=== PATIENT | female | born 1955 | race Caucasian/White ===

== ENCOUNTER 2020-08-17 15:10 | Outpatient (REF) | payer MEDICARE, MEDICAID, SELFPAY ==
--- NOTE | ~2020-08-17 | XR_ITS ---
EXAMINATION: XR HAND, LEFT CLINICAL INFORMATION: Pain COMPARISON: None TECHNIQUE: PA, lateral, and oblique views of the left hand. FINDINGS: Bone alignment is normal. No fracture or dislocation is seen. There is arthritis at the IP joints and first JAIL joint with joint space narrowing and osteophyte formation. Soft tissues are unremarkable. XR/XR hand LT min 3V IMPRESSION: Arthritis.
== END 2020-08-17 15:11 | disposition home or self-care (01) ==
LOC: HO.XRAY 15:10
PROVIDERS: PCP Family Medicine; Visit Provider Family Medicine
DX: M79.645 Pain in left finger(s) (principal); S69.92XA Unspecified injury of left wrist, hand and finger(s), initial encounter; X58.XXXA Exposure to other specified factors, initial encounter; Y93.9 Activity, unspecified; Y92.9 Unspecified place or not applicable; Y99.9 Unspecified external cause status
CPT/HCPCS: 73130

== ENCOUNTER 2020-10-03 14:01 | Outpatient (REF) | payer MEDICARE, MEDICAID, SELFPAY ==
--- NOTE | ~2020-10-03 | XR_ITS ---
EXAMINATION: XR CHEST CLINICAL INFORMATION: COPD COMPARISON: None TECHNIQUE: 2 views of the chest were obtained. FINDINGS: There is a 0.3 cm nodular focus at the right medial cardiophrenic angle that may also project on the lateral view over the spine. This would triangulate to a right lower lobe pulmonary nodule. Summation artifact is also a possibility. Otherwise, the lungs are clear. No pneumothorax or pleural effusion. Heart size is normal. No acute osseous abnormality. Tendon anchors left humeral head. XR/XR chest 2V IMPRESSION: There is a nodular density within the right lower lobe measuring 0.3 cm. In this patient with reported COPD, recommend follow-up with chest CT for further assessment.
== END 2020-10-03 14:02 | disposition home or self-care (01) ==
LOC: HO.XRAY 14:01
PROVIDERS: PCP Family Medicine; Visit Provider Internal Medicine
DX: J44.9 Chronic obstructive pulmonary disease, unspecified (principal); Z79.899 Other long term (current) drug therapy
CPT/HCPCS: 71046; 99202

== ENCOUNTER 2020-10-12 11:02 | Outpatient (REF) | payer MEDICARE, MEDICAID, SELFPAY ==
--- NOTE | 2020-10-12 | PFT_ITS ---
INDICATION: Bronchitis. SPIROMETRY: The FEV1 to FVC 80% with an FEV1 of 2.21 L, which is 94% predicted, and an FVC of 2.75 L, which is 88% predicted. No significant response to bronchodilators noted. Maximum voluntary ventilation 86% predicted. LUNG VOLUMES: The patient cannot achieve a good was not able to perform the lung volumes due to mild panic attack. DIFFUSION CAPACITY: DLCO 70% predicted. COMPARISONS: None. INTERPRETATION: No obstructive ventilatory defect. No significant response to bronchodilators noted. Normal maximum voluntary ventilation. The patient was not able to achieve lung volume due to unable to perform the maneuver. There appears to be a mild diffusion impairment based on her diffusion capacity. Clinical correlation warranted. MD SANTOS Alvarez/MODLatosha / [id number]
== END 2020-10-12 11:03 | disposition home or self-care (01) ==
LOC: HO.RESP 11:02
PROVIDERS: PCP Family Medicine; Visit Provider Internal Medicine
DX: J44.9 Chronic obstructive pulmonary disease, unspecified (principal)
CPT/HCPCS: 94060; 94729

== ENCOUNTER 2020-10-21 10:11 | Outpatient (REF) | payer MEDICARE, MEDICAID, SELFPAY ==
[2020-10-21 11:22] LABS: Estimated Average Glucose 186 mg/dL; Hemoglobin A1c % 8.1 %
[2020-10-21 11:47] LABS: Alanine Aminotransferase 29 U/L (0-31); Albumin Level 4.3 g/dL (3.5-5.0); Alkaline Phosphatase 118 U/L (39-117); Anion Gap 16 (12-20); Aspartate Amino Transferase 43 U/L (5-31); Bilirubin Total 0.6 mg/dL (0.0-1.0); Blood Urea Nitrogen 21 mg/dL (9-16); Carbon Dioxide 27 mmol/L (22-29); Chloride 101 mmol/L (96-108); Cholesterol 167 mg/dL; Estimated Glomerular Filt Rate 55; Glucose Fasting 130 mg/dL (60-99); HDL Cholesterol 36 mg/dL; LDL Cholesterol Calculated 78 mg/dl; Sodium 140 mmol/L (135-145); Total Protein 7.6 g/dL (6.5-8.0); Triglycerides 266 mg/dL
[2020-10-21 11:50] LABS: Glucose Urine UA NEG (NEG); Leukocyte Esterase Urine 1+ (NEG); Nitrite Urine NEG (NEG); PH 6.5 (5.0-8.0); Specific Gravity - Urine 1.015 (1.005-1.025); Urine Blood NEG (NEG); Urine Ketones NEG (NEG); Urine Protein TRACE MG/DL (NEG-TRACE)
[2020-10-21 11:58] LABS: Erythrocyte Sedimentation Rate 53 MM/HR (0-20); Rheumatoid Factor < 15.0 IU/mL (<15.0)
[2020-10-21 12:13] LABS: Appearance Urine HAZY; Color Urine YELLOW
[2020-10-21 12:17] LABS: Bacteria Urine 1+ /LPF; Mucus Urine 1+ /LPF; RBC Urine 0 /HPF (0); Squamous Epithelial Cell Urine 2+ /LPF
[2020-10-21 12:20] LABS: Microalbum/Creatinine Ratio Ur 22.5 ug/mg cr
[2020-10-24 13:36] LABS: Cyclic Citrullinated Peptide <16 UNITS
== END 2020-10-21 10:12 | disposition home or self-care (01) ==
LOC: HO.LAB 10:11
PROVIDERS: PCP Family Medicine; Visit Provider Family Medicine
DX: Z00.00 Encounter for general adult medical examination without abnormal findings (principal); M25.50 Pain in unspecified joint; E11.9 Type 2 diabetes mellitus without complications; I10 Essential (primary) hypertension
CPT/HCPCS: 36415; 80053; 80061; 81001; 81003; 82043; 83036; 84443; 85652; 86141; 86200; 86431

== ENCOUNTER 2020-11-02 13:00 | Outpatient (RCR) | payer MEDICARE, MEDICAID, SELFPAY ==
--- NOTE | 2020-10-11 14:22 | MHC.PT.EP ---
[facility] [place] Office [place] Office [place] Office [address] Gumaro Leal [address] [phone] F: [phone] F: [phone] F: [phone] F: [phone] Physical Therapy Plan of Care Date of Evaluation: Date of Surgery: NA Diagnosis: LUMBAGO WITH SCIATICA L SIDE Assessment: Pt IS 65 YO F REFERRED TO PT FROM DR JAMES WITH L SIDED SCIATICA. PRESENTS WITH COMPLAINTS OF PAIN AT MULTIPLE SITES IN HER BODY. OF SIGNIF NOTE IS THAT Pt REPORTS HAVING 6 C SECTIONS (18 SURGERIES T/O BODY IN TOTAL). Pt WITH SIGNIFICANT CORE WEAKNESS (WITH SIGNIF ABD BULGE NOTED WHEN SUSHILA ABDOMINAL MMS). Pt ALSO HAS L LE WEAKNESS WITH C/O L HIP PAIN. Pt REPORTS SHE HAS BEEN HOMELESS (LIVING IN HER TRUCK ) FOR ABOUT 4 MONTHS (REPORTS PRIOR TO THIS SHE WAS LIVING IN [facility] CARING FOR HER MOTHER AND STEP DAD (WHO ). Pt REPORTS HELPING HER ADULT DTR (WHO LIVES IN [place] WITH 2 TEEN AGED CHILDEREN) CLEAN HER HOUSE. DISCUSSION WITH Pt RE POSSIBILITY OF STAYING WITH HER DTR VS HER TRUCK. (Pt VAGUE ABOUT HER ABILITY TO STAY WITH HER DTR..REPORTS TRAVELS TO HER HOUSE FREQUENTLY TO CLEAN/ASSIST HER DTR AND HAS LEFT HER CATS THERE). Pt WILL LIKELY HAVE TROUBLE PERFORMING HER HOME PROG IF NOT ABLE TO STAY AT SOMEONE'S HOUSE. AND WILL HAVE DIFFICULTY PERFORMING EXS FOR L HIP/LE/LB BECAUSE OF MULTIPLE OTHER AREAS OF PAIN AND LIMITED MOBILITY. WILL TRY 1X/WK TO BEGIN A STRENGTHENING PROGRAM FOR LE/CORE. OF NOTE, Pt MAY BENEFIT FROM VESTIBULAR EVAL TO CHECK IF VERTIGO MAY BE BPPV AND IF SO, SCRIPT FOR TREATMENT Frequency and Duration: The patient will be seen 1X/WK X 6 WKS Short Term Goals: 1. Pt ABLE TO LIFT LE ONTO MAT/OFF MAT FOR TRANSFERS 2. Pt ABLE TO PERF SLR X 10 R ON L 3. Pt TO PERF SUP<>SL<>SIT TRANSFER WITH LOG ROLL TECHNIQUE [facility] Goals: 1. DECREASED BACK AND L LE PAIN AT LEAST 50% WITH ADLS 2. I HEP WITH DC EX PLAN 3. TRUNK ROM AT LEAST 75% FOR LAT FLEX AND ROT B Treatment Plan: Modalities to reduce pain, spasms and effusion. Manual therapy to restore motion and function. Therapeutic exercise to improve strength and flexibility. Neuromuscular re-education for posture and balance. Therapeutic activities to return to functional activities of daily living. Electronically signed by: LOKI DOMINGUEZ PT Please sign and return to therapist. Thank you for your referral.
--- NOTE | 2020-12-19 11:20 | MHC.PT.EP ---
[facility] [place] Office [place] Office [place] Office [address] Gumaro Leal [address] [phone] F: [phone] F: [phone] F: [phone] F: [phone] Physical Therapy Plan of Care Date of Evaluation: Date of Surgery: NA Diagnosis: LUMBAGO WITH SCIATICA L SIDE Assessment: Pt IS 65 YO F REFERRED TO PT FROM DR JAMES WITH L SIDED SCIATICA. PRESENTS WITH COMPLAINTS OF PAIN AT MULTIPLE SITES IN HER BODY. OF SIGNIF NOTE IS THAT Pt REPORTS HAVING 6 C SECTIONS (18 SURGERIES T/O BODY IN TOTAL). Pt WITH SIGNIFICANT CORE WEAKNESS (WITH SIGNIF ABD BULGE NOTED WHEN SUSHILA ABDOMINAL MMS). Pt ALSO HAS L LE WEAKNESS WITH C/O L HIP PAIN. Pt REPORTS SHE HAS BEEN HOMELESS (LIVING IN HER TRUCK ) FOR ABOUT 4 MONTHS (REPORTS PRIOR TO THIS SHE WAS LIVING IN [facility] CARING FOR HER MOTHER AND STEP DAD (WHO ). Pt REPORTS HELPING HER ADULT DTR (WHO LIVES IN [place] WITH 2 TEEN AGED CHILDEREN) CLEAN HER HOUSE. DISCUSSION WITH Pt RE POSSIBILITY OF STAYING WITH HER DTR VS HER TRUCK. (Pt VAGUE ABOUT HER ABILITY TO STAY WITH HER DTR..REPORTS TRAVELS TO HER HOUSE FREQUENTLY TO CLEAN/ASSIST HER DTR AND HAS LEFT HER CATS THERE). Pt WILL LIKELY HAVE TROUBLE PERFORMING HER HOME PROG IF NOT ABLE TO STAY AT SOMEONE'S HOUSE. AND WILL HAVE DIFFICULTY PERFORMING EXS FOR L HIP/LE/LB BECAUSE OF MULTIPLE OTHER AREAS OF PAIN AND LIMITED MOBILITY. WILL TRY 1X/WK TO BEGIN A STRENGTHENING PROGRAM FOR LE/CORE. OF NOTE, Pt MAY BENEFIT FROM VESTIBULAR EVAL TO CHECK IF VERTIGO MAY BE BPPV AND IF SO, SCRIPT FOR TREATMENT Frequency and Duration: The patient will be seen 1X/WK X 6 WKS Short Term Goals: 1. Pt ABLE TO LIFT LE ONTO MAT/OFF MAT FOR TRANSFERS 2. Pt ABLE TO PERF SLR X 10 R ON L 3. Pt TO PERF SUP<>SL<>SIT TRANSFER WITH LOG ROLL TECHNIQUE [facility] Goals: 1. DECREASED BACK AND L LE PAIN AT LEAST 50% WITH ADLS 2. I HEP WITH DC EX PLAN 3. TRUNK ROM AT LEAST 75% FOR LAT FLEX AND ROT B Treatment Plan: Modalities to reduce pain, spasms and effusion. Manual therapy to restore motion and function. Therapeutic exercise to improve strength and flexibility. Neuromuscular re-education for posture and balance. Therapeutic activities to return to functional activities of daily living. Electronically signed by: LOKI DOMINGUEZ PT Please sign and return to therapist. Thank you for your referral.
== END 2020-12-19 11:20 | disposition home or self-care (01) ==
LOC: HO.PTWFD 13:00
PROVIDERS: Visit Provider Family Medicine
DX: M54.42 Lumbago with sciatica, left side (principal)
CPT/HCPCS: 97110; 97116; 97140; 97162

== ENCOUNTER 2020-11-23 08:36 | Outpatient (REF) | payer MEDICARE, MEDICAID, SELFPAY | END 2020-11-23 08:37 | disposition home or self-care (01) | LOC: HO.WFDLDS 08:36 | PROVIDERS: Visit Provider Family Medicine | DX: R30.0 Dysuria (principal) | CPT/HCPCS: 87086 ==

== ENCOUNTER → 2020-12-14 09:14 | Outpatient (BNVA) | payer MEDICARE, MEDICAID, SELFPAY | PROVIDERS: PCP Family Medicine; Visit Provider Nurse Practitioner Family | DX: M47.816 Spondylosis without myelopathy or radiculopathy, lumbar region (principal); M25.50 Pain in unspecified joint; M54.42 Lumbago with sciatica, left side | CPT/HCPCS: 99202 ==

== ENCOUNTER 2021-02-17 10:09 | Outpatient (REF) | payer MEDICARE, MEDICAID, SELFPAY ==
[2021-02-18 17:17] LABS: Lyme Abs Screen <0.90 index
== END 2021-02-17 10:10 | disposition home or self-care (01) ==
LOC: HO.WFDLDS 10:09
PROVIDERS: Visit Provider Family Medicine
DX: T14.8XXA Other injury of unspecified body region, initial encounter (principal); W57.XXXA Bitten or stung by nonvenomous insect and other nonvenomous arthropods, initial encounter
CPT/HCPCS: 36415; 86617; 86618

== ENCOUNTER → 2021-06-08 13:14 | Outpatient (BNVA) | payer MEDICARE, MEDICAID, SELFPAY | PROVIDERS: PCP Family Medicine; Visit Provider Internal Medicine | DX: J44.9 Chronic obstructive pulmonary disease, unspecified (principal); R91.1 Solitary pulmonary nodule; Z88.8 Allergy status to other drugs, medicaments and biological substances; Z79.84 Long term (current) use of oral hypoglycemic drugs; Z79.899 Other long term (current) drug therapy; Z59.00 Homelessness unspecified | CPT/HCPCS: 94618; 99212 ==

== ENCOUNTER 2021-08-18 10:34 | Outpatient (REF) | payer MEDICARE, MEDICAID, SELFPAY ==
[2021-08-18 13:29] LABS: MANUAL DIFF FLAG NO
[2021-08-18 13:31] LABS: Basophils Absolute Auto 0.1 X10*3/uL (0.0-0.2); Basophils Percent Auto 1.2 % (0-2); Eosinophils Absolute Auto 0.2 X10*3/uL (0.0-0.4); Eosinophils Percent Auto 2.3 % (0-4); Hematocrit 38.7 % (37.0-47.0); Hemoglobin 12.6 g/dl (12.0-16.0); Imm Gran Abs Auto 0.02 X10*3/uL (0.00-0.03); Imm Gran Pct Auto 0.3 % (0.0-0.4); Lymphocytes Absolute Auto 2.7 X10*3/uL (1.2-4.9); Lymphocytes Percent Auto 36.9 % (20-40); Mean Corpuscular HGB Conc 32.6 g/dl (31.0-35.0); Mean Corpuscular Hemoglobin 28.9 pg (27.0-33.0); Mean Corpuscular Volume 88.8 fL (80.0-98.0); Mean Platelet Volume 12.2 fL (9.4-12.3); Monocytes Absolute Auto 0.5 X10*3/uL (0.1-1.2); Monocytes Percent Auto 7.1 % (2-11); Neutrophils Absolute Auto 3.9 x10*3/uL (2.0-8.3); Neutrophils Percent Auto 52.2 % (45-73); Platelet Count 199 X10*3/uL (160-400); Red Blood Count 4.36 X10*6/uL (4.20-5.50); Red Cell Distribution Width 13.2 % (11.0-16.0); White Blood Count 7.4 X10*3/uL (4.8-10.8)
[2021-08-18 13:44] LABS: Alanine Aminotransferase 32 U/L (0-31); Albumin Level 4.2 g/dL (3.5-5.0); Alkaline Phosphatase 115 U/L (39-117); Anion Gap 16 (12-20); Aspartate Amino Transferase 55 U/L (5-31); Bilirubin Total 0.5 mg/dL (0.0-1.0); Blood Urea Nitrogen 30 mg/dL (9-16); Carbon Dioxide 27 mmol/L (22-29); Chloride 100 mmol/L (96-108); Cholesterol 191 mg/dL; Estimated Glomerular Filt Rate 49; Glucose Fasting 148 mg/dL (60-99); HDL Cholesterol 38 mg/dL; LDL Cholesterol Calculated 102 mg/dl; Sodium 139 mmol/L (135-145); Total Protein 7.5 g/dL (6.5-8.0); Triglycerides 256 mg/dL
[2021-08-18 14:05] LABS: TSH reflex Free T4 2.86 uIU/mL (0.32-4.0)
== END 2021-08-18 10:35 | disposition home or self-care (01) ==
LOC: HO.WFDLDS 10:34
PROVIDERS: Visit Provider Family Medicine
DX: Z00.00 Encounter for general adult medical examination without abnormal findings (principal)
CPT/HCPCS: 36415; 80053; 80061; 84443; 85025

== ENCOUNTER 2021-08-30 12:39 | Outpatient (REF) | payer MEDICARE, MEDICAID, SELFPAY ==
[2021-08-30 14:40] LABS: Alanine Aminotransferase 25 U/L (0-31); Albumin Level 4.2 g/dL (3.5-5.0); Alkaline Phosphatase 141 U/L (39-117); Anion Gap 14 (12-20); Aspartate Amino Transferase 25 U/L (5-31); Bilirubin Total 0.3 mg/dL (0.0-1.0); Blood Urea Nitrogen 19 mg/dL (9-16); Carbon Dioxide 29 mmol/L (22-29); Chloride 101 mmol/L (96-108); Estimated Glomerular Filt Rate 56; Glucose Random 158 mg/dL (60-115); Potassium 3.7 mmol/L (3.3-5.1); Sodium 140 mmol/L (135-145); Total Protein 7.8 g/dL (6.5-8.0)
== END 2021-08-30 12:40 | disposition home or self-care (01) ==
LOC: HO.WFDLDS 12:39
PROVIDERS: Visit Provider Family Medicine
DX: R74.8 Abnormal levels of other serum enzymes (principal)
CPT/HCPCS: 36415; 80053

== ENCOUNTER 2021-09-15 11:57 | Outpatient (REF) | payer MEDICARE, MEDICAID, SELFPAY ==
[2021-09-15 13:29] LABS: Appearance Urine CLEAR; Color Urine YELLOW; Glucose Urine UA NEG (NEG); Leukocyte Esterase Urine NEG (NEG); Nitrite Urine NEG (NEG); Urine Blood NEG (NEG); Urine Ketones NEG (NEG); Urine Protein NEG (NEG-TRACE)
== END 2021-09-15 11:58 | disposition home or self-care (01) ==
LOC: HO.WFDLDS 11:57
PROVIDERS: Visit Provider Family Medicine
DX: Z00.00 Encounter for general adult medical examination without abnormal findings (principal)
CPT/HCPCS: 81003

== ENCOUNTER → 2021-10-25 13:45 | Outpatient (BNVA) | payer MEDICARE, MEDICAID, SELFPAY | PROVIDERS: PCP Family Medicine; Visit Provider Physician Assistant | DX: R10.9 Unspecified abdominal pain (principal) | CPT/HCPCS: 99202; 99212 ==

== ENCOUNTER → 2021-11-14 10:34 | Outpatient (BNVA) | payer MEDICARE, MEDICAID, SELFPAY | PROVIDERS: PCP Family Medicine; Visit Provider Surgery | DX: R63.8 Other symptoms and signs concerning food and fluid intake (principal); R19.7 Diarrhea, unspecified; R10.9 Unspecified abdominal pain; J44.9 Chronic obstructive pulmonary disease, unspecified; E11.9 Type 2 diabetes mellitus without complications; I10 Essential (primary) hypertension; M62.08 Separation of muscle (nontraumatic), other site | CPT/HCPCS: 99202 ==

== ENCOUNTER 2021-11-22 12:05 | Outpatient (REF) | payer MEDICARE, MEDICAID, SELFPAY ==
[2021-11-22 13:15] LABS: MANUAL DIFF FLAG NO
[2021-11-22 13:20] LABS: Basophils Absolute Auto 0.1 X10*3/uL (0.0-0.2); Basophils Percent Auto 1.1 % (0-2); Eosinophils Absolute Auto 0.4 X10*3/uL (0.0-0.4); Eosinophils Percent Auto 4.4 % (0-4); Hematocrit 38.6 % (37.0-47.0); Hemoglobin 12.3 g/dl (12.0-16.0); Imm Gran Abs Auto 0.03 X10*3/uL (0.00-0.03); Imm Gran Pct Auto 0.3 % (0.0-0.4); Lymphocytes Absolute Auto 3.4 X10*3/uL (1.2-4.9); Lymphocytes Percent Auto 35.4 % (20-40); Mean Corpuscular HGB Conc 31.9 g/dl (31.0-35.0); Mean Corpuscular Hemoglobin 27.8 pg (27.0-33.0); Mean Corpuscular Volume 87.3 fL (80.0-98.0); Mean Platelet Volume 11.7 fL (9.4-12.3); Monocytes Absolute Auto 0.7 X10*3/uL (0.1-1.2); Monocytes Percent Auto 7.5 % (2-11); Neutrophils Absolute Auto 4.9 x10*3/uL (2.0-8.3); Neutrophils Percent Auto 51.3 % (45-73); Platelet Count 201 X10*3/uL (160-400); Red Blood Count 4.42 X10*6/uL (4.20-5.50); Red Cell Distribution Width 13.5 % (11.0-16.0); White Blood Count 9.5 X10*3/uL (4.8-10.8)
[2021-11-22 13:41] LABS: Alanine Aminotransferase 31 U/L (0-31); Albumin Level 4.5 g/dL (3.5-5.0); Alkaline Phosphatase 125 U/L (39-117); Anion Gap 16 (12-20); Aspartate Amino Transferase 38 U/L (5-31); Bilirubin Total 0.4 mg/dL (0.0-1.0); Blood Urea Nitrogen 20 mg/dL (9-16); Calcium 9.7 mg/dL (8.4-10.2); Carbon Dioxide 28 mmol/L (22-29); Chloride 103 mmol/L (96-108); Estimated Glomerular Filt Rate 46; Glucose Random 159 mg/dL (60-115); Lipase 61 U/L (8-78); Sodium 143 mmol/L (135-145); Total Protein 7.7 g/dL (6.5-8.0)
== END 2021-11-22 12:06 | disposition home or self-care (01) ==
LOC: HO.WFDLDS 12:05
PROVIDERS: Visit Provider Family Medicine
DX: Z00.00 Encounter for general adult medical examination without abnormal findings (principal); R10.9 Unspecified abdominal pain
CPT/HCPCS: 36415; 80053; 83690; 85025

== ENCOUNTER 2021-11-28 14:15 | Outpatient (REF) | payer MEDICARE, MEDICAID, SELFPAY ==
[2021-11-28] MEDS: Barium Sulfate Oral (Vanilla) 450 ML ORAL.SUSP 900 ML PO (16:51)
== END 2021-11-28 14:16 | disposition home or self-care (01) ==
LOC: HO.CT 14:15
PROVIDERS: PCP Family Medicine; Visit Provider Family Medicine
DX: R10.9 Unspecified abdominal pain (principal)

== ENCOUNTER 2021-12-06 09:15 | Outpatient (REF) | payer MEDICARE, MEDICAID, SELFPAY ==
--- NOTE | ~2021-12-06 | US_ITS ---
EXAMINATION: US ABDOMEN COMPLETE CLINICAL INFORMATION: Unspecified abdominal pain. COMPARISON: None TECHNIQUE: Real-time imaging of the abdominal viscera. FINDINGS: PANCREAS: Normal. ABDOMINAL AORTA: The proximal, mid, and distal segments are normal in caliber. INFERIOR VENA CAVA: Visualized portions are normal. LIVER: The left lobe of the liver is prominent, measuring up to 13.4 cm. Normal size of the right lobe. The liver contour is normal. There is diffuse increased liver parenchymal echogenicity, consistent with hepatic steatosis. No focal hepatic lesion. There is no intrahepatic biliary duct dilatation seen. GALLBLADDER: Normal. The gallbladder is physiologically distended without evidence of stones, sludge, polyps, wall thickening or pericholecystic fluid. COMMON BILE DUCT: Normal in caliber measuring 0.7 cm in diameter. RIGHT KIDNEY: Midpole simple cyst measures 2.8 cm. No follow-up imaging recommended. No hydronephrosis or renal calculi. The kidney measures 10.5 cm in maximum dimension. LEFT KIDNEY: Lower pole simple cyst measures 2.1 cm. No follow-up imaging recommended. No hydronephrosis or renal calculi. The kidney measures 10.5 cm in maximum dimension. SPLEEN: Normal. The spleen measures 10.6 cm in maximum dimension. FREE FLUID: None. OTHER: Calcification is noted in the area of the uterus. There is a 3 cm cystic structure in the right adnexa. US/US abdomen complete IMPRESSION: 1. Hepatic steatosis. 2. No suspicious abnormality of the abdomen. 3. Note is made of a 3 cm cystic structure in the right adnexal region. Consider pelvic ultrasound evaluation.
== END 2021-12-06 09:16 | disposition home or self-care (01) ==
LOC: HO.US 09:15
PROVIDERS: Visit Provider Family Medicine
DX: R10.9 Unspecified abdominal pain (principal)
CPT/HCPCS: 76700

== ENCOUNTER 2021-12-15 09:08 | Outpatient (REF) | payer MEDICARE, MEDICAID, SELFPAY ==
--- NOTE | ~2021-12-15 | CT_ITS ---
EXAMINATION: CT ABDOMEN AND PELVIS WITH CONTRAST CLINICAL INFORMATION: 58-year-old female with abdominal pain. COMPARISON: Abdomen ultrasound from 12/06/2021. TECHNIQUE: Multidetector volumetric images were obtained from the superior aspect of the liver through the pubic symphysis following administration 85 mL of Omnipaque 350 intravenous contrast. Sagittal and coronal reformatted images were obtained on the technologist's workstation. Oral contrast: Yes This CT examination was performed using dose optimization techniques as appropriate, variously including the following: *Automated exposure control *Adjustment of mA and/or kV according to patient size (this includes techniques or standardized protocols for targeted exams where dose is matched to indication/reason for exam; i.e. extremities or head) *Use of iterative reconstruction technique DLP: 568 mGy-cm FINDINGS: LUNG BASES: No acute findings. No pulmonary consolidation or pleural effusion. Calcified granuloma in the posterior right lower lobe. Also, there is a 0.2 cm noncalcified nodule in the lateral right lower lobe (image 20, series 6) and 0.4 cm noncalcified nodule of the left lower lobe (image 25, series 6). If Fleischner Society guidelines are followed, chest CT follow-up is not recommended in a low-risk patient. LIVER: Again noted is diffuse hepatic steatosis. 1.2 cm simple cyst in the right lobe of the liver. There are two calcified granulomas of the superior right hepatic lobe. GALLBLADDER AND BILIARY TREE: Gallbladder is without radiopaque stones, wall thickening or pericholecystic fluid. No dilated bile ducts. PANCREAS: Normal. No edema, pancreatic ductal dilatation or mass. SPLEEN: Normal. ADRENAL GLANDS: Normal. KIDNEYS AND URETERS: Kidneys are normal in size. No nephrolithiasis, hydronephrosis or perinephric edema. Simple cysts of both kidneys. No renal imaging follow-up recommended for simple cysts. The ureters are unremarkable. BLADDER: Normal. No calculi or wall thickening. BOWEL AND PERITONEUM: No dilated bowel loops. No focal bowel wall thickening, mesenteric fat stranding or free fluid. No inflammatory changes or obstruction along the gastrointestinal tract. ABDOMINAL WALL: Multiple metallic tacks from prior mesh placement of the anterior abdominal wall. VASCULATURE: Mild atherosclerosis of the abdominal aorta without aneurysm. LYMPH NODES: No pathologic sized lymph nodes in the abdomen or pelvis. No inguinal lymphadenopathy. PELVIC VISCERA: The pelvic structures are not optimally evaluated due to streak artifact from the bilateral total hip arthroplasty hardware. 2.8 cm cyst of the right adnexa has a simple appearance. This is almost certainly benign. No pelvic follow-up imaging recommended. SKELETAL: No suspicious bone lesions. Facet osteoarthritis of lumbar spine is worst at the L4-L5 level and there is grade 1 anter[address]isthesis at L4-L5. CT/CT abdomen pelvis w IV con IMPRESSION: * No specific source of abdominal pain is identified. No acute imaging findings in the abdomen or pelvis. * Diffuse hepatic steatosis. * Simple cysts of the kidneys and liver. No follow-up imaging is required. * 2.8 cm simple cyst of the right adnexa is almost certainly benign. No follow-up imaging recommended.
[2021-12-15] MEDS: iohexoL 350 MG/ML 100 ML INFUS..BTL IV (10:49)
[2021-12-15] MEDS: Barium Sulfate Oral (Mocha) 450 ML ORAL.SUSP 900 ML PO (10:50)
== END 2021-12-15 09:09 | disposition home or self-care (01) ==
LOC: HO.CT 09:08
PROVIDERS: PCP Family Medicine; Visit Provider Family Medicine
DX: R10.9 Unspecified abdominal pain (principal)
CPT/HCPCS: 74177; Q9967

== ENCOUNTER 2022-01-25 16:59 | Emergency (ER) | payer MEDICARE, MEDICAID, SELFPAY ==
--- NOTE | 2022-01-25 17:01 | ECG_ITS ---
Test Reason : tachycardia Blood Pressure : / mmHG Vent. Rate : 080 BPM Atrial Rate : 080 BPM P-R Int : 168 ms QRS Dur : 072 ms QT Int : 376 ms P-R-T Axes : 054 006 010 degrees QTc Int : 433 ms Normal sinus rhythm Normal ECG No previous ECGs available Referred By: Generic ED Physician Electronically Signed By:BASILIO MEYERS MD
[2022-01-25 18:17] VITALS: BP 143/82; PULSE 76; RESP 16; TEMP 36.3; O2SAT 97; BMI 36.0
[2022-01-25 18:34] LABS: MANUAL DIFF FLAG NO
[2022-01-25 18:36] LABS: Basophils Absolute Auto 0.1 X10*3/uL (0.0-0.2); Eosinophils Absolute Auto 0.4 X10*3/uL (0.0-0.4); Eosinophils Percent Auto 3.9 % (0-4); Hematocrit 37.5 % (37.0-47.0); Hemoglobin 12.2 g/dl (12.0-16.0); Imm Gran Abs Auto 0.02 X10*3/uL (0.00-0.03); Imm Gran Pct Auto 0.2 % (0.0-0.4); Lymphocytes Absolute Auto 3.2 X10*3/uL (1.2-4.9); Lymphocytes Percent Auto 34.1 % (20-40); Mean Corpuscular HGB Conc 32.5 g/dl (31.0-35.0); Mean Corpuscular Hemoglobin 28.4 pg (27.0-33.0); Mean Corpuscular Volume 87.2 fL (80.0-98.0); Mean Platelet Volume 10.9 fL (9.4-12.3); Monocytes Absolute Auto 0.6 X10*3/uL (0.1-1.2); Monocytes Percent Auto 6.5 % (2-11); Neutrophils Absolute Auto 5.1 x10*3/uL (2.0-8.3); Neutrophils Percent Auto 54.3 % (45-73); Platelet Count 208 X10*3/uL (160-400); Red Cell Distribution Width 13.2 % (11.0-16.0); White Blood Count 9.3 X10*3/uL (4.8-10.8)
[2022-01-25 18:54] LABS: Alanine Aminotransferase 25 U/L (0-31); Albumin Level 4.6 g/dL (3.5-5.0); Alkaline Phosphatase 128 U/L (39-117); Anion Gap 18 (12-20); Aspartate Amino Transferase 38 U/L (5-31); Bilirubin Total 0.4 mg/dL (0.0-1.0); Blood Urea Nitrogen 21 mg/dL (9-16); Calcium 10.1 mg/dL (8.4-10.2); Carbon Dioxide 25 mmol/L (22-29); Chloride 103 mmol/L (96-108); Creatinine Clr Calc Pharmacy 51.1; Estimated Glomerular Filt Rate 46; Glucose Random 148 mg/dL (60-115); Potassium 4.3 mmol/L (3.3-5.1); Sodium 142 mmol/L (135-145); Total Protein 8.1 g/dL (6.5-8.0)
[2022-01-25 18:55] LABS: Troponin-I High Sensitivity 5.5 ng/L (<3.5-17.0)
[2022-01-25 22:35] VITALS: BP 140/74; PULSE 80; RESP 18; TEMP 37.1; O2SAT 97
--- NOTE | 2022-01-25 22:57 | ED_ITS ---
HPI - Arrhythmia/Palpitations General Chief Complaint: Arrhythmia/Palpitations Stated Complaint: Tachycardia Time Seen by Provider: 01/25/22 22:45 Source: patient Limitations: no limitations History of Present Illness HPI narrative: This is a 58-year-old female a with history of hypertension, hyperlipidemia, depression anxiety, diabetes type 2, hypothyroidism, among other problems, who complains of palpitations. The patient states earlier this year she was diagnosed with ?extra heart beats?. Recently she has felt that at times her h eart is racing. Patient also complains of a headache today which came on gradually and is about a 6/10. She tried taking aspirin without relief. She does have chronic neck stiffness for about 3 months. She denies any acutely blurry vision but states her vision is blurry at times. She had chest pain a few days ago. She denies chest pain currently. She denies shortness of breath. She denies abdominal pain, nausea vomiting, lower extremity swelling. She does note that she gets cramping in her feet at times and has to stand up and stretch out her arches. Patient states that her histology specialist is ?an idiot? because he stated that the symptoms were due to neuropathy, when the patient states that ?it is the bones? Related Data Home Medications Medication Instructions Recorded Confirmed cyclosporine 0.05 % eye drops in a 1 drp ophthalmic (eye) BID 09/21/20 11/14/21 dropperette clotrimazole-betamethasone 1 appl topical 10/03/20 11/14/21 %-0.05 % topical cream cetirizine 10 mg tablet 10 mg PO DAILY PRN 10/05/20 11/14/21 blood sugar diagnostic (FreeStyle 04/25/21 11/14/21 Lite Strips) methylprednisolone 4 mg tablet mg PO 08/16/21 11/14/21 Previous Rx's Medication Instructions Recorded miscellaneous medical supply #1 ea 08/16/20 levalbuterol HCl 0.63 mg/3 mL 0.63 mg (3 mL) inhalation TID PRN 10/03/20 solution for nebulization shortness of breath or wheezing 30 days #75 mL levothyroxine 50 mcg tablet 50 mcg PO DAILY 90 days #90 tabs 01/18/21 fluticasone propionate 50 1 spray intranasal Q12H 30 days 01/30/21 mcg/actuation nasal #16 grams spray,suspension atorvastatin 20 mg tablet 20 mg PO DAILY #90 tabs 03/30/21 blood pressure monitor #1 ea 04/25/21 losartan 100 mg tablet 100 mg PO DAILY 90 days #90 tabs 04/25/21 nystatin 100,000 unit/gram topical 1 appl topical BID 1 month #60 05/03/21 powder grams albuterol sulfate 90 mcg/actuation 2 puff inhalation Q4-6H PRN 06/08/21 aerosol inhaler (ProAir HFA) shortness of breath or wheezing 30 days #8.5 grams inhalational spacing device #1 ea 06/08/21 (Aerochamber MV spacer) omeprazole 20 mg capsule,delayed 20 mg PO DAILY #90 caps 06/29/21 release fluticasone 250 mcg-salmeterol 50 1 ea PO BID #60 ea 07/14/21 mcg/dose blistr powdr for inhalation (Alpa Inhcasey) triamterene 75 1 tab PO DAILY 90 days #90 tabs 07/26/21 mg-hydrochlorothiazide 50 mg tablet metformin 500 mg tablet See Rx Instructions PO BID 90 days 10/11/21 #270 tabs bupropion HCl 75 mg tablet 37.5 mg PO BID 30 days #30 tabs 10/18/21 aripiprazole 2 mg tablet (Abilify) 2 mg PO BEDTIME 30 days #30 tabs 11/21/21 walker (Ultra-Light Rollator misc) #1 ea 12/04/21 Allergies Allergy/AdvReac Type Severity Reaction Status Date / Time clarithromycin [From BIAXIN] Allergy Severe FELT ILL Verified 11/14/21 10:41 acetaminophen [From TYLENOL] Allergy Unknown UPSET Verified 11/14/21 10:41 STOMACH duloxetine [DULOXETINE] Allergy Unknown FEELS ILL Verified 11/14/21 10:41 naproxen [From ALEVE] Allergy Unknown FEELS ILL Verified 11/14/21 10:41 gabapentin AdvReac Severe very, very Verified 11/14/21 10:41 sick Review of Systems Review of Systems: Yes all other systems are reviewed and are negative Constitutional: Constitutional: Reports as per HPI, Denies fever(s) and Reports headache(s) Eyes: Eyes: Reports as per HPI and Reports no additional eye complaints ENT: Reports system reviewed and no additional complaints, except as documented, Reports as per HPI, Reports headache(s), Denies nasal congestion, Denies nasal discharge and Denies sore throat Cardiovascular: Cardiovascular: Reports as per HPI, Reports chest pain, Denies syncope, Reports rapid heart rate, Denies leg edema and Denies dyspnea Respiratory: Respiratory: Reports as per HPI, Denies cough and Denies dyspnea Gastrointestinal: Gastrointestinal: Reports as per HPI, Denies abdominal pain, Denies diarrhea and Denies vomiting Genitourinary: Genitourinary: Reports as per HPI, Denies hematuria, Denies urinary frequency and Denies dysuria Musculoskeletal: Musculoskeletal: Reports no additional musculoskeletal complaints and Denies numbness Integumentary/Breasts: Skin/Breast: Reports as per HPI and Denies rash Neurologic: Reports as per HPI, Denies syncope, Reports headache(s), Denies f ocal weakness and Denies numbness Comments: Foot cramps Psychiatric: Psychiatric: Reports no additional psychiatric complaints and Reports as per HPI Endocrine: Endocrine: Reports no additional endocrine complaints and Reports as per HPI Hematologic/Lymphatic: Hematologic/Lymphatic: Reports no additional hematologic/lymphatic complaints, Reports as per HPI and Reports other (No peripheral edema) [facility] Past Medical History Medical History Arthritis Bronchitis with airway obstruction High blood pressure Low TSH level Neuropathy Pulmonary nodule Sciatica Vertigo Surgical History History of delivery History of hip replacement History of plastic surgery Family History Family History Maternal Grandmother Stomach cancer Maternal Grandfather Colon cancer Other Mental health disorder Social History Social History Household Members Other:: Now living in an apartment Housing: Apartment Alcohol intake: never Patient Tobacco Use Status: Never used Tobacco e-Cigarette/Vaping Use: Never Used Second Hand Smoke Exposure: No Advance Directives: No Advance Directives Information Provided: No service: No Current occupational status: disabled Current occupational exposures/hazards: No Cognitive needs: No Hearing needs: No Vision needs: No Physical Exam Vital Signs: Vital Signs: Last Vital Signs Temp 98.4 F 01/25/22 23:24 Pulse 75 01/25/22 23:24 Resp 16 01/25/22 23:24 BP 131/75 01/25/22 23:24 Pulse Ox 97 01/25/22 23:24 O2 Del Method 01/25/22 23:24 BMI result Body Mass Index 36.0 Const: Other: PERRLA Conj [place] Mucous membranes moist Throat clear Neck supple Lungs CTA Heart RRR no murmurs rubs or gallops. Occasional premature beats audible Abd soft, non tender, non distended Extremities no pitting edema Neuro alert and oriented x 3, non focal MDM - Arrhythmia/Palpitations MDM Narrative Medical decision making narrative: Patient with multiple complaints, somewhat meandering, appears well clinically. Patient complains of racing heart but does not normal EKG. Few premature beats are heard on exam. She notes these have been previously documented. CBC and chemistry panel unremarkable. Troponin normal. Patient is treated with ibupr ofen 40 mg p.o. for her headache as well as lorazepam 0.5 mg p.o. for anxiety. Patient is safe for outpatient follow-up. Lab Data Result diagrams: 01/25/22 18:28 01/25/22 18:28 Labs: Lab Results 01/25/22 01/25/22 01/25/22 Range/Units 18:28 18:28 18:28 WBC 9.3 (4.8-10.8) X10*3/uL RBC 4.30 (4.20-5.50) X10*6/uL Hgb 12.2 (12.0-16.0) g/dl Hct 37.5 (37.0-47.0) % MCV 87.2 (80.0-98.0) fL MCH 28.4 (27.0-33.0) pg MCHC 32.5 (31.0-35.0) g/dl RDW 13.2 (11.0-16.0) % Plt Count 208 (160-400) X10*3/uL MPV 10.9 (9.4-12.3) fL Immature Gran % (Auto) 0.2 (0.0-0.4) % Neut % (Auto) 54.3 (45-73) % Lymph % (Auto) 34.1 (20-40) % Laurel % (Auto) 6.5 (2-11) % Eos % (Auto) 3.9 (0-4) % Baso % (Auto) 1.0 (0-2) % Lymph # (Auto) 3.2 (1.2-4.9) X10*3/uL La[place] # (Auto) 0.6 (0.1-1.2) X10*3/uL Eos # (Auto) 0.4 (0.0-0.4) X10*3/uL Baso # (Auto) 0.1 (0.0-0.2) X10*3/uL Abs Immat Gran (auto) 0.02 (0.00-0.03) X10*3/uL Absolute Neuts (auto) 5.1 (2.0-8.3) x10*3/uL Absolute Nucleated RBC 0.000 (0.0-0.012) X10*3/uL Nucleated RBC % (auto) 0.0 (0.0-0.2) /100WBC Sodium 142 (135-145) mmol/L Potassium 4.3 (3.3-5.1) mmol/L Chloride 103 (96-108) mmol/L Carbon Dioxide 25 (22-29) mmol/L Anion Gap 18 (12-20) BUN 21 H (9-16) mg/dL Creatinine 1.18 (0.5-1.4) mg/dL Estim Creat Clear Calc 51.1 Estimated GFR 46 Random Glucose 148 H (60-115) mg/dL Calcium 10.1 (8.4-10.2) mg/dL Total Bilirubin 0.4 (0.0-1.0) mg/dL AST 38 H (5-31) U/L ALT 25 (0-31) U/L Alkaline Phosphatase 128 H (39-117) U/L Troponin I High Sens 5.5 (<3.5-17.0) ng/L Total Protein 8.1 H (6.5-8.0) g/dL Albumin 4.6 (3.5-5.0) g/dL ECG Data Attestation: I personally reviewed and interpreted this ECG as follows: ECG interpretation date: 01/25/22 ECG interpretation time: 23:03 Interpretation: Normal sinus rhythm with a rate of 80. No ST elevation or depression. Normal QRS axis. No ectopy. Normal EKG. Discharge Plan Discharge Clinical Impression: Palpitations, Headache Patient Disposition: Home, Self-Care Instructions: Heart Palpitations (ED), Acute Headache (ED) Additional Instructions: Use ibuprofen for pain. Follow up with her primary care physician as here she may want to order an event monitor you can wear for a month or so to try to capture any abnormal heart rhythm. Return for any new or worsened symptoms Prescriptions: No Action levothyroxine 50 mcg tablet 50 mcg PO DAILY 90 Days Qty: 90 3RF fluticasone propionate 50 mcg/actuation spray,suspension 1 spray intranasal Q12H 30 Days Qty: 16 4RF atorvastatin 20 mg tablet 20 mg PO DAILY Qty: 90 1RF nystatin 100,000 unit/gram powder 1 appl topical BID 30 Days Qty: 60 2RF omeprazole 20 mg capsule,delayed release(DR/EC) 20 mg PO DAILY Qty: 90 0RF fluticasone propion-salmeterol [Wixela Inhub] 250-50 mcg/dose blister with device 1 ea PO BID Qty: 60 0RF triamterene-hydrochlorothiazid 75-50 mg tablet 1 tab PO DAILY 90 Days Qty: 90 2RF metformin 500 mg tablet See Rx Instructions PO BID 90 Days Qty: 270 3RF Rx Instructions: 1 tab in AM and 2 tabs in PM PO 2 times a day; (DME) Ultra-[place] [facility] [place]ructions .Route Qty: 1 0RF Rx Instructions: Rollator Walker with wheels, brakes and seat. Daily As directed. 999 days. Restasis 0.05 % dropperette 1 drp ophthalmic (eye) BID (DME) miscellaneous medical [place] [facility] Instructions .ROUTE .MEDSUPPLY Qty: 1 0RF Rx Instructions: Finger Splint, Daily As directed, 4 weeks. cetirizine 10 mg tablet 10 mg PO DAILY PRN (DME) FreeStyle Lite Strips Strip See Rx Instructions .Route Rx Instructions: test blood sugar two times a day (DME) blood pressure monitor Kit See Rx Instructions .ROUTE .MEDSUPPLY Qty: 1 0RF Rx Instructions: daily As directed, 999days/lifetime losartan 100 mg tablet 100 mg PO DAILY 90 Days Qty: 90 3RF methylprednisolone 4 mg tablet PO bupropion HCl 75 mg tablet 37.5 mg PO BID 30 Days Qty: 30 1RF aripiprazole [Abilify] 2 mg tablet 2 mg PO BEDTIME 30 Days Qty: 30 1RF clotrimazole-betamethasone 1-0.05 % cream topical levalbuterol HCl 0.63 mg/3 mL solution for nebulization 0.63 mg inhalation TID PRN (Reason: shortness of breath or wheezing) 30 Days Qty: 75 2RF albuterol sulfate [ProAir HFA] 90 mcg/actuation HFA aerosol inhaler 2 puff inhalation Q4-6H PRN (Reason: shortness of breath or wheezing) 30 Days Qty: 8.5 2RF (DME) Aerochamber MV Spacer See Rx Instructions .Route Qty: 1 0RF Rx Instructions: As directed
[2022-01-25 23:24] VITALS: BP 131/75; PULSE 75; RESP 16; TEMP 36.9; O2SAT 97
[2022-01-26] MEDS: LORazepam 0.5 MG TABLET PO (00:08)
[2022-01-26] MEDS: Ibuprofen 400 MG TABLET PO (00:08)
[2022-01-26 01:56] VITALS: BP 116/73; PULSE 85; RESP 18; O2SAT 96
== END 2022-01-26 02:00 | disposition home or self-care (01) ==
PROVIDERS: Emergency Provider Emergency Medicine; PCP Family Medicine
DX: R00.0 Tachycardia, unspecified (principal); R51.9 Headache, unspecified; M54.2 Cervicalgia; I10 Essential (primary) hypertension; Z79.899 Other long term (current) drug therapy
CPT/HCPCS: 36415; 80053; 84484; 85025; 93005; 99283; 99284

== ENCOUNTER 2022-02-26 10:44 | Outpatient (REF) | payer MEDICARE, MEDICAID, SELFPAY ==
[2022-02-26 14:20] LABS: Alanine Aminotransferase 33 U/L (0-31); Albumin Level 4.3 g/dL (3.5-5.0); Alkaline Phosphatase 128 U/L (39-117); Anion Gap 13 (12-20); Aspartate Amino Transferase 36 U/L (5-31); Bilirubin Total 0.5 mg/dL (0.0-1.0); Blood Urea Nitrogen 23 mg/dL (9-16); Calcium 10.1 mg/dL (8.4-10.2); Carbon Dioxide 27 mmol/L (22-29); Chloride 102 mmol/L (96-108); Estimated Glomerular Filt Rate 50; Glucose Fasting 187 mg/dL (60-99); Potassium 4.4 mmol/L (3.3-5.1); Sodium 138 mmol/L (135-145); Total Protein 7.5 g/dL (6.5-8.0)
== END 2022-02-26 10:45 | disposition home or self-care (01) ==
LOC: HO.WFDLDS 10:44
PROVIDERS: Visit Provider Family Medicine
DX: Z00.00 Encounter for general adult medical examination without abnormal findings (principal); N17.9 Acute kidney failure, unspecified
CPT/HCPCS: 36415; 80053

== ENCOUNTER → 2022-03-06 10:58 | Outpatient (REF) | payer MEDICARE, MEDICAID, SELFPAY ==
--- NOTE | 2022-03-06 11:01 | HM_ITS ---
Conclusion: 1. Patient was monitored for total period of 2 days and 23 hours 2. Baseline was normal sinus rhythm with average heart rate of 78 beats per minute 3. Total of 138 PACs accounting for rare PACs with total burden of 0.06% 4. Total of 547 PVCs accounting for 0.2% of total beats account for occasional PVCs 5. Patient reported events correlated with sinus rhythm 6. No significant pauses or bradycardia noted MTDD
== END ==
LOC: HO.CARD 10:58
PROVIDERS: Visit Provider Family Medicine
DX: I47.29 Other ventricular tachycardia (principal); R42 Dizziness and giddiness
CPT/HCPCS: 93242

== ENCOUNTER → 2022-04-24 10:16 | Outpatient (BNVA) | payer MEDICARE, MEDICAID, SELFPAY | PROVIDERS: PCP Family Medicine; Referring Provider Family Medicine; Visit Provider Internal Medicine | DX: I47.29 Other ventricular tachycardia (principal); I10 Essential (primary) hypertension | CPT/HCPCS: 99202 ==

== ENCOUNTER 2022-11-22 14:48 | Outpatient (AMB) | payer MEDICARE, MEDICAID, SELFPAY ==
[2022-11-22 14:59] VITALS: BP 116/80; PULSE 73; O2SAT 93; BMI 34.0
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
== END 2022-11-22 16:30 | disposition home or self-care (01) ==
PROVIDERS: Visit Provider Nurse Practitioner Family
DX: R25.1 Tremor, unspecified (principal); R25.9 Unspecified abnormal involuntary movements
CPT/HCPCS: 99204

== ENCOUNTER → 2022-11-22 14:48 | Outpatient (BNVA) | payer MEDICARE, MEDICAID, SELFPAY | PROVIDERS: Visit Provider Nurse Practitioner Family | DX: R25.1 Tremor, unspecified (principal); R25.9 Unspecified abnormal involuntary movements | CPT/HCPCS: 99202 ==

== ENCOUNTER 2023-01-11 | Outpatient (REF) | payer MEDICARE, MEDICAID, SELFPAY | END 2023-01-11 00:01 | LOC: HO.LAB | PROVIDERS: PCP Family Medicine; Visit Provider Physician Assistant Surgical | DX: E66.9 Obesity, unspecified (principal); G20.A1 Parkinson's disease without dyskinesia, without mention of fluctuations; E11.9 Type 2 diabetes mellitus without complications; F02.80 Dementia in other diseases classified elsewhere, unspecified severity, without behavioral disturbance, psychotic disturbance, mood disturbance, and anxiety; Z79.899 Other long term (current) drug therapy | CPT/HCPCS: 99453 ==

== ENCOUNTER 2023-01-11 11:53 | Outpatient (AMB) | payer MEDICARE, MEDICAID, SELFPAY ==
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
[2023-01-11 12:54] VITALS: BP 134/67; PULSE 81; TEMP 36.8; O2SAT 97; BMI 24.4
== END 2023-01-11 15:20 | disposition home or self-care (01) ==
LOC: HO.META 11:53
PROVIDERS: Visit Provider Physician Assistant Surgical
DX: E66.9 Obesity, unspecified (principal)

== ENCOUNTER → 2023-01-18 11:43 | Outpatient (BNVA) | payer MEDICARE, MEDICAID, SELFPAY | PROVIDERS: Visit Provider Physician Assistant Surgical ==

== ENCOUNTER → 2023-01-25 11:48 | Outpatient (BNVA) | payer MEDICARE, MEDICAID, SELFPAY | PROVIDERS: Visit Provider Physician Assistant Surgical ==

== ENCOUNTER 2023-02-01 15:32 | Outpatient (AMB) | payer MEDICARE, MEDICAID, SELFPAY ==
--- NOTE | 2023-02-01 15:16 | HO.OFFWMMET ---
Intake VS Expanded 02/01/23 15:17 Height 5 ft 4 in Weight 194 lb BMI 33.3 Intake Visit Reasons: TELEHONE VISIT metabolic clinic Allergies clarithromycin [From BIAXIN] Allergy (Severe, Verified 01/25/23 12:05) FELT ILL acetaminophen [From TYLENOL] Allergy (Unknown, Verified 01/25/23 12:05) UPSET STOMACH duloxetine [DULOXETINE] Allergy (Unknown, Verified 01/25/23 12:05) FEELS ILL naproxen [From ALEVE] Allergy (Unknown, Verified 01/25/23 12:05) FEELS ILL gabapentin Adverse Reaction (Severe, Verified 01/25/23 12:05) very, very sick HPI HPI Comments History of Present Illness Details She tried the Orgain protein shake and she used a whisk to blend and did not like it. She is not happy to use any protein shakes. She states she is going to order a Mushroom coffee She states she has intolerance to all artificial sweeteners. She found a protein bar called Think 18 gm protein. She has not tried it yet. She is not measuring her food. She is trying to walk as she is able. [facility] Medical History (Updated 01/11/23 @ 15:19 by LIZETT Artis) Pulmonary nodule Bronchitis with airway obstruction Sciatica Neuropathy Arthritis High blood pressure Low TSH level Vertigo Surgical History History of shoulder surgery History of plastic surgery History of hip replacement History of delivery Family History Maternal Grandmother Stomach cancer Maternal Grandfather Colon cancer Mother Dementia Hypertension Diabetes Father Parkinsons Diabetes Sister Fatty liver Sister Parkinsons Diabetes Daughter Diabetes Hypertension Lupus Anxiety Depression Son Myocardial infarction Other Mental health disorder Social History Household Members Other:: Now living in an apartment Housing: Apartment Alcohol intake: former Patient Tobacco Use Status: Former Tobacco user e-Cigarette/Vaping Use: Never Used Second Hand Smoke Exposure: No service: No Current occupational status: disabled Current occupational exposures/hazards: No Cognitive needs: No Hearing needs: No Vision needs: No Assessment & Plan Assessment & Plan (1) Obesity (BMI 30-39.9): Code(s): E66.9 - Obesity, unspecified Plan: Patient is unable to tolerate any artificial sweeteners and has had significant difficulty with all meal plans. She will try the think protein bar and if she likes that, she will use that and 2 meals consisting of 7 forks of protein and 7 forks of salad or vegetables each. continued exercise as she is able. Will follow-up in the office as indicated. Coding Level of Care Code 48323 RPM each addnl 20 min Diagnoses Obesity (BMI 30-39.9) E66.9
[2023-02-01 15:17] VITALS: BMI 33.3
== END 2023-02-01 16:11 | disposition home or self-care (01) ==
LOC: HO.META 15:32
PROVIDERS: Visit Provider Physician Assistant Surgical
DX: E66.9 Obesity, unspecified (principal)
CPT/HCPCS: 99499

== ENCOUNTER → 2023-02-01 15:32 | Outpatient (BNVA) | payer MEDICARE, MEDICAID, SELFPAY | PROVIDERS: Visit Provider Physician Assistant Surgical ==

== ENCOUNTER 2024-07-02 08:31 | Outpatient (AMB) | payer MEDICAID, SELFPAY ==
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
[2024-07-02 08:33] VITALS: BP 110/74; PULSE 71; O2SAT 97; BMI 35.7
== END 2024-07-02 09:04 | disposition home or self-care (01) ==
LOC: HO.HSMS 08:32
PROVIDERS: PCP Internal Medicine; Visit Provider Psychiatry & Neurology Neurology
DX: R20.2 Paresthesia of skin (principal)
CPT/HCPCS: 99214

== ENCOUNTER → 2024-07-02 08:31 | Outpatient (BNVA) | payer MEDICAID, SELFPAY | PROVIDERS: PCP Internal Medicine; Visit Provider Psychiatry & Neurology Neurology | DX: R20.2 Paresthesia of skin (principal) | CPT/HCPCS: 99212 ==

== ENCOUNTER 2024-11-03 09:40 | Outpatient (AMB) | payer MEDICARE, MEDICAID, SELFPAY ==
--- OUTSIDE RECORDS SUMMARY | 2024-10-28 09:15 | XMS_ITS ---
Author Organization [facility], Address [address] [place] [address] Care Team Providers Care Pattern Weaver Name Role Phone [facility] Primary Care Provider ALLERGIES Allergen (clinical drug ingredient) Drug/Non Drug [...] Date End Date Status Carvedilol 3.125 MG TAKE 1 TABLET BY CYNTHIA TH TWICE DAILY WITH FOOD for 90 Active Jardiance 25 MG TAKE 1 TABLET BY CYNTHIA TH DAILY for 90 Active Loperamide HCl 2 MG TAKE 1 CAPSULE BY MO UTH EVERY 4 HOURS NEEDED FOR LOOSE STOOLS Oral for 60 Active Nystatin 989593 UNIT/GM 1 application Ex ternally Twice a day for 30 days 01/03/2024 Active Ezetimibe 10 MG TAKE 1 TABLET BY CYNTHIA TH DAILY for 90 Active Atorvastatin Calcium 80 MG 1 tablet Oral ly Once a day for 90 Days Active Lidoderm 5 % 1 patch remove after 12 hours Externally Once a day for 10 days 04/06/2024 Active traMADol HCl 50 MG 1 tablet as needed O rally every 6 hrs partial fill upon request for 5 days 04/06/2024 Active Pantoprazole Sodium 40 MG Oral for 90 Active Amitriptyline HCl 25 MG TAKE 1 TABLET BY MOUTH AT BEDTIME Oral for 30 Active Fluticasone Propionate 50 MCG/ACT 1 spray in each nostril Nasally Once a day for 30 days Active Meclizine HCl 25 MG 1 tablet as needed O rally every 12 hrs for 14 days Active metFORMIN HCl 500 MG 1 tablet with a van l Orally Twice a day for 90 Days Active Losartan Potassium 100 MG TAKE 1 TABLET BY MOUTH DAILY Oral Active Loratadine 10 MG 1 tablet Orally Once a day for 90 Days Active traMADol HCl 50 MG 1 tablet as needed O rally every 6 hrs partial fill upon request for 3 days 09/11/2024 Active Otezla 10 & 20 & 30 MG as directed Orall y Twice a day 09/30/2024 Active Triamcinolone Acetonide 0.1 % 1 application Externally Twice a day 01/03/2024 Active Levothyroxine Sodium 50 MCG TAKE 1 TABLE T BY MOUTH DAILY for 90 Active Triamterene-HCTZ 75-50 MG TAKE 1 TABLET BY MOUTH DAILY IN THE MORNING for 90 Active Glimepiride 1 MG TAKE 1 TABLET BY CYNTHIA TH TWICE DAILY IN THE MORNING AND IN THE AFTERNOON for 90 Active Clobetasol Propionate 0.05 % 1 application Externally Twice a day for 30 days 09/08/2024 Active Encounters Encounter Location Date Provider Diagnosis Brandon Yuen, [address] [place] [address] 10/29/19 Joseph Taylor ASSESSMENTS Encounter Date Diagnosis Assessment Notes Treatment Notes Treatment Clinical Notes Section Notes 10/28/2024 Other This chart has been transcribed by a computerized dictation system. There are likely to be multiple tire man inaccuracies despite chart review. PLAN OF TREATMENT Treatment Notes Assessment Notes Other This chart has been transcribed by a computerized dictation system. There are likely to be multiple tire man inaccuracies despite chart review. Next Appt Details Provider Name:Joseph rose, 11/04/2024 10:45:00 AM, [address] [place], [id number],
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
--- OUTSIDE RECORDS SUMMARY | 2024-11-03 10:15 | XMS_ITS | Patient Health Record ---
Author Organization Brandon Yuen Address [address] [place] [address] Care Team Providers Care Assembler Camper Name Role Phone Joseph Taylor Primary Care Provider [phone] ALLERGIES Allergen (clinical drug ingredient) Drug/Non Drug Allergy documented on EMR Reaction Allergy Type Onset Date Status Biaxin Unknown Drug Allergy Active acetaminophen Tylenol Unknown Drug Allergy Act gerard codeine Codeine Unknown Drug Allergy Active duloxetine Duloxetine Unknown Drug Allergy Activ e gabapentin Gabapentin Unknown Drug Allergy Activ e naproxen Naproxen Unknown Drug Allergy Active RESULTS Component Value Reference Range Notes Hemoglobin [id number] Reviewed date:01/22/2024 07:08:27 AM Interpretation: Performing Lab:[facility] [place], [facility], Phone - [phone], Director - MDNehaldry Notes/Report: Hemoglobin A1c 8.7 4.8-5.6 % . Prediabetes: 5.7 - 6.4 Diabetes: >6.4 Glycemic control for adults with diabetes: <7.0 TSH+Free [id number] Reviewed date:01/22/2024 07:08:27 AM Interpretation: Performing Lab:[facility] [place], [address] [facility], [place], Phone - [phone], Director - MDJodry Notes/Report: TSH 3.690 0.450-4.500 uIU/mL T4,Free(Direct) 1.19 0.82-1.77 ng/dL Lipid Panel-[id number] Reviewed date:01/22/2024 07:08:27 AM Interpretation: Performing Lab:[facility] [place], [address] [facility], Phone - [phone], Director - MDJodry Notes/Report: Cholesterol, Total 254 100-199 mg/dL Triglycerides 251 0-149 mg/dL HDL Cholesterol 40 >39 mg/dL VLDL Cholesterol Jeff 47 5-40 mg/dL LDL Chol Calc (NIH) 167 0-99 mg/dL LDL Calc Comment: Comp. Metabolic Panel (13)-[id number] Reviewed date:01/22/2024 07:08:27 AM Interpretation: Performing Lab:Tisha Ha, [address] [facility], Phone - [phone], Director - MDJoy Notes/Report: Glucose 145 70-99 mg/dL BUN 25 8-27 mg/dL Creatinine 1.05 0.57-1.00 mg/dL eGFR 57 >59 mL/min/1.73 BUN/Creatinine Ratio 24 12-28 Sodium 142 134-144 mmol/L Potassium 4.4 3.5-5.2 mmol/L Chloride 99 96-106 mmol/L Carbon Dioxide, Total 25 20-29 mmol/L Calcium 9.8 8.7-10.3 mg/dL Protein, Total 7.4 6.0-8.5 g/dL Albumin 4.4 3.9-4.9 g/dL Globulin, Total 3.0 1.5-4.5 g/dL Bilirubin, Total 0.3 0.0-1.2 mg/dL Alkaline Phosphatase 126 44-121 IU/L AST (SGOT) 41 0-40 IU/L Hemoglobin [id number] Reviewed date:06/05/2024 07:06:08 AM Interpretation: Performing Lab:Tisha Ha, [address] [facility], Phone - [phone], Director - Sohan Notes/Report: Hemoglobin A1c 7.2 4.8-5.6 % . Prediabetes: 5.7 - 6.4 Diabetes: >6.4 Glycemic control for adults with diabetes: <7.0 Lipid Panel-[id number] Reviewed date:06/05/2024 07:06:08 AM Interpretation: Performing Lab:Tisha Ha, [address] [facility], [place], Phone - [phone], Director - Ethany Notes/Report: Cholesterol, Total 219 100-199 mg/dL Triglycerides 382 0-149 mg/dL HDL Cholesterol 33 >39 mg/dL VLDL Cholesterol Jeff 67 5-40 mg/dL LDL Chol Calc ([facility]) 119 0-99 mg/dL LDL Calc Comment: Comp. Metabolic Panel (13)-[id number] Reviewed date:06/05/2024 07:06:08 AM Interpretation: Performing Lab:Tisha Ha [address] [place] [address], Phone - [phone], Director - MDJodry Notes/Report: Glucose 109 70-99 mg/dL BUN 21 8-27 mg/dL Creatinine 1.13 0.57-1.00 mg/dL eGFR 52 >59 mL/min/1.73 BUN/Creatinine Ratio 19 12-28 Sodium 139 134-144 mmol/L Potassium 3.7 3.5-5.2 mmol/L Chloride 96 96-106 mmol/L Carbon Dioxide, Total 24 20-29 mmol/L Calcium 9.2 8.7-10.3 mg/dL Protein, Total 7.4 6.0-8.5 g/dL Albumin 4.1 3.9-4.9 g/dL Globulin, Total 3.3 1.5-4.5 g/dL Bilirubin, Total 0.3 0.0-1.2 mg/dL Alkaline Phosphatase 144 44-121 IU/L AST (SGOT) 34 0-40 IU/L Hemoglobin [id number] Reviewed date:11/03/2024 08:32:21 AM Interpretation: Performing Lab:Tisha Ha [address] [place] [address], Phone - [phone], Director - Ralphdry Notes/Report: Hemoglobin A1c 7.9 4.8-5.6 % . Prediabetes: 5.7 - 6.4 Diabetes: >6.4 Glycemic control for adults with diabetes: <7.0 TSH+Free [id number] Reviewed date:11/03/2024 08:32:21 AM Interpretation: Performing Lab:[facility] [address] [place] [address], Phone - [phone], Director - MDJodry Notes/Report: TSH 8.660 0.450-4.500 uIU/mL T4,Free(Direct) 1.01 0.82-1.77 ng/dL Lipid Panel-[id number] Reviewed date:11/03/2024 08:32:21 AM Interpretation: Performing Lab:[facility] [place] [address] [place] [address], Phone - [phone], Director - MDJodry Notes/Report: Cholesterol, Total 173 100-199 mg/dL Triglycerides 215 0-149 mg/dL HDL Cholesterol 43 >39 mg/dL VLDL Cholesterol Jeff 37 5-40 mg/dL LDL Chol Calc ([facility]) 93 0-99 mg/dL LDL Calc Comment: Comp. Metabolic Panel (13)-[id number] Reviewed date:11/03/2024 08:32:21 AM Interpretation: Performing Lab:[facility] [place], [address] [facility], [place], Phone - [phone], Director - Sohan Notes/Report: Glucose 137 70-99 mg/dL BUN 19 8-27 mg/dL Creatinine 1.09 0.57-1.00 mg/dL eGFR 54 >59 mL/min/1.73 BUN/Creatinine Ratio 17 12-28 Sodium 142 134-144 mmol/L Potassium 3.6 3.5-5.2 mmol/L Chloride 100 96-106 mmol/L Carbon Dioxide, Total 21 20-29 mmol/L Calcium 9.7 8.7-10.3 mg/dL Protein, Total 7.1 6.0-8.5 g/dL Albumin 4.0 3.8-4.8 g/dL Globulin, Total 3.1 1.5-4.5 g/dL Bilirubin, Total 0.4 0.0-1.2 mg/dL Alkaline Phosphatase 157 44-121 IU/L AST (SGOT) 21 0-40 IU/L [id number] Reviewed date:11/03/2024 08:32:21 AM Interpretation: Performing Lab:[facility] [place], [address] [facility], [place], Phone - [phone], Director - Sohan Notes/Report: NT-proBNP 69 0-301 pg/mL The following cut-points have been suggested for the use of proBNP for the diagnostic evaluation of heart failure (HF) in patients with acute dyspnea: . Modality Age Optimal Cut (years) Point Diagnosis (rule in HF) <50 450 pg/mL 50 - 75 900 pg/mL >75 1800 pg/mL Exclusion (rule out HF) Age independent 300 pg/mL Sedimentation Rate-Davionre n-[id number] Reviewed date:09/09/2024 02:01:30 PM Interpretation: Performing Lab:[facility] [place], [address] [place] [address], Phone - [phone], Director - Sohan Notes/Report: Sedimentation Rate-Alergren 21 0-40 mm/hr Lyme Disease Serology w/Refl ex-[id number] Reviewed date:09/09/2024 02:01:30 PM Interpretation: Performing Lab:[facility] [place], [address] [place] [address], [place], Phone - [phone], Director - Sohan Notes/Report: Lyme Total Antibody MAGALI Negative Negative Lyme antibodies not detected. Reflex testing is not indicated. No laboratory evidence of infection with B. burgdorferi (Lyme disease). Negative results may occur in patients recently infected (less than or equal to 14 days) with B. burgdorferi. If recent infection is suspected, repeat testing on a new sample collected in 7 to 14 days is recommended. CBC with Diff, Platelet, NLR -[id number] Reviewed date:09/09/2024 02:01:30 PM Interpretation: Performing Lab:[facility] [place], [address] [place] [address], [place], Phone - [phone], Director - Sohan Notes/Report: WBC 7.9 3.4-10.8 x10E3/uL RBC 4.84 3.77-5.28 x10E6/uL Hemoglobin 13.6 11.1-15.9 g/dL Hematocrit 42.4 34.0-46.6 % MCV 88 79-97 fL MCH 28.1 26.6-33.0 pg MCHC 32.1 31.5-35.7 g/dL RDW 15.7 11.7-15.4 % Platelets 184 150-450 x10E3/uL Neutrophils 59 Not Estab. % Lymphs 33 Not Estab. % Monocytes 6 Not Estab. % Eos 1 Not Estab. % Basos 1 Not Estab. % Immature Cells Neutrophils (Absolute) 4.6 1.4-7.0 x10E3/uL Lymphs (Absolute) 2.7 0.7-3.1 x10E3/uL Neut/Lymph Ratio 1.7 0.0-2.9 ratio Published COVID-19 studies suggest: Low likelihood of severe COVID-19 disease progression 0.0-2.9 High likelihood of severe COVID-19 disease progression >4.9 Monocytes(Absolute) 0.5 0.1-0.9 x10E3/uL Eos (Absolute) 0.1 0.0-0.4 x10E3/uL Baso (Absolute) 0.1 0.0-0.2 x10E3/uL Immature Granulocytes 0 Not Estab. % Immature Grans (Abs) 0.0 0.0-0.1 x10E3/uL NRBC Hematology Comments: REASON FOR REFERRAL Reason Consultation Diagnosis 1 Stage 3a chronic kid brian disease (N18.31) Referral Organization Joseph Taylor Md Referring Provider First Name Joseph Referring Provider Last Name Brandon Referring Provider Speciality Internal edicine Referred Provider Specialty Nephrology General Notes Adair Patiño 05/2024 12:55:02 PM EDT > Faxed to renal and transplant , Adair Patiño 08/11/2024 09:35:08 AM EDT > PT Scheduled for September 29 at 1:45 Clinical Notes [facility]al and Transplant , , F: [phone] Referral Priority Routine Referral Appointment Date 09/29/2024 Reason 30 minute procedure: Excision biopsy of skin lesion left side of the face Diagnosis 1 Facial skin lesion ( L98.9) Referral Organization Joseph Taylor Md Referring Provider First Name Joseph Referring Provider Last Name Brandon Referring Provider Speciality Internal edicine Referred Provider Specialty Other Medica l Care General Notes Alex CAROLPurvi 04/2024 10:55:13 AM EDT > patient aware of the procedure Referral Priority Routine MEDICATIONS Medication SIG (Take, Route, Frequency, Duration) Notes Start Date End Date Status metFORMIN HCl 500 MG TAKE 1 TABLET BY MO UTH TWICE DAILY WITH A MEAL for 90 Active Atorvastatin Calcium 80 MG TAKE 1 TABLET BY MOUTH DAILY for 90 Active Glimepiride 1 MG TAKE 1 TABLET BY CYNTHIA TH TWICE DAILY IN THE MORNING AND IN THE AFTERNOON for 90 Active Fluticasone Propionate 50 MCG/ACT 1 spray in each nostril Nasally Once a day for 30 days Active Carvedilol 3.125 MG TAKE 1 TABLET BY CYNTHIA TH TWICE DAILY WITH FOOD for 90 Active Meclizine HCl 25 MG 1 tablet as needed O rally every 12 hrs for 14 days Active Jardiance 25 MG TAKE 1 TABLET BY CYNTHIA TH DAILY for 90 Active metFORMIN HCl 500 MG 1 tablet with a van l Orally Twice a day for 90 Days Active Atorvastatin Calcium 80 MG 1 tablet Oral ly Once a day for 90 Days Active Clobetasol Propionate 0.05 % 1 application Externally Twice a day for 30 days 09/08/2024 Active Lidoderm 5 % 1 patch remove after 12 hours Externally Once a day for 10 days 04/06/2024 Active traMADol HCl 50 MG 1 tablet as needed O rally every 6 hrs partial fill upon request for 3 days 09/11/2024 Active traMADol HCl 50 MG 1 tablet as needed O rally every 6 hrs partial fill upon request for 5 days 04/06/2024 Active Otezla 10 & 20 & 30 MG as directed Orall y Twice a day 09/30/2024 Active Pantoprazole Sodium 40 MG Oral for 90 Active Triamcinolone Acetonide 0.1 % 1 application Externally Twice a day 01/03/2024 Active Amitriptyline HCl 25 MG TAKE 1 TABLET BY MOUTH AT BEDTIME Oral for 30 Active Levothyroxine Sodium 50 MCG TAKE 1 TABLE T BY MOUTH DAILY for 90 Active Loperamide HCl 2 MG TAKE 1 CAPSULE BY MO UTH EVERY 4 HOURS NEEDED FOR LOOSE STOOLS Oral for 60 Active Triamterene-HCTZ 75-50 MG TAKE 1 TABLET BY MOUTH DAILY IN THE MORNING for 90 Active Losartan Potassium 100 MG TAKE 1 TABLET BY MOUTH DAILY Oral Active Nystatin 418797 UNIT/GM 1 application Ex ternally Twice a day for 30 days 01/03/2024 Active Loratadine 10 MG 1 tablet Orally Once a day for 90 Days Active Ezetimibe 10 MG TAKE 1 TABLET BY CYNTHIA TH DAILY for 90 Active IMMUNIZATIONS Vaccine Route Administration Date Status Comme nts *Influenza (Fluarix Quad) IM Intramuscular 01/02/2024 Admi nistered PROBLEMS Problem Type ICD Code Onset Dates Problem Status W/U Status Risk SNOMED Code Notes Problem Postmenopausal bleeding (N95.0) Active confirmed 39624598 Problem Mixed hyperlipidemia (E78.2) Active confirmed 617809316 Problem Essential hypertension (I10) Active confirmed 55254337 Problem Acquired hypothyroidism (E03.9) Active confirmed 571523431 Problem Plaque psoriasis (L40.0) Active confirmed 119493617 Problem Type 2 diabetes mellitus without complication, without long-term current use of insulin (E11.9) Active confirmed 329672814 Problem Non-seasonal allergic rhinitis, unspecified trigger (J30.89) Active confirmed 67349007 Problem Stage 3a chronic kidney disease (N18.31) Active confirmed 009953533 VITAL SIGNS Heart Rate 76 /min 09/30/2024 Blood pressure diastolic 80 mm Hg 09/30/2024 Height 64 in 09/30/2024 Blood pressure systolic 118 mm Hg 09/30/2024 Weight 212.6 lbs 09/30/2024 BMI 36.49 kg/m2 09/30/2024 PROCEDURES Procedure Date Ordered Date Performed Result Body Sit e *EKG 12/19/2023 N/A Encounters Encounter Location Date Provider Diagnosis [address] [address] 01/20/2024 Joseph [place] Essential hypertensi on I10 ; Type 2 diabetes mellitus without complication, without long-term current use of insulin E11.9 ; Mixed hyperlipidemia E78.2 ; Acquired hypothyroidism E03.9 and Non-seasonal allergic rhinitis, unspecified trigger J30.[address] [address] 02/04/2024 Joseph Brandon Essential hypertensi on I10 ; Type 2 diabetes mellitus without complication, without long-term current use of insulin E11.9 ; Mixed hyperlipidemia E78.2 ; Acquired hypothyroidism E03.9 and Non-seasonal allergic rhinitis, unspecified trigger J30.[address] [address] 06/03/2024 Joseph Taylor Essential hypertensi on I10 ; Type 2 diabetes mellitus without complication, without long-term current use of insulin E11.9 ; Mixed hyperlipidemia E78.2 ; Acquired hypothyroidism E03.9 ; Non-seasonal allergic rhinitis, unspecified trigger J30.89 and Benign paroxysmal positional vertigo, unspecified laterality H81.[address] [address] 06/15/2024 Joseph [place] Essential hypertensi on I10 ; Type 2 diabetes mellitus without complication, without long-term current use of insulin E11.9 ; Mixed hyperlipidemia E78.2 ; Acquired hypothyroidism E03.9 ; Non-seasonal allergic rhinitis, unspecified trigger J30.89 and Benign paroxysmal positional vertigo, unspecified laterality H81.[address] [address] 08/05/2024 Joseph Taylor Essential hypertensi on I10 ; Type 2 diabetes mellitus without complication, without long-term current use of insulin E11.9 ; Mixed hyperlipidemia E78.2 ; Acquired hypothyroidism E03.9 ; Non-seasonal allergic rhinitis, unspecified trigger J30.89 ; Benign paroxysmal positional vertigo, unspecified laterality H81.10 ; Stage 3a chronic kidney disease N18.31 ; Facial skin lesion L98.9 and Seborrheic keratosis L82.[address] [address] 09/10/2024 Joseph Taylor Acute abdomen R10.0 and Postmenopausal bleeding N95.[address] [address] 12/19/2023 Joseph Taylor Essential hypertensi on I10 ; Preop exam for internal medicine Z01.818 ; Type 2 diabetes mellitus without complication, without long-term current use of insulin E11.9 ; Mixed hyperlipidemia E78.2 ; Acquired hypothyroidism E03.9 and Non-seasonal allergic rhinitis, unspecified trigger J30.[address] [address] 09/11/2024 Joseph Taylor [address] [address] 12/18/2023 Joseph Taylor Pain, dental K08.89 and Type 2 diabetes mellitus without complication, without long-term current use of insulin E11.[address] [address] 01/02/2024 Joseph Taylor Encounter for immunization Z23 and Cutaneous candidiasis B37.[address] [address] 04/06/2024 Joseph Taylor Rib pain on right si de R07.[address] [address] 09/08/2024 Joseph Taylor Plaque psoriasis L40 .[address] [address] 09/30/2024 Joseph Taylor Plaque psoriasis L40 .0 and Pruritus L29.[address] [address] 10/28/2024 [facility], [address] [facility] [address] 12/18/2023 [facility], [address] [facility] [place] [address] 01/03/2024 Joseph Taylor Cutaneous candidiasi s B37.2 [facility], [address] [facility] [address] 01/09/2024 Joseph Taylor Essential hypertensi on I10 [facility], [address] [facility] [place] [address] 02/04/2024 [facility], [address] [place] [address] 02/13/2024 Joseph [facility]ly [facility], [address] [facility] [address] 05/06/2024 [facility], [address] [place] [address] 05/20/2024 [facility], [address] [place] [address] 05/21/2024 [facility], [address] [place] [address] 06/01/2024 [facility], [address] [address] 09/01/2024 [facility], [address] [facility] [place] [address] 09/11/2024 Joseph Taylor ASSESSMENTS Encounter Date Diagnosis Assessment Notes Treatment Notes Treatment Clinical Notes Section Notes 06/03/2024 Essential hypertension (ICD-10 - I10) 06/03/2024 Type 2 diabetes mellitus without complication, without long-term current use of insulin (ICD-10 - E11.9) 02/04/2024 Type 2 diabetes mellitus without complication, without long-term current use of insulin (ICD-10 - E11.9) 02/04/2024 Essential hypertension (ICD-10 - I10) 01/09/2024 Essential hypertension (ICD-10 - I10) 01/03/2024 Cutaneous candidiasis (ICD-10 - B37.2) 01/02/2024 Cutaneous candidiasis (ICD-10 - B37.2) 01/02/2024 Encounter for immunization (ICD-10 - Z23) 12/18/2023 Pain, dental (ICD-10 - K08.89) In accordance with Chapter 52 - Acts of 2016, '' An Act Relative to Substance Use Treatment, Education and Prevention, the risks associated with opioid and opioid-like substances has been discussed with the patient. The patient clearly understands that the medication is to control chronic pain and to improve quality of life and functionality. Patient uses the medication judiciously as prescribed and displays no aberrant behavior. The patient has been made aware of other non-opioid treatment options including medications and interventional procedures. The patient was given the option to fill the prescription in lesser amount. [place] PAT verified. 12/18/2023 Type 2 diabetes mellitus without complication, without long-term current use of insulin (ICD-10 - E11.9) 12/19/2023 Essential hypertension (ICD-10 - I10) 04/06/2024 Rib pain on right side (ICD-10 - R07.81) In accordance with Chapter 52 - Acts of 2016, '' An Act Relative to Substance Use Treatment, Education and Prevention, the risks associated with opioid and opioid-like substances has been discussed with the patient. The patient clearly understands that the medication is to control chronic pain and to improve quality of life and functionality. Patient uses the medication judiciously as prescribed and displays no aberrant behavior. The patient has been made aware of other non-opioid treatment options including medications and interventional procedures. The patient was given the option to fill the prescription in lesser amount. [place] PAT verified. 06/15/2024 Essential hypertension (ICD-10 - I10) 12/19/2023 Preop exam for internal medicine (ICD-10 - Z01.818) EKG normal sinus rhythm no acute ischemic changes. Patient is clear for proposed surgery. 01/20/2024 Essential hypertension (ICD-10 - I10) 01/20/2024 Type 2 diabetes mellitus without complication, without long-term current use of insulin (ICD-10 - E11.9) 08/05/2024 Essential hypertension (ICD-10 - I10) 08/05/2024 Type 2 diabetes mellitus without complication, without long-term current use of insulin (ICD-10 - E11.9) 09/08/2024 Plaque psoriasis (ICD-10 - L40.0) 09/10/2024 Acute abdomen (ICD-10 - R10.0) Patient was advised to go to emergency room immediately to rule out appendicitis. 09/10/2024 Postmenopausal bleeding (ICD-10 - N95.0) Patient explained that she needs to see her digital composer for endometrial biopsy to rule out uterine cancer. 09/30/2024 Plaque psoriasis (ICD-10 - L40.0) 09/30/2024 Pruritus (ICD-10 - L29.9) 06/15/2024 Type 2 diabetes mellitus without complication, without long-term current use of insulin (ICD-10 - E11.9) 01/20/2024 Mixed hyperlipidemia (ICD-10 - E78.2) 08/05/2024 Mixed hyperlipidemia (ICD-10 - E78.2) 12/19/2023 Type 2 diabetes mellitus without complication, without long-term current use of insulin (ICD-10 - E11.9) 02/04/2024 Mixed hyperlipidemia (ICD-10 - E78.2) 06/03/2024 Mixed hyperlipidemia (ICD-10 - E78.2) 06/15/2024 Mixed hyperlipidemia (ICD-10 - E78.2) 08/05/2024 Acquired hypothyroidism (ICD-10 - E03.9) 06/03/2024 Acquired hypothyroidism (ICD-10 - E03.9) 02/04/2024 Acquired hypothyroidism (ICD-10 - E03.9) 12/19/2023 Mixed hyperlipidemia (ICD-10 - E78.2) 01/20/2024 Acquired hypothyroidism (ICD-10 - E03.9) 02/04/2024 Non-seasonal allergic rhinitis, unspecified trigger (ICD-10 - J30.89) 06/03/2024 Non-seasonal allergic rhinitis, unspecified trigger (ICD-10 - J30.89) 12/19/2023 Acquired hypothyroidism (ICD-10 - E03.9) 01/20/2024 Non-seasonal allergic rhinitis, unspecified trigger (ICD-10 - J30.89) 06/15/2024 Acquired hypothyroidism (ICD-10 - E03.9) 08/05/2024 Non-seasonal allergic rhinitis, unspecified trigger (ICD-10 - J30.89) 06/03/2024 Benign paroxysmal positional vertigo, unspecified laterality (ICD-10 - H81.10) 12/19/2023 Non-seasonal allergic rhinitis, unspecified trigger (ICD-10 - J30.89) 06/15/2024 Non-seasonal allergic rhinitis, unspecified trigger (ICD-10 - J30.89) 08/05/2024 Benign paroxysmal positional vertigo, unspecified laterality (ICD-10 - H81.10) 06/15/2024 Benign paroxysmal positional vertigo, unspecified laterality (ICD-10 - H81.10) 08/05/2024 Stage 3a chronic kidney disease (ICD-10 - N18.31) 08/05/2024 Facial skin lesion (ICD-10 - L98.9) 08/05/2024 Seborrheic keratosis (ICD-10 - L82.1) 01/20/2024 Other This chart has been transcribed by a computerized dictation system. There are likely to be multiple research archaeologist inaccuracies despite chart review. 02/04/2024 Other This chart has been transcribed by a computerized dictation system. There are likely to be multiple research archaeologist inaccuracies despite chart review. 06/03/2024 Other This chart has been transcribed by a computerized dictation system. There are likely to be multiple research archaeologist inaccuracies despite chart review. 06/15/2024 Other This chart has been transcribed by a computerized dictation system. There are likely to be multiple research archaeologist inaccuracies despite chart review. 08/05/2024 Other This chart has been transcribed by a computerized dictation system. There are likely to be multiple research archaeologist inaccuracies despite chart review. 09/10/2024 Other This chart has been transcribed by a computerized dictation system. There are likely to be multiple research archaeologist inaccuracies despite chart review. 12/19/2023 Other This chart has been transcribed by a computerized dictation system. There are likely to be multiple research archaeologist inaccuracies despite chart review. 12/18/2023 Other This chart has been transcribed by a computerized dictation system. There are likely to be multiple research archaeologist inaccuracies despite chart review. 01/02/2024 Other This chart has been transcribed by a computerized dictation system. There are likely to be multiple research archaeologist inaccuracies despite chart review. 04/06/2024 Other This chart has been transcribed by a computerized dictation system. There are likely to be multiple research archaeologist inaccuracies despite chart review. 09/08/2024 Other This chart has been transcribed by a computerized dictation system. There are likely to be multiple research archaeologist inaccuracies despite chart review. 09/30/2024 Other This chart has been transcribed by a computerized dictation system. There are likely to be multiple research archaeologist inaccuracies despite chart review. 10/28/2024 Other This chart has been transcribed by a computerized dictation system. There are likely to be multiple research archaeologist inaccuracies despite chart review. PLAN OF TREATMENT Pending Test Test Name Order Date Ultrasound : Right Upper Quadrant 2023 X ray : Rib series, right 04/06/2024 MAMMOGRAM, SCREENING 09/17/2023 Ultrasound : Kidneys 09/17/2023 *EKG 12/19/2023 Hemoglobin [id number] 10/17/2023 Hepatic Function Panel ([id number])-[id number] 2023 Lipid Panel-[id number] 10/17/2023 Next Appt Details Provider Name:Joseph Burton Amy rose, 11/04/2024 10:45:00 AM, [address] [place], [address], Insurance Providers Payer Name Payer Address Payer Phone Subscriber Number Group Number Insured Name Patient Relationship to Insured Coverage Start Date Coverage End Date [employer] [address] [place] [address] [id number] Sylwia Correia Self - patient is the insured [facility] [address] [place] [address] [id number] Sylwia Correia Self - patient is the insured MEDICAL (GENERAL) HISTORY Surgical History Surgery Date(Month/Year) C-sections 6 Tuboplasty Diagnostic laparoscopy 3 Hip replacement rightr twice left once Surgery for complications of Crohn's dis ease Arthroscopic surgery left shoulder Hernia repair 2
--- OUTSIDE RECORDS SUMMARY | 2024-11-03 10:15 | XMS_ITS | Clinical Summary ---
Author Organization [facility] Address [address] [address] Phone Care Team Providers Care Grain Picker Name Role Phone Joseph Taylor MD Primary Care Provider [phone] Allergies No known active allergies Medications traMADol (ULTRAM) 50 MG tablet 1 tablet as needed Orally every 6 hrs partial fill upon request for 3 days 5 Active levothyroxine (SYNTHROID, LEVOTHROID) 50 MCG tablet Take 50 mcg by mouth 1 (one) time each day 5 Active triamterene-hyd roCHLOROthiazid e (MAXZIDE) 75-50 MG per tablet Take 1 tablet by mouth every morning 5 Active pantoprazole (PROTONIX) 40 MG EC tablet Take 40 mg by mouth in the morning and 40 mg in the evening. 5 Active amitriptyline (ELAVIL) 10 MG tablet 5 Active atorvastatin (LIPITOR) 80 MG tablet Take 80 mg by mouth 1 (one) time each day 5 Active oxyCODONE (ROXICODONE) 5 MG immediate release tablet TAKE 1 TABLET BY MOUTH EVERY 6 HOURS FOR 5 DAYS NEEDED FOR PAIN 5 Active Jardiance 25 MG tablet Take by mouth 1 (one) time each day 5 Active glimepiride (AMARYL) 1 MG tablet TAKE 1 TABLET BY MOUTH TWICE DAILY IN THE MORNING AND IN THE AFTERNOON Active carvedilol (COREG) 3.125 MG tablet Take 3.125 mg by mouth in the morning and 3.125 mg in the evening. Take with meals. Active metFORMIN (GLUCOPHAGE) 500 MG tablet 500 mg in the morning and 500 mg in the evening. Take with meals. Active Active Problems Problem Noted Date Diagnosed Date Stage 3a chronic kidney disease 09/28/2024 Neuropathy 07/21/2024 Strain of rotator cuff of shoulder 09/26/2012 Overview (09/28/2024): Status: 'A'; Encounters Date Type Department Care Team Description 09/29/2024 1:45 PM EDT Office Visit [facility] [address] [address] Josh Roberson MD Chronic kidney disease, stage 2 (mild) (Primary Dx) from Last 3 Months Social History Tobacco Use Types Packs/Day Years Used Date Smoking Tobacco: Former Cigarettes Smokeless Tobacco: Former Tobacco Cessation:Counseling Given: Yes Alcohol Use Standard Drinks/Week Comments Never 0 (1 standard drink = 0.6 oz pur e alcohol) Comments Unknown Sex and Gender Information Value Date Recorded Sex Assigned at Not on file Legal Sex Female 3:42 PM EDT Gender Identity Not on file Sexual Orientation Not on file Last Filed Vital Signs Vital Sign Reading Time Taken Comments Blood Pressure 128/74 09/29/2024 1:51 PM EDT Pulse 78 09/29/2024 1:51 PM EDT Temperature - - Respiratory Rate - - Oxygen Saturation 97% 09/29/2024 1:51 PM EDT Inhaled Oxygen Concentration - - Weight 95.8 kg (211 lb 3.2 oz) 09/29/2024 1:51 P M EDT Height - - Body Mass Index - - Plan of Treatment Health Maintenance Due Date Last Done Comments Breast Cancer Screening 1955 Pneumococcal Vaccine: 50+ Ye ars (1 of 2 - PCV) 1972 Colorectal Cancer Screening: Annual FOBT 2002 Colorectal Cancer Screening: Colonoscopy 2002 Colorectal Cancer Screening: Sigmoidoscopy 2002 Influenza Vaccine (#1) 2024 Hepatitis B Vaccine Aged Out No longe r eligible based on patient's age to complete this topic Procedures Procedure Name Priority Date/Time Associated Diagnosis Comments EXT RESULT ENTRY Routine 09/09/2024 from Last 3 Months Results * (ABNORMAL) EXT RESULT ENTRY (09/09/2024) WBC 7.9 3.3 - 10.0 10*3/ML Red Blood Cell Count 4.84 Hemoglobin 13.6 12.0 - 16.0 Hematocrit 42.4 36.0 - 46.0 Platelets 184 150 - 399 10*3/UL MCV 88.0 82.0 - 108.0 Neutrophils Absolute 4.60 1.30 - 8.30 10*3/UL Lymphocytes Absolute 2.70 1.40 - 2.90 10*3/UL Monocytes Absolute 0.50(A) 0.20 - 0.80 10*3/UL Eosinophils Absolute 0.10(A) 0.20 - 0.70 10*3/UL 09/09/2024 us Historical Provider LAB BLOOD ORDERABLES Odalis l Result from Last 3 Months Insurance Aetna MCR Adv PPO ([id number]) Medicaid [place] Care Teams Grain Picker Relationship Specialty Start Date End Date Joseph Taylor MD [address] [place] [address] PCP - General Internal Medicine 08/10/24
== END 2024-11-03 10:43 | disposition home or self-care (01) ==
PROVIDERS: PCP Internal Medicine; Visit Provider Physician Assistant Medical
DX: H81.93 Unspecified disorder of vestibular function, bilateral (principal); R42 Dizziness and giddiness; R68.89 Other general symptoms and signs; R51.9 Headache, unspecified
CPT/HCPCS: 99214

== ENCOUNTER 2024-11-16 13:35 | Outpatient (AMB) | payer MEDICARE, MEDICAID, SELFPAY ==
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
== END 2024-11-16 14:30 | disposition home or self-care (01) ==
LOC: HO.HSMS 13:36
PROVIDERS: PCP Internal Medicine; Visit Provider Physician Assistant Medical
DX: R51.9 Headache, unspecified (principal); R68.89 Other general symptoms and signs; H81.93 Unspecified disorder of vestibular function, bilateral
CPT/HCPCS: 99214

== ENCOUNTER 2024-11-19 14:36 | Outpatient (AMB) | payer MEDICARE, MEDICAID, SELFPAY ==
--- OUTSIDE RECORDS SUMMARY | 2024-11-10 11:01 | XMS_ITS ---
Author Organization [facility] Address [address] [place] [address] Care Team Providers Care Bond Clerk Name Role Phone Joseph Taylor Primary Care Provider REASON FOR VISIT Refills MEDICATIONS Medication SIG (Take, Route, Fr equency, Duration) Notes Start Date End Date Status Carvedilol 3.125 MG 1 tablet with food O rally Twice a day for 90 days Active Encounters Encounter Location Date Provider Diagnosis [facility] [address] [place] [address] 11/11/19 Joseph Taylor PLAN OF TREATMENT Medication Medication Name Sig Start Date Stop Date Notes Carvedilol 3.125 MG 1 tablet with food O rally Twice a day for 90 days Next Appt Details Provider Name:Joseph rose, 12/02/2024 10:45:00 AM, [address] [place] [address], [phone],
--- NOTE | 2024-11-19 14:40 | A.OFFVIS_ITS ---
Vital Signs 11/19/24 14:44 Height 5 ft 4 in Weight 210 lb 12.191 oz BMI 36.2 BP 110/72 Blood Pressure Location Lt brachial Position Sitting Pulse 78 Pulse Source Monitor Intake Visit Reasons: bmc dc fu Intake Note: bmc, kobi pressure, balance Cyber Engineer Required: No Accompanied by: Daughter Allergies clarithromycin (From BIAXIN) Allergy (Severe, Verified 11/03/24 09:42) FELT ILL acetaminophen (From TYLENOL) Allergy (Unknown, Verified 11/03/24 09:42) UPSET STOMACH albuterol Allergy (Unknown, Verified 11/03/24 09:42) Unknown codeine Allergy (Unknown, Verified 11/03/24 09:42) Unknown duloxetine (DULOXETINE) Allergy (Unknown, Verified 11/03/24 09:42) FEELS ILL naproxen (From ALEVE) Allergy (Unknown, Verified 11/03/24 09:42) FEELS ILL gabapentin Adverse Reaction (Severe, Verified 11/03/24 09:42) very, very sick Medication List - Last Reconciled 11/19/24 by Kunal Alatorre NP atorvastatin 80 mg PO DAILY 30 days Bacillus coagulans (Digestive Advantage Probiotic Gummy) cells PO blood pressure monitor daily As directed, 999days/lifetime blood sugar diagnostic (FreeStyle Lite Strips) test blood sugar two times a day carvedilol 3.125 mg PO BID 30 days cetirizine 10 mg PO DAILY PRN empagliflozin (Jardiance) 25 mg PO DAILY ezetimibe 10 mg PO DAILY fluticasone propionate 50 mcg/actuation 1 spray intranasal Q12H 30 days glimepiride 1 mg PO BID inhalational spacing device (Aerochamber MV spacer) As directed levalbuterol HCl 0.63 mg (3 mL) inhalation TID PRN 30 days levothyroxine 50 mcg PO DAILY 90 days loperamide mg PO meclizine 25 mg PO Q12H PRN gs-xi-rvoin-lutein-herbal 293 120 mcg-150 mcg -37.5 mg (Alive Women's 50 Plus Gummy) tabs PO nystatin 1 appl topical BID 1 month triamterene-hydrochlorothiazid 75-50 mg 1 tab PO DAILY 30 days walker (Ultra-Light Rollator misc) Rollator Walker with wheels, brakes and seat. Daily As directed. 999 days. HPI Comments Details: This is a 69-year-old female patient coming in for complaints of chest heaviness and shortness of breath, accompanied by her friend. Patient with a history of hyperlipidemia diabetes, COPD, and obesity. Patient states that she was recently in [facility] for a TIA where all of her imaging is were negative. Patient was planned for a myocardial perfusion study and an echo at that time which was never completed. Today, patient states that for the past few weeks, patient has been having some chest heaviness which is random in nature and notices most when she is just lying down. Patient was previously seen in the office 2 years ago for NSVT on carvedilol. Patient reports that now she is having some breakthrough palpitations on the current dose of carvedilol and she notices this mostly at nighttime. Patient is otherwise denying any exertional shortness of breath, dizziness, orthopnea, PND, leg edema, presyncope, or syncope. PFS Medical History Distal paresthesia Pulmonary nodule Bronchitis with airway obstruction Sciatica Neuropathy Arthritis High blood pressure Low TSH level Vertigo Surgical History History of shoulder surgery History of plastic surgery History of hip replacement History of delivery Family History Maternal Grandmother Stomach cancer Maternal Grandfather Colon cancer Mother Dementia Hypertension Diabetes Father Parkinsons Diabetes Sister Fatty liver Sister Parkinsons Diabetes Daughter Diabetes Hypertension Lupus Anxiety Depression Son Myocardial infarction Other Mental health disorder Social History Household Members Other:: Now living in an apartment Housing: Apartment Alcohol intake: former Patient Tobacco Use Status: Former Tobacco user e-Cigarette/Vaping Use: Never Used Second Hand Smoke Exposure: No service: No Current occupational status: disabled Current occupational exposures/hazards: No Cognitive needs: No Hearing needs: No Vision needs: No Review of Systems Const Denies chills, Denies fatigue, Denies fever(s), Denies frequent falls, Denies weakness, Denies weight gain and Denies weight loss ENT Denies dizziness Card Denies chest pain, Denies leg edema, Denies lightheadedness, Denies palpitations, Denies dyspnea and Denies dyspnea on exertion Resp Denies cough, Denies dyspnea and Denies dyspnea on exertion GI Denies hematochezia Musc Denies abnormal gait, Denies muscle weakness, Denies numbness, Denies radiating pain into limb and Denies tingling Neuro Denies abnormal gait, Denies dizziness, Denies frequent falls, Denies numbness, Denies tingling and Denies weakness Endo Denies fatigue and Denies palpitations Physical Exam Vital Signs: Last Vital Signs Pulse 78 11/19/24 14:44 BP 110/72 11/19/24 14:44 BMI result Body Mass Index 36.2 Const General: cooperative, healthy appearing, comfortable and no acute distress Orientation/consciousness: patient oriented x3 HEENT Head: Yes normal to inspection Neck Neck: Yes normal visual inspection, Yes trachea midline and Yes supple Chest Chest palpation & inspection: normal inspection of the chest Resp Effort & Inspection: normal respiratory effort Auscultation: clear to auscultation bilaterally, no crackles, no rales, no rhonchi and no wheezes Cardio Jugular venous distension: no JVD Palpation: normal PMI Rate: regular rate Rhythm: regular rhythm Heart sounds: S1 normal heart sound present, S2 normal heart sound present, no click, no gallops, no murmurs and no rubs Peripheral pulses: Peripheral pulses 2+ throughout GI Inspection: Yes normal to inspection Palpation (GI): Soft to palpation Auscultation: normal bowel sounds Skin General skin exam: no rashes or lesions noted Neuro General: patient oriented x3 Extrem General: Yes normal to inspection, No no pedal edema and No calf tenderness Psych Appearance: grossly normal Mental Status: mental status grossly normal Speech and movement: Normal speech and movement present Office Procedures EKG Details: EKG today showed normal sinus rhythm, 78 beats per minute, nonspecific STT wave abnormalities, [place], [place] [id number], Complete Assessment & Plan Assessment & Plan (1) Chest pain: Code(s): R07.9 - Chest pain, unspecified Category: Medical Plan: 11/05/2024-patient underwent an echo study at [facility] during her hospital admission that showed normal LV systolic function with an ejection fraction between 65-70%, mildly increased LV wall thickness, with no focal wall motion abnormalities or significant valvular disease. Given patient's reported chest pain and her multiple risk factors, patient will undergo a myocardial perfusion study with pharmacologic agent. Patient walks with a walker at baseline and will be unable to walk on the treadmill. Further treatment based on findings. Continue high-dose statin and Zetia therapy with an LDL goal less than 70. No recent lipid profile. Patient states she has some upcoming fasting labs with her PCP. Patient will request labs to be faxed over went on. (2) NSVT (nonsustained ventricular tachycardia): Code(s): I47.29 - Other ventricular tachycardia Category: Medical Plan: History of NSVT on carvedilol. Holter from 03/06/2022 showed baseline normal sinus rhythm with rare PACs with a burden of 0.06%, and PVCs with a burden of 0.2%. Patient is reporting breakthrough palpitations and we will repeat a Holter study. (3) Heart palpitations: Code(s): R00.2 - Palpitations Category: Medical Plan: As above. (4) Hyperlipidemia: Code(s): E78.5 - Hyperlipidemia, unspecified Category: Medical Plan: As above. (5) Diabetes type 2, controlled: Code(s): E11.9 - Type 2 diabetes mellitus without complications Category: Medical Plan: Continue aggressive diabetes management with an A1c goal less than 7%. (6) Obesity (BMI 30-39.9): Code(s): E66.9 - Obesity, unspecified Category: Medical Plan: Advised heart healthy diet, regular exercise, weight loss, med compliance, and aggressive management of vascular risk factors. Follow up after completion of the test. In the interim, patient will call the office with any concerns or change in symptoms. Advised to seek ER care in case of exertional chest pain not resolved rest. This note was generated using voice recognition software. While every effort has been made to ensure accuracy and proper instrument worker, there may be occasional errors that could affect the content or meaning of the described symptoms. Orders: Orders CA lexiscan stress w randolph 11/19/24 R07.9 - Chest pain, unspecified AMB EKG-In Office 11/19/24 R07.9 - Chest pain, unspecified NM cardiolite stress test 11/19/24 R07.9 - Chest pain, unspecified ECG 3 day holter monitor 11/19/24 R00.2 - Palpitations Coding Level of Care Code Est Pt Level 4 (34643) Complex EM visit Add On G2211 Diagnoses Chest pain R07.9 NSVT (nonsustained ventricular tachycardia) I47.29 Heart palpitations R00.2 Hyperlipidemia E78.5 Diabetes type 2, controlled E11.9 Obesity (BMI 30-39.9) E66.9 CPT Codes EKG - CPT: 39333-[id number], Complete ([id number]) Time Spent (min) 32 Comment Time spent in reviewing the chart, test results, assessment, counseling and documentation.
[2024-11-19 14:44] VITALS: BP 110/72; PULSE 78; BMI 36.2
--- OUTSIDE RECORDS SUMMARY | 2024-11-19 15:15 | XMS_ITS | Clinical Summary ---
Author Organization [facility] Address [address] [id number] Phone Care Team Providers Care Fitness Specialist Name Role Phone Joseph Taylor MD Primary Care Provider [phone] Allergies No known active allergies Medications traMADol [...] Office Visit [facility] [address] [id number] Josh Roberson MD Chronic kidney disease, stage [...] 3 Months Insurance [employer] MCR Adv PPO ([id number]) Medicaid [place] Care Teams Fitness Specialist Relationship Specialty Start Date End Date Joseph Taylor MD [address] [place] [address] PCP - General Internal Medicine 08/10/24
--- OUTSIDE RECORDS SUMMARY | 2024-11-19 15:15 | XMS_ITS | Patient Health Record ---
Author Organization Brandon Yuen Address [address] [place] [address] Care Team Providers Care Billet Shearer Name Role Phone [facility] Joseph Primary Care Provider Ninoska Lewis Unavailable [phone] ALLERGIES Allergen (clinical drug ingredient) Drug/Non Drug [...] pantoprazole Pantoprazole Unknown Drug Allergy A ctive RESULTS Component Value Reference Range Notes Hemoglobin [id number] Reviewed date:01/22/2024 07:08:27 AM Interpretation: Performing Lab:[facility], [address] [facility], Phone - [phone], Director - Ralphdrkelli Notes/Report: Hemoglobin A1c 8.7 4.8-5.6 % . Prediabetes: 5.7 - 6.4 Diabetes: >6.4 Glycemic control for adults with diabetes: <7.0 TSH+Free [id number] Reviewed date:01/22/2024 07:08:27 AM Interpretation: Performing Lab:[facility], [address] [facility], Phone - [phone], Director - MDJodry Notes/Report: TSH 3.690 0.450-4.500 uIU/mL T4,Free(Direct) 1.19 0.82-1.77 ng/dL Lipid Panel-[id number] Reviewed date:01/22/2024 07:08:27 AM Interpretation: Performing Lab:[facility], [address] [place] [address], Phone - [phone], Director - Ethany Notes/Report: Cholesterol, Total 254 100-199 mg/dL Triglycerides 251 0-149 mg/dL HDL Cholesterol 40 >39 mg/dL VLDL Cholesterol Jeff 47 5-40 mg/dL LDL Chol Calc ([facility]) 167 0-99 mg/dL LDL Calc Comment: Comp. Metabolic Panel (13)-[id number] Reviewed date:01/22/2024 07:08:27 AM Interpretation: Performing Lab:[facility], [address] [facility], Phone - [phone], Director - MDSarathy Notes/Report: Glucose 145 70-99 mg/dL BUN 25 [...] IU/L AST (SGOT) 41 0-40 IU/L Hemoglobin [id number]-[id number] Reviewed date:06/05/2024 07:06:08 AM Interpretation: Performing Lab:[facility], [address] [facility], Phone - [phone], Director - Ethany Notes/Report: Hemoglobin A1c 7.2 4.8-5.6 % . Prediabetes: 5.7 - 6.4 Diabetes: >6.4 Glycemic control for adults with diabetes: <7.0 Lipid Panel-[id number] Reviewed date:06/05/2024 07:06:08 AM Interpretation: Performing Lab:[facility], [address] [place] [address], Phone - [phone], Director - Sohan Notes/Report: Cholesterol, Total 219 100-199 mg/dL Triglycerides 382 0-149 mg/dL HDL Cholesterol 33 >39 mg/dL VLDL Cholesterol Jeff 67 5-40 mg/dL LDL Chol Calc ([facility]) 119 0-99 mg/dL LDL Calc Comment: Comp. Metabolic Panel (13)-[id number] Reviewed date:06/05/2024 07:06:08 AM Interpretation: Performing Lab:[facility], [address] [facility], Phone - [phone], Director - MDJodry Notes/Report: Glucose 109 70-99 [...] IU/L AST (SGOT) 34 0-40 IU/L Hemoglobin [id number] Reviewed date:11/03/2024 08:32:21 AM Interpretation: Performing Lab:[facility], [address] [facility], Phone - [phone], Director - MDJodry Notes/Report: Hemoglobin A1c 7.9 4.8-5.6 % . Prediabetes: 5.7 - 6.4 Diabetes: >6.4 Glycemic control for adults with diabetes: <7.0 TSH+Free [id number] Reviewed date:11/03/2024 08:32:21 AM Interpretation: Performing Lab:[facility] [place], [address] [facility], Phone - [phone], Director - MDJodry Notes/Report: TSH 8.660 0.450-4.500 uIU/mL T4,Free(Direct) 1.01 0.82-1.77 ng/dL Lipid Panel-[id number] Reviewed date:11/03/2024 08:32:21 AM Interpretation: Performing Lab:[facility], [address] [facility], Phone - [phone], Director - Sohan Notes/Report: Cholesterol, Total 173 100-199 mg/dL Triglycerides 215 0-149 mg/dL HDL Cholesterol 43 >39 mg/dL VLDL Cholesterol Jeff 37 5-40 mg/dL LDL Chol Calc ([facility]) 93 0-99 mg/dL LDL Calc Comment: Comp. Metabolic Panel (13)-[id number] Reviewed date:11/03/2024 08:32:21 AM Interpretation: Performing Lab:[facility], [address] [facility], [place], Phone - [phone], Director - Sohan Notes/Report: Glucose 137 70-99 [...] 44-121 IU/L AST (SGOT) 21 0-40 IU/L [id number] Reviewed date:11/03/2024 08:32:21 AM Interpretation: Performing Lab:[facility], [address] [facility], Phone - [phone], Director - Sohan Notes/Report: NT-proBNP 69 0-301 [...] HF) Age independent 300 pg/mL Sedimentation Rate-Davionre n-[id number] Reviewed date:09/09/2024 02:01:30 PM Interpretation: Performing Lab:[facility], [address] [facility], Phone - [phone], Director - Sohan Notes/Report: Sedimentation Rate-Alkeithren 21 0-40 mm/hr Lyme Disease Serology w/Refl ex-[id number] Reviewed date:09/09/2024 02:01:30 PM Interpretation: Performing Lab:[facility], [address] [place] [address], [place], Phone - [phone], Director - Sohan Notes/Report: Lyme Total Antibody [...] is recommended. CBC with Diff, Platelet, NLR -[id number] Reviewed date:09/09/2024 02:01:30 PM Interpretation: Performing Lab:[facility] [place], [address] [place] [address], [place], Phone - [phone], Director - Sohan Notes/Report: WBC 7.9 3.4-10.8 [...] Notes Renal and Transplant , , F: [phone] Referral Priority Routine Referral Appointment Date 09/29/2024 Reason 30 minute procedure: Excision biopsy of skin lesion left side of the face Diagnosis 1 Facial skin lesion ( L98.9) Referral Organization [facility] Referring Provider First Name Joseph Referring Provider Last Name Brandon Referring Provider Speciality Internal edicine Referred Provider Specialty Other Medica l Care General Notes Purvi Eli 04/2024 10:55:13 AM EDT > patient aware of the procedure Referral Priority Routine MEDICATIONS Medication SIG (Take, Route, Frequency, Duration) Notes Start Date End Date Status Fluticasone Propionate 50 MCG/ACT 1 spray in each nostril Nasally Once a day for 30 days Active Voquezna 10 MG 1 tablet Orally Once a day for 30 day(s) 11/04/2024 Active Atorvastatin Calcium 80 MG 1 tablet Orally Once a day for 90 Days Active Carvedilol 3.125 MG TAKE 1 TABLET BY MOUTH TWICE DAILY WITH FOOD for 90 Active Ezetimibe 10 MG 1 tablet Orally Once a day for 90 Days Active Nystatin 944684 UNIT/GM 1 application Externally Twice a day for 30 days 01/03/2024 Not-Taking Loperamide HCl 2 MG TAKE 1 CAPSULE BY MOUTH EVERY 4 HOURS NEEDED FOR LOOSE STOOLS Oral for 60 Not-Taking Otezla 10 & 20 & 30 MG as directed Orall y Twice a day 09/30/2024 Not-Taking Famotidine 40 MG 1 tablet Orally Once a day for 30 day(s) Not-Taking Atorvastatin Calcium 80 MG TAKE 1 TABLET BY MOUTH DAILY for 90 Active Pantoprazole Sodium 40 MG Oral for 90 Not-Taking metFORMIN HCl 500 MG 1 tablet with a meal Orally Twice a day for 90 Days Not-Taking Ezetimibe 10 MG TAKE 1 TABLET BY MOUTH DAILY for 90 Active Loratadine 10 MG 1 tablet Orally Once a day for 90 Days Active Levothyroxine Sodium 50 MCG TAKE 1 TABLET BY MOUTH DAILY Oral Active Glimepiride 1 MG TAKE 1 TABLET BY MOUTH TWICE DAILY IN THE MORNING AND IN THE AFTERNOON for 90 Active Jardiance 25 MG TAKE 1 TABLET BY MOUTH DAILY for 90 Active Levothyroxine Sodium 50 MCG TAKE 1 TABLET BY MOUTH DAILY for 90 Active Clobetasol Propionate 0.05 % 1 application Externally Twice a day for 30 days 09/08/2024 Active Triamcinolone Acetonide 0.1 % 1 application Externally Twice a day 01/03/2024 Not-Taking Triamterene-HCTZ 75-50 MG TAKE 1 TABLET BY MOUTH DAILY IN THE MORNING for 90 Active Lidoderm 5 % 1 patch remove after 12 hours Externally Once a day for 10 days 04/06/2024 Not-Taking Meclizine HCl 25 MG 1 tablet as needed Orally every 12 hrs for 14 days Not-Taking Triamterene-HCTZ 75-50 MG TAKE 1 TABLET BY MOUTH DAILY Oral I10,Unavailab le Active Glimepiride 1 MG 1 tablet in the morning and afternoon Orally Twice a day for 90 Days Active Losartan Potassium 50 MG TAKE 1 TABLET BY MOUTH DAILY Orally Active Jardiance 25 MG 1 tablet Orally Once a day for 90 Days Active Amitriptyline HCl 25 MG TAKE 1 TABLET BY MOUTH AT BEDTIME Oral Active traMADol HCl 50 MG 1 tablet as needed Orally every 6 hrs partial fill upon request for 5 days 04/06/2024 Not-Taking IMMUNIZATIONS Vaccine Route Administration Date Status Comme nts *Influenza (Fluarix Quad) IM Intramuscular 01/02/2024 Admi nistered PROBLEMS Problem Type ICD Code Onset Dates Problem Status W/U Status Risk SNOMED Code Notes Problem Postmenopausal bleeding (N95.0) Active confirmed 72011723 Problem Mixed hyperlipidemia (E78.2) Active confirmed 459980047 Problem Essential hypertension (I10) Active confirmed 06491330 Problem Acquired hypothyroidism (E03.9) Active confirmed 709022496 Problem Plaque psoriasis (L40.0) Active confirmed 101116425 Problem Type 2 diabetes mellitus without complication, without long-term current use of insulin (E11.9) Active confirmed 899661583 Problem Non-seasonal allergic rhinitis, unspecified trigger (J30.89) Active confirmed 79234136 Problem GERD without esophagitis (K21.9) Active confirmed 865834774 Problem Stage 3a chronic kidney disease (N18.31) Active confirmed 940899082 Problem Acute intractable tension-type headache (G44.201) Active confirmed 778223933 VITAL SIGNS Heart Rate 80 /min 11/04/2024 pt refused to b e weighed Blood pressure diastolic 70 mm Hg 11/04/2024 pt refused to be weighed Height 64 in 11/04/2024 pt refused to b e weighed Blood pressure systolic 102 mm Hg 11/04/2024 pt r efused to be weighed Weight 212.6 lbs 09/30/2024 BMI 36.49 kg/m2 09/30/2024 PROCEDURES Procedure Date Ordered Date Performed Result Body Sit e *EKG 12/19/2023 N/A Encounters Encounter Location Date Provider Diagnosis [address] [address] 12/18/2023 Joseph Taylor Pain, dental K08.89 and Type 2 diabetes mellitus without complication, without long-term current use of insulin E11.[address] [address] 12/18/2023 Joseph Taylor [address] [address] 12/19/2023 Joseph Taylor Essential hypertensi on I10 ; Preop exam for internal medicine Z01.818 ; Type 2 diabetes mellitus without complication, without long-term current use of insulin E11.9 ; Mixed hyperlipidemia E78.2 ; Acquired hypothyroidism E03.9 and Non-seasonal allergic rhinitis, unspecified trigger J30.89 [facility] [address] [address] 01/02/2024 Joseph Taylor Encounter for immunization Z23 and Cutaneous candidiasis B37.2 [facility] [place] [address] [address] 01/03/2024 Joseph Taylor Cutaneous candidiasi s B37.2 [facility] [place] [address] [address] 01/09/2024 Joseph Taylor Essential hypertensi on I10 [facility] [address] [address] 01/20/2024 Joseph Taylor Essential hypertensi on I10 ; Type 2 diabetes mellitus without complication, without long-term current use of insulin E11.9 ; Mixed hyperlipidemia E78.2 ; Acquired hypothyroidism E03.9 and Non-seasonal allergic rhinitis, unspecified trigger J30.89 [facility] [address] [address] 02/04/2024 Joseph Taylor [facility], [address] [address] 02/04/2024 Joseph Taylor Essential hypertensi on I10 ; Type 2 diabetes mellitus without complication, without long-term current use of insulin E11.9 ; Mixed hyperlipidemia E78.2 ; Acquired hypothyroidism E03.9 and Non-seasonal allergic rhinitis, unspecified trigger J30.89 [facility] [place] [address] [address] 02/13/2024 Joseph Taylor [facility], [address] [address] 04/06/2024 Joseph Taylor Rib pain on right si de R07.81 [facility] [place] [address] [address] 05/06/2024 Joseph Taylor [facility], [address] [address] 05/20/2024 Joseph Taylor [facility], [address] [address] 05/21/2024 Joseph Taylor [facility], [address] [address] 06/01/2024 Joseph Taylor [facility], [address] 06/03/2024 Joseph Taylor Essential hypertensi on I10 ; Type 2 diabetes mellitus without complication, without long-term current use of insulin E11.9 ; Mixed hyperlipidemia E78.2 ; Acquired hypothyroidism E03.9 ; Non-seasonal allergic rhinitis, unspecified trigger J30.89 and Benign paroxysmal positional vertigo, unspecified laterality H81.[address] [address] 06/15/2024 Joseph Taylor Essential hypertensi on I10 ; Type 2 diabetes mellitus without complication, without long-term current use of insulin E11.9 ; Mixed hyperlipidemia E78.2 ; Acquired hypothyroidism E03.9 ; Non-seasonal allergic rhinitis, unspecified trigger J30.89 and Benign paroxysmal positional vertigo, unspecified laterality H81.[address] [address] 08/05/2024 Joseph Taylor Essential hypertensi on I10 ; Type 2 diabetes mellitus without complication, without long-term current use of insulin E11.9 ; Mixed hyperlipidemia E78.2 ; Acquired hypothyroidism E03.9 ; Non-seasonal allergic rhinitis, unspecified trigger J30.89 ; Benign paroxysmal positional vertigo, unspecified laterality H81.10 ; Stage 3a chronic kidney disease N18.31 ; Facial skin lesion L98.9 and Seborrheic keratosis L82.[address] [address] 09/01/[address] [address] 09/08/2024 Joseph Taylor Plaque psoriasis L40 .[address] 09/10/2024 Joseph Taylor Acute abdomen R10.0 and Postmenopausal bleeding N95.[address] [address] 09/11/2024 [facility] [address] [address] 09/11/2024 Joseph mary kay [address] [address] 09/30/2024 Joseph Taylor Plaque psoriasis L40 .0 and Pruritus L29.9 [facility], [address] [address] 10/28/[address] [address] 11/04/2024 Joseph mary kay GERD without esophag itis K21.9 ; Acute intractable tension-type headache G44.201 ; Essential hypertension I10 ; Type 2 diabetes mellitus without complication, without long-term current use of insulin E11.9 ; Mixed hyperlipidemia E78.2 ; Acquired hypothyroidism E03.9 and Non-seasonal allergic rhinitis, unspecified trigger J30.89 [facility] [address] [address] 11/04/2024 Ninoska Lewis [address] [address] 11/10/[address] [address] 11/10/2024 Joseph Stephanmary kay ASSESSMENTS Encounter Date Diagnosis Assessment Notes Treatment Notes Treatment Clinical Notes Section Notes 09/30/2024 Plaque psoriasis (ICD-10 - L40.0) 09/30/2024 Pruritus (ICD-10 - L29.9) 09/10/2024 Acute abdomen (ICD-10 - R10.0) Patient was advised to go to emergency room immediately to rule out appendicitis. 09/10/2024 Postmenopausal bleeding (ICD-10 - N95.0) Patient explained that she needs to see her child protective services specialist for endometrial biopsy to rule out uterine cancer. 09/08/2024 Plaque psoriasis (ICD-10 - L40.0) 11/04/2024 Acute intractable tension-type headache (ICD-10 - G44.201) Multiple treatment options discussed with patient but she refused. 11/04/2024 GERD without esophagitis (ICD-10 - K21.9) 08/05/2024 Type 2 diabetes mellitus without complication, without long-term current use of insulin (ICD-10 - E11.9) 08/05/2024 Essential hypertension (ICD-10 - I10) 06/15/2024 Essential hypertension (ICD-10 - I10) 01/20/2024 Essential hypertension (ICD-10 - I10) 04/06/2024 Rib [...] to fill the prescription in lesser amount. [facility] verified. 01/20/2024 Type 2 diabetes mellitus without complication, without long-term current use of insulin (ICD-10 - E11.9) 06/03/2024 Type 2 diabetes mellitus without complication, without long-term current use of insulin (ICD-10 - E11.9) 12/19/2023 Preop exam for internal medicine (ICD-10 - Z01.818) EKG normal sinus rhythm no acute ischemic changes. Patient is clear for proposed surgery. 06/03/2024 Essential hypertension (ICD-10 - I10) 12/19/2023 Essential hypertension (ICD-10 - I10) 02/04/2024 Type 2 diabetes mellitus without complication, without long-term current use of insulin (ICD-10 - E11.9) 02/04/2024 Essential hypertension (ICD-10 - I10) 12/18/2023 Type 2 diabetes mellitus without complication, without long-term current use of insulin (ICD-10 - E11.9) 12/18/2023 Pain, dental (ICD-10 - K08.89) In [...] to fill the prescription in lesser amount. [facility] verified. 01/02/2024 Encounter for immunization (ICD-10 - Z23) 01/02/2024 Cutaneous candidiasis (ICD-10 - B37.2) 01/03/2024 Cutaneous candidiasis (ICD-10 - B37.2) 01/09/2024 Essential hypertension (ICD-10 - I10) 11/04/2024 Essential hypertension (ICD-10 - I10) 08/05/2024 Mixed hyperlipidemia (ICD-10 - E78.2) 06/15/2024 Type 2 diabetes mellitus without complication, without long-term current use of insulin (ICD-10 - E11.9) 06/03/2024 Mixed hyperlipidemia (ICD-10 - E78.2) 02/04/2024 Mixed hyperlipidemia (ICD-10 - E78.2) 12/19/2023 Type 2 diabetes mellitus without complication, without long-term current use of insulin (ICD-10 - E11.9) 01/20/2024 Mixed hyperlipidemia (ICD-10 - E78.2) 02/04/2024 Acquired hypothyroidism (ICD-10 - E03.9) 12/19/2023 Mixed hyperlipidemia (ICD-10 - E78.2) 06/03/2024 Acquired hypothyroidism (ICD-10 - E03.9) 01/20/2024 Acquired hypothyroidism (ICD-10 - E03.9) 06/15/2024 Mixed hyperlipidemia (ICD-10 - E78.2) 08/05/2024 Acquired hypothyroidism (ICD-10 - E03.9) 11/04/2024 Type 2 diabetes mellitus without complication, without long-term current use of insulin (ICD-10 - E11.9) 02/04/2024 Non-seasonal allergic rhinitis, unspecified trigger (ICD-10 - J30.89) 12/19/2023 Acquired hypothyroidism (ICD-10 - E03.9) 01/20/2024 Non-seasonal allergic rhinitis, unspecified trigger (ICD-10 - J30.89) 06/03/2024 Non-seasonal allergic rhinitis, unspecified trigger (ICD-10 - J30.89) 06/15/2024 Acquired hypothyroidism (ICD-10 - E03.9) 08/05/2024 Non-seasonal allergic rhinitis, unspecified trigger (ICD-10 - J30.89) 11/04/2024 Mixed hyperlipidemia (ICD-10 - E78.2) 12/19/2023 Non-seasonal allergic rhinitis, unspecified trigger (ICD-10 - J30.89) 06/03/2024 Benign paroxysmal positional vertigo, unspecified laterality (ICD-10 - H81.10) 06/15/2024 Non-seasonal allergic rhinitis, unspecified trigger (ICD-10 - J30.89) 08/05/2024 Benign paroxysmal positional vertigo, unspecified laterality (ICD-10 - H81.10) 11/04/2024 Acquired hypothyroidism (ICD-10 - E03.9) 06/15/2024 Benign paroxysmal positional vertigo, unspecified laterality (ICD-10 - H81.10) 08/05/2024 Stage 3a chronic kidney disease (ICD-10 - N18.31) 11/04/2024 Non-seasonal allergic rhinitis, unspecified trigger (ICD-10 - J30.89) 08/05/2024 Facial skin lesion (ICD-10 - L98.9) 08/05/2024 Seborrheic keratosis (ICD-10 - L82.1) 11/04/2024 Other This chart has been transcribed by a computerized dictation system. There are likely to be multiple gang saw operator inaccuracies despite chart review. 01/20/2024 Other This chart has been transcribed by a computerized dictation system. There are likely to be multiple gang saw operator inaccuracies despite chart review. 02/04/2024 Other This chart has been transcribed by a computerized dictation system. There are likely to be multiple gang saw operator inaccuracies despite chart review. 06/03/2024 Other This chart has been transcribed by a computerized dictation system. There are likely to be multiple gang saw operator inaccuracies despite chart review. 06/15/2024 Other This chart has been transcribed by a computerized dictation system. There are likely to be multiple gang saw operator inaccuracies despite chart review. 08/05/2024 Other This chart has been transcribed by a computerized dictation system. There are likely to be multiple gang saw operator inaccuracies despite chart review. 09/10/2024 Other This chart has been transcribed by a computerized dictation system. There are likely to be multiple gang saw operator inaccuracies despite chart review. 12/19/2023 Other This chart has been transcribed by a computerized dictation system. There are likely to be multiple gang saw operator inaccuracies despite chart review. 12/18/2023 Other This chart has been transcribed by a computerized dictation system. There are likely to be multiple gang saw operator inaccuracies despite chart review. 01/02/2024 Other This chart has been transcribed by a computerized dictation system. There are likely to be multiple gang saw operator inaccuracies despite chart review. 04/06/2024 Other This chart has been transcribed by a computerized dictation system. There are likely to be multiple gang saw operator inaccuracies despite chart review. 09/08/2024 Other This chart has been transcribed by a computerized dictation system. There are likely to be multiple gang saw operator inaccuracies despite chart review. 09/30/2024 Other This chart has been transcribed by a computerized dictation system. There are likely to be multiple gang saw operator inaccuracies despite chart review. 10/28/2024 Other This chart has been transcribed by a computerized dictation system. There are likely to be multiple gang saw operator inaccuracies despite chart review. PLAN OF TREATMENT Pending Test Test Name Order Date Ultrasound : Right Upper Quadrant 2023 X ray : Rib series, right 04/06/2024 MAMMOGRAM, SCREENING 09/17/2023 Ultrasound : Kidneys 09/17/2023 *EKG 12/19/2023 Hemoglobin [id number] 10/17/2023 Hepatic Function Panel ([id number] 2023 Lipid Panel-[id number] 10/17/2023 Next Appt Details Provider Name:Joseph Burton Amy rose, 12/02/2024 10:45:00 AM, [address] [place], [address], Insurance Providers Payer Name Payer Address Payer Phone Subscriber Number Group Number Insured Name Patient Relationship to Insured Coverage Start Date Coverage End Date [employer] [address] [place] [address] [id number] Sylwia Correia Self - patient is the insured [facility] [address] [place] [address] [id number] Sylwia Correia Self - patient is the insured MEDICAL (GENERAL) HISTORY Medical History History ICD Code Essential hypertension I10 Mixed hyperlipidemia E78.2 Acquired hypothyroidism E03.9 Type 2 diabetes mellitus wit hout complication, without long-term current use of insulin E11.9 Stage 3a chronic kidney disease N18.31 Plaque psoriasis L40.0 GERD without esophagitis K21.9 Postmenopausal bleeding N95.0 Surgical History Surgery Date(Month/Year) C-sections 6 Tuboplasty Diagnostic laparoscopy 3 Hip replacement rightr twice left once Surgery for complications of Crohn's dis ease Arthroscopic surgery left shoulder Hernia repair 2
== END 2024-11-19 15:23 | disposition home or self-care (01) ==
LOC: HO.HCS 14:37
PROVIDERS: PCP Internal Medicine
DX: R07.9 Chest pain, unspecified (principal); I47.29 Other ventricular tachycardia; R00.2 Palpitations; E78.5 Hyperlipidemia, unspecified; E11.9 Type 2 diabetes mellitus without complications; E66.9 Obesity, unspecified
CPT/HCPCS: 99214; G2211

== ENCOUNTER → 2024-11-19 14:36 | Outpatient (BNVA) | payer MEDICARE, MEDICAID, SELFPAY | PROVIDERS: PCP Internal Medicine | DX: R00.2 Palpitations (principal); I47.29 Other ventricular tachycardia; R07.9 Chest pain, unspecified; E78.5 Hyperlipidemia, unspecified; E11.9 Type 2 diabetes mellitus without complications; E66.9 Obesity, unspecified | CPT/HCPCS: 93005; 99212 ==

== ENCOUNTER → 2025-01-07 09:42 | Outpatient (REF) | payer MEDICARE, MEDICAID, SELFPAY ==
--- OUTSIDE RECORDS SUMMARY | 2024-11-10 11:05 | XMS_ITS ---
Author Organization [facility], Address [address] [place] [address] Care Team Providers Care Seafood Processor Name Role Phone Joseph Taylor Primary Care Provider REASON FOR VISIT FYI Encounters Encounter Location Date Provider Diagnosis [facility] [address] [place] [address] 11/11/19 Joseph Taylor PLAN OF TREATMENT Next Appt Details Provider Name:Joseph rose, 02/24/2025 01:45:00 PM, [address] [place] [address], [phone],
--- OUTSIDE RECORDS SUMMARY | 2024-11-24 07:36 | XMS_ITS ---
Author Organization Brandon Yuen, Address [address] [place] [address] Care Team Providers Care Youth Nutritional Monitor Name Role Phone Joseph Taylor Primary Care Provider REASON FOR VISIT Message Encounters Encounter Location Date Provider Diagnosis Brandon Yuen [address] [place] [address] 11/25/19 Joseph Taylor PLAN OF TREATMENT Next Appt Details Provider Name:Joseph rose, 02/24/2025 01:45:00 PM, [address] [place] [address], [phone],
--- OUTSIDE RECORDS SUMMARY | 2024-12-02 06:45 | XMS_ITS ---
Author Organization [facility], Address [address] [place] [address] Care Team Providers Care Track Patrol Name Role Phone AmyJoseph rose Primary Care [...] ctive REASON FOR VISIT (IN OFFICE), Follow Up MEDICATIONS Medication SIG (Take, Route, Frequency, Duration) Notes Start Date End Date Status Glimepiride 1 MG 1 tablet in the morning and afternoon Orally Twice a day for 90 Days Active Triamterene-HCTZ 75-50 MG TAKE 1 TABLET BY MOUTH DAILY Oral I10,Unavailabl e Active Losartan Potassium 50 MG TAKE 1 TABLET BY MOUTH DAILY Orally Active Amitriptyline HCl 25 MG TAKE 1 TABLET BY MOUTH AT BEDTIME Oral Active Carvedilol 3.125 MG TAKE 1 TABLET BY MOUTH TWICE DAILY Oral Active Atorvastatin Calcium 80 MG 1 tablet Orally Once a day for 90 Days Active Ezetimibe 10 MG 1 tablet Orally Once a day for 90 Days Active Jardiance 25 MG 1 tablet Orally Once a day for 90 Days Active Jardiance 25 MG TAKE 1 TABLET BY MOUTH DAILY for 90 Active Carvedilol 3.125 MG TAKE 1 TABLET BY MOUTH TWICE DAILY WITH FOOD for 90 Active Triamterene-HCTZ 75-50 MG TAKE 1 TABLET BY MOUTH DAILY IN THE MORNING for 90 Active Levothyroxine Sodium 50 MCG TAKE 1 TABLET BY MOUTH DAILY for 90 Active Levothyroxine Sodium 50 MCG TAKE 1 TABLET BY MOUTH DAILY Oral Active Loratadine 10 MG 1 tablet Orally Once a day for 90 Days Active Fluticasone Propionate 50 MCG/ACT 1 spray in each nostril Nasally Once a day for 30 days Active Clobetasol Propionate 0.05 % 1 application Externally Twice a day for 30 days 09/08/2024 Active VITAL SIGNS Blood pressure systolic 110 mm Hg 12/03/19 25 Blood pressure diastolic 70 mm Hg 025 Heart Rate 72 /min 12/02/2024 Height 64 in 12/02/2024 Weight 210.8 lbs 12/02/2024 BMI 36.18 kg/m2 12/02/2024 Encounters Encounter Location Date Provider Diagnosis mary kay [address] [address] 12/02/2024 Joseph Taylor GERD without esophag itis K21.9 ; Acute intractable tension-type headache G44.201 ; Essential hypertension I10 ; Type 2 diabetes mellitus without complication, without long-term current use of insulin E11.9 ; Mixed hyperlipidemia E78.2 ; Acquired hypothyroidism E03.9 and Non-seasonal allergic rhinitis, unspecified trigger J30.89 ASSESSMENTS Encounter Date Diagnosis Assessment Notes Treatment Notes Treatment Clinical Notes Section Notes 12/02/2024 GERD without esophagitis (ICD-10 - K21.9) Using OTC medication that has improved symptoms. 12/02/2024 Acute intractable tension-type headache (ICD-10 - G44.201) Multiple treatment options discussed with patient but she refused. 12/02/2024 Essential hypertension (ICD-10 - I10) 12/02/2024 Type 2 diabetes mellitus without complication, without long-term current use of insulin (ICD-10 - E11.9) 12/02/2024 Mixed hyperlipidemia (ICD-10 - E78.2) 12/02/2024 Acquired hypothyroidism (ICD-10 - E03.9) 12/02/2024 Non-seasonal allergic rhinitis, unspecified trigger (ICD-10 - J30.89) 12/02/2024 Other This chart has been transcribed by a computerized dictation system. There are likely to be multiple hvac service tech inaccuracies despite chart review. PLAN OF TREATMENT Medication Medication Name Sig Start Date Stop Date Notes Glimepiride 1 MG 1 tablet in the morning and afternoon Orally Twice a day for 90 Days Triamterene-HCTZ 75-50 MG TAKE 1 TABLET BY MOUTH DAILY Oral I10,Unavailable Losartan Potassium 50 MG TAKE 1 TABLET B Y MOUTH DAILY Orally Amitriptyline HCl 25 MG TAKE 1 TABLET BY MOUTH AT BEDTIME Oral Carvedilol 3.125 MG TAKE 1 TABLET BY CYNTHIA TH TWICE DAILY Oral Atorvastatin Calcium 80 MG 1 tablet Oral ly Once a day for 90 Days Ezetimibe 10 MG 1 tablet Orally Once a day for 90 Days Jardiance 25 MG 1 tablet Orally Once a day for 90 Days Levothyroxine Sodium 50 MCG TAKE 1 TABLET BY MOUTH DAILY Oral Loratadine 10 MG 1 tablet Orally Once a day for 90 Days Fluticasone Propionate 50 MCG/ACT 1 spray in each nostril Nasally Once a day for 30 days Treatment Notes Assessment Notes GERD without esophagitis Using OTC medic ation that has improved symptoms. Acute intractable tension-type headache Multiple treatment options discussed with patient but she refused. Other This chart has been transcribed by a computerized dictation system. There are likely to be multiple hvac service tech inaccuracies despite chart review. Pending Test Test Name Order Date Hemoglobin [id number] 12/02/2024 LP+Non-HDL [id number] 12/02/2024 TSH+Free [id number] 12/02/2024 Hepatic Function Panel [id number] 2024 Next Appt Details Follow Up: 3 Months, Reason: Follow up with Ninos[facility] Provider Name:Joseph rose, 02/24/2025 01:45:00 PM, [address] [place] [address], [phone], Progress Notes * Examination Category Sub-Category Detail Notes Category Not es General Examination GENERAL APPEARANCE: in no ac [place] distress, well developed, well nourished HEAD: normocephalic, [...] adenopathy PSYCH: Mood fluctuating bet ween laughing, crying ORAL CAVITY: mucosa moist, no les ions, palate normal, tongue in midline, well papillated History and Physical Notes * HPI (History of Present Illness) Category Sub-Category Detail Notes Category Not es Symptom(s) 69-year-old fem tatianna patient with history of type 2 diabetes, hypertension, hyperlipidemia, hypothyroidism and allergic rhinitis is here for follow up. Her emotions continue to be labile today during the visit. She tells me she is compliant with her medications and then tells me she is doing things the natural way . She has started taking B vitamins that have given her energy back . Her GERD symptoms are well controlled on an OTC medication that she does not remember the name of. She is no longer taking Voquenza. Her blood pressure is well controlled. She denies chest pain, palpitations and shortness of breath. She tells me that she is taking her type 2 DM medications without side effects. I have ordered appropriate lab work for prior to her next visit. She tells me that she had injections in bilateral wrists for carpel tunnel with some improvement in symptoms.She tells me that she is planning on having spine injections with [facility] in [facility] but needs clearance. I asked her to bring in the paperwork for us to fill out if needed. It is okay for her to hold Aspirin 81mg for the four days prior to her injection and post injection if advised by MD performing the injection.
--- OUTSIDE RECORDS SUMMARY | 2024-12-03 09:04 | XMS_ITS ---
Author Organization [facility], Address [address] [place] [address] Care Team Providers Care Mail Teller Name Role Phone Joseph Taylor Primary Care Provider REASON FOR VISIT Message MEDICATIONS Medication SIG (Take, Route, Fr equency, Duration) Notes Start Date End Date Status CeraVe Psoriasis 2 % 1 application as ne eded Externally Twice a day for 30 days 12/03/2024 Active Encounters Encounter Location Date Provider Diagnosis [facility] [address] [place] [address] 12/04/19 Joseph Taylor PLAN OF TREATMENT Medication Medication Name Sig Start Date Stop Date Notes CeraVe Psoriasis 2 % 1 application as ne eded Externally Twice a day for 30 days 12/03/2024 Next Appt Details Provider Name:Joseph rose, 02/24/2025 01:45:00 PM, [address] [place] [address], [phone],
--- OUTSIDE RECORDS SUMMARY | 2024-12-28 05:08 | XMS_ITS ---
Author Organization [facility], Address [address] [place] [address] Care Team Providers Care Residential Direct Support Professional Name Role Phone Joseph Taylor Primary Care Provider REASON FOR VISIT Refills MEDICATIONS Medication SIG (Take, Route, Frequency, Duration) Notes Start Date End Date Status Levothyroxine Sodium 50 MCG 1 tablet in the morning on an empty stomach Orally Once a day for 90 days Active Encounters Encounter Location Date Provider Diagnosis [facility], [address] [address] 12/28/2024 Joseph Taylor Acquired hypothyroid ism E03.9 ASSESSMENTS Encounter Date Diagnosis Assessment Notes Treatment Notes Treatment Clinical Notes Section Notes 12/28/2024 Acquired hypothyroidism (ICD-10 - E03.9) PLAN OF TREATMENT Medication Medication Name Sig Start Date Stop Date Notes Levothyroxine Sodium 50 MCG 1 tablet in the morning on an empty stomach Orally Once a day for 90 days Next Appt Details Provider Name:Joseph rose, 02/24/2025 01:45:00 PM, [address] [place] [address], [phone],
--- NOTE | ~2025-01-07 | NM_ITS ---
Lexiscan Myocardial perfusion study Indication: Chest pain, shortness of breath Technique: The patient was brought in for a Lexiscan perfusion study on 01/07/2025 and was injected 0.4 mg of Lexiscan intravenously. Within a minute of this injection 30 mCi of sestamibi was given intravenously. Images were obtained using the SPECT gamma camera interlaced with the gating device. Images were obtained in supine position. Resting perfusion study was performed on 01/08/2025. Patient was administered 30 mCi of sestamibi intravenously at rest. Images were then obtained in supine position. Total DLP 143 mGy-cm. Images were processed with the software and compared side to side in short axis, horizontal long axis and vertical long axis views. Findings: Raw aquisition reviewed. Arms by the patient's side. The stress perfusion study showed decreased tracer uptake in the distal part of inferolateral wall and anteroseptal wall. The distal inferolateral defect improves with CT attenuation correction and hence could be artifactual. The resting study, again there is a defect in distal part of inferolateral wall and anteroseptal wall. Inferolateral defect improves with CT attenuation correction. The gated study shows normal LV systolic function with calculated LVEF of 69%. LV cavity is normal in size. The gated study shows normal wall thickening and contraction of segments. Resting study shows diminished tracer uptake in the distal part of anteroseptal wall and inferolateral wall. With CT attenuation correction, the distal inferolateral defect improves and hence probably related to CT attenuation correction. Gating at rest reveals normal wall motion with ejection fraction at 56%. The findings are consistent with fixed distal anteroseptal defect probably artifactual. Fixed distal inferolateral defect, again probably artifactual. NM/NM cardiolite stress test Impression: 1. Myocardial perfusion imaging study shows no clear evidence of ischemia or infarction. 2. Gated LVEF is 69% during stress and 56% during rest. 3. Transient ischemic dilatation not present. EKG component of the test reported separately. Electronically signed by: Errol Burton MD 01/10/2025 01:09 PM EDT
--- NOTE | 2025-01-07 09:45 | CA_ITS ---
Acquisition Time: 2025-01-07 09:54:17 Total Exercise Time: 00:02:00 Test Indications: CP,Dyspnea Medications: SEE H&P Protocol: LEXISCAN Max HR: 101 BPM 67% of Pred: 149 BPM Max BP: 132/78 mmHG Max Work Load: 1.0 METS Pharmacological stress test with Lexiscan injection, while sitting and kicking right leg, with 3-4/10 left chest pressure at baseline that did not change in severity but moved to midline during test, with rare PVC, with normotensive response to injection, with nondiagnostic EKG for ischemia. In recovery she reported headache that was treated with Aminophylline 75mg IVP to reverse lexiscan with resolution of symptom. Nuclear images pending. Test reviewed with Dr Burton. Referred By: Kunal Alatorre Electronically Signed By: АНДРЕЙ LOPEZ
--- NOTE | 2025-01-07 09:45 | HM_ITS ---
* Total monitoring time 3 days. * Underlying rhythm is sinus with an average rate of 78/Min. * Rare supraventricular ectopy. Short runs noted. * Rare ventricular ectopy. Rare couplets. * No significant pauses or high-grade AV blocks. * Symptom of 'pressure' correlates with ventricular ectopy. MTDD
--- OUTSIDE RECORDS SUMMARY | 2025-01-07 10:46 | XMS_ITS | Clinical Summary ---
Author Organization [facility] Address [address] [address] Phone Care Team Providers Care Tire Mold Engraver Name Role Phone Joseph Taylor MD Primary Care Provider [phone] Allergies No known active allergies Medications traMADol [...] of shoulder 09/26/2012 Overview (09/28/2024): Status: 'A'; Social History Tobacco Use Types Packs/Day Years [...] on patient's age to complete this topic Insurance [employer] MCR Adv PPO ([id number]) Medicaid [place] Care Teams Tire Mold Engraver Relationship Specialty Start Date End Date Joseph Taylor MD [address] [place] [id number] PCP - General Internal Medicine 08/10/24
--- OUTSIDE RECORDS SUMMARY | 2025-01-07 10:46 | XMS_ITS | Patient Health Record ---
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 Prediabetes: 5.7 - 6.4 Diabetes: >6.4 Glycemic control for adults with diabetes: <7.0 TSH+Free [id number] Reviewed date:01/22/2024 07:08:27 AM Interpretation: Performing Lab:[facility], [address] [facility], Phone - [phone], Director - MDJodry Notes/Report: TSH 3.690 0.450-4.500 uIU/mL T4,Free(Direct) 1.19 0.82-1.77 ng/dL Lipid Panel-[id number] Reviewed date:01/22/2024 07:08:27 AM Interpretation: Performing Lab:[facility], [address] [place] [address], Phone - [phone], Director - Ethany Notes/Report: Cholesterol, Total 254 100-199 mg/dL Triglycerides 251 0-149 mg/dL HDL Cholesterol 40 >39 mg/dL VLDL Cholesterol Jeff 47 5-40 mg/dL LDL Chol Calc ([facility]) 167 0-99 mg/dL LDL Calc Comment: Comp. Metabolic Panel (13)-[id number] Reviewed date:01/22/2024 07:08:27 AM Interpretation: Performing Lab:[facility], [address] [facility], Phone - [phone], Director - MDSarathy Notes/Report: Glucose 145 70-99 [...] IU/L AST (SGOT) 41 0-40 IU/L Hemoglobin [id number] Reviewed date:06/05/2024 07:06:08 AM Interpretation: Performing Lab:[facility], [address] [facility], Phone - [phone], Director - Ethany Notes/Report: Hemoglobin A1c 7.2 4.8-5.6 % . Prediabetes: 5.7 - 6.4 Diabetes: >6.4 Glycemic control for adults with diabetes: <7.0 Lipid Panel-[id number] Reviewed date:06/05/2024 07:06:08 AM Interpretation: Performing Lab:[facility], [address] [place] [address], Phone - [phone], Director - Sohan Notes/Report: Cholesterol, Total 219 100-199 mg/dL Triglycerides 382 0-149 mg/dL HDL Cholesterol 33 >39 mg/dL VLDL Cholesterol Jeff 67 5-40 mg/dL LDL Chol Calc ([facility]) 119 0-99 mg/dL LDL Calc Comment: Comp. Metabolic Panel (13)-[id number] Reviewed date:06/05/2024 07:06:08 AM Interpretation: Performing Lab:[facility], [address] [facility], Phone - [phone], Director - MDJodry Notes/Report: Glucose 109 70-99 [...] IU/L AST (SGOT) 34 0-40 IU/L Hemoglobin [id number] Reviewed date:11/03/2024 08:32:21 AM Interpretation: Performing Lab:[facility], [address] [facility], Phone - [phone], Director - MDJodry Notes/Report: Hemoglobin A1c 7.9 4.8-5.6 % . Prediabetes: 5.7 - 6.4 Diabetes: >6.4 Glycemic control for adults with diabetes: <7.0 TSH+Free [id number] Reviewed date:11/03/2024 08:32:21 AM Interpretation: Performing Lab:[facility], [address] [facility], Phone - [phone], Director - MDJodry Notes/Report: TSH 8.660 0.450-4.500 uIU/mL T4,Free(Direct) 1.01 0.82-1.77 ng/dL Lipid Panel-[id number] Reviewed date:11/03/2024 08:32:21 AM Interpretation: Performing Lab:[facility], [address] [facility], Phone - [phone], Director - Sohan Notes/Report: Cholesterol, Total 173 100-199 mg/dL Triglycerides 215 0-149 mg/dL HDL Cholesterol 43 >39 mg/dL VLDL Cholesterol Jeff 37 5-40 mg/dL LDL Chol Calc ([facility]) 93 0-99 mg/dL LDL Calc Comment: Comp. Metabolic Panel (13)-[id number] Reviewed date:11/03/2024 08:32:21 AM Interpretation: Performing Lab:[facility] [place], [address] [facility], [place], Phone - [phone], Director - Sohan Notes/Report: Glucose 137 70-99 [...] 44-121 IU/L AST (SGOT) 21 0-40 IU/L [id number] Reviewed date:11/03/2024 08:32:21 AM Interpretation: Performing Lab:[facility], [address] [facility], Phone - [phone], Director - Sohan Notes/Report: NT-proBNP 69 0-301 [...] HF) Age independent 300 pg/mL Sedimentation Rate-Davionre n-[id number] Reviewed date:09/09/2024 02:01:30 PM Interpretation: Performing Lab:[facility], [address] [facility], Phone - [phone], Director - Sohan Notes/Report: Sedimentation Rate-Alkeithren 21 0-40 mm/hr Lyme Disease Serology w/Refl ex-[id number] Reviewed date:09/09/2024 02:01:30 PM Interpretation: Performing Lab:[facility] [place], [address] [place] [address], [place], Phone - [phone], Director - Sohan Notes/Report: Lyme Total Antibody [...] is recommended. CBC with Diff, Platelet, NLR -[id number] Reviewed date:09/09/2024 02:01:30 PM Interpretation: Performing Lab:[facility] [place], [address] [place] [address], [place], Phone - [phone], Director - Sohan Notes/Report: WBC 7.9 3.4-10.8 [...] Notes Renal and Transplant , , F: [phone] Referral Priority Routine Referral Appointment Date 09/29/2024 [...] Duration) Notes Start Date End Date Status Triamterene-HCTZ 75-50 MG TAKE 1 TABLET BY MOUTH DAILY Oral I10,Unavailabl e Active Triamterene-HCTZ 75-50 MG TAKE 1 TABLET BY MOUTH DAILY IN THE MORNING for 90 Active Losartan Potassium 50 MG TAKE 1 TABLET BY MOUTH DAILY Orally Active Levothyroxine Sodium 50 MCG TAKE 1 TABLET BY MOUTH DAILY for 90 Active Carvedilol 3.125 MG TAKE 1 TABLET BY MOUTH TWICE DAILY Oral Active Clobetasol Propionate 0.05 % 1 application Externally Twice a day for 30 days 09/08/2024 Active Levothyroxine Sodium 50 MCG 1 tablet in the morning on an empty stomach Orally Once a day for 90 days Active Fluticasone Propionate 50 MCG/ACT 1 spray in each nostril Nasally Once a day for 30 days Active Jardiance 25 MG TAKE 1 TABLET BY MOUTH DAILY for 90 Active Carvedilol 3.125 MG TAKE 1 TABLET BY MOUTH TWICE DAILY WITH FOOD for 90 Active Atorvastatin Calcium 80 MG 1 tablet Orally Once a day for 90 Days Active CeraVe Psoriasis 2 % 1 application as needed Externally Twice a day for 30 days 12/03/2024 Active Ezetimibe 10 MG 1 tablet Orally Once a day for 90 Days Active Glimepiride 1 MG 1 tablet in the morning and afternoon Orally Twice a day for 90 Days Active Jardiance 25 MG 1 tablet Orally Once a day for 90 Days Active Amitriptyline HCl 25 MG TAKE 1 TABLET BY MOUTH AT BEDTIME Oral Active Loratadine 10 MG 1 tablet Orally Once a day for 90 Days Active IMMUNIZATIONS Vaccine Route Administration Date Status Comme nts *Influenza (Fluarix Quad) IM Intramuscular 01/02/2024 Admi nistered PROBLEMS Problem Type ICD Code Onset Dates Problem Status W/U Status Risk SNOMED Code Notes Problem Postmenopausal bleeding (N95.0) Active confirmed 12187556 Problem Mixed hyperlipidemia (E78.2) Active confirmed 888093770 Problem Essential hypertension (I10) Active confirmed 58422237 Problem Acquired hypothyroidism (E03.9) Active confirmed 067430935 Problem Plaque psoriasis (L40.0) Active confirmed 202561796 Problem Type 2 diabetes mellitus without complication, without long-term current use of insulin (E11.9) Active confirmed 841236095 Problem Non-seasonal allergic rhinitis, unspecified trigger (J30.89) Active confirmed 13371416 Problem GERD without esophagitis (K21.9) Active confirmed 234216838 Problem Stage 3a chronic kidney disease (N18.31) Active confirmed 932548966 Problem Acute intractable tension-type headache (G44.201) Active confirmed 675682393 VITAL SIGNS Heart Rate 72 /min 12/02/2024 Blood pressure diastolic 70 mm Hg 12/02/2024 Height 64 in 12/02/2024 Blood pressure systolic 110 mm Hg 12/02/2024 Weight 210.8 lbs 12/02/2024 BMI 36.18 kg/m2 12/02/2024 Encounters Encounter [facility] Date [facility] [address] [address] 01/09/2024 Joseph Taylor Essential hypertensi on I[facility] [address] [address] 01/20/2024 Joseph Taylor Essential hypertensi on I10 ; Type 2 diabetes mellitus without complication, without long-term current use of insulin E11.9 ; Mixed hyperlipidemia E78.2 ; Acquired hypothyroidism E03.9 and Non-seasonal allergic rhinitis, unspecified trigger J30.89 [facility] [address] [address] 02/04/2024 Joseph Taylor Taylor [facility], [address] [address] 02/04/2024 Joseph Taylor Essential hypertensi on I10 ; Type 2 diabetes mellitus without complication, without long-term current use of insulin E11.9 ; Mixed hyperlipidemia E78.2 ; Acquired hypothyroidism E03.9 and Non-seasonal allergic rhinitis, unspecified trigger J30.89 [facility] [address] [address] 02/13/2024 [facility] [address] [address] 04/06/2024 Joseph Taylor Rib pain on right si de R07.81 [facility] [address] [address] 05/06/2024 Joseph Taylor [facility], [address] [address] 05/20/2024 Joseph Taylor [facility], [address] [address] 05/21/2024 Joseph Taylor [facility], [address] [address] 06/01/2024 Joseph Taylor [facility], [address] [address] 06/03/2024 Joseph Taylor Essential hypertensi on I10 ; Type 2 diabetes mellitus without complication, without long-term current use of insulin E11.9 ; Mixed hyperlipidemia E78.2 ; Acquired hypothyroidism E03.9 ; Non-seasonal allergic rhinitis, unspecified trigger J30.89 and Benign paroxysmal positional vertigo, unspecified laterality H81.10 [facility] [place], [address] [address] 06/15/2024 Joseph Taylor Essential hypertensi on I10 ; Type 2 diabetes mellitus without complication, without long-term current use of insulin E11.9 ; Mixed hyperlipidemia E78.2 ; Acquired hypothyroidism E03.9 ; Non-seasonal allergic rhinitis, unspecified trigger J30.89 and Benign paroxysmal positional vertigo, unspecified laterality H81.10 [facility], [address] [address] 08/05/2024 Joseph Taylor Essential hypertensi on I10 ; Type 2 diabetes mellitus without complication, without long-term current use of insulin E11.9 ; Mixed hyperlipidemia E78.2 ; Acquired hypothyroidism E03.9 ; Non-seasonal allergic rhinitis, unspecified trigger J30.89 ; Benign paroxysmal positional vertigo, unspecified laterality H81.10 ; Stage 3a chronic kidney disease N18.31 ; Facial skin lesion L98.9 and Seborrheic keratosis L82.1 [facility] [place], [address] [address] 09/01/2024 Joseph mary kay [facility], [address] [address] 09/08/2024 Joseph Taylor Plaque psoriasis L40 .[address] [address] 09/10/2024 Joseph Taylor Acute abdomen R10.0 and Postmenopausal bleeding N95.[address] [address] 09/11/2024 Joseph mary kay [facility], [address] [address] 09/11/2024 Joseph mary kay [facility], [address] [address] 09/30/2024 Joseph Taylor Plaque psoriasis L40 .0 and Pruritus L29.[address] [address] 10/28/2024 Joseph Taylor [facility], [address] [address] 11/04/2024 Joseph Taylor GERD without esophag itis K21.9 ; Acute intractable tension-type headache G44.201 ; Essential hypertension I10 ; Type 2 diabetes mellitus without complication, without long-term current use of insulin E11.9 ; Mixed hyperlipidemia E78.2 ; Acquired hypothyroidism E03.9 and Non-seasonal allergic rhinitis, unspecified trigger J30.89 [facility], [address] [address] 11/04/2024 Ninoska Lewis [facility], [address] [address] 11/10/2024 Joseph Stephanmary kay [facility], [address] [address] 11/10/2024 [facility] [address] [address] 11/24/2024 Joseph Stephanmary kay [facility], [address] [address] 12/02/2024 oJseph Taylor GERD without esophag itis K21.9 ; Acute intractable tension-type headache G44.201 ; Essential hypertension I10 ; Type 2 diabetes mellitus without complication, without long-term current use of insulin E11.9 ; Mixed hyperlipidemia E78.2 ; Acquired hypothyroidism E03.9 and Non-seasonal allergic rhinitis, unspecified trigger J30.89 [facility], [address] [address] 12/03/2024 [facility] [address] [address] 12/28/2024 Joseph Stephanmary kay Acquired hypothyroid ism E03.9 ASSESSMENTS Encounter Date Diagnosis Assessment Notes Treatment Notes Treatment Clinical Notes Section Notes 01/09/2024 Essential hypertension (ICD-10 - I10) 01/20/2024 Type 2 diabetes mellitus without complication, without long-term current use of insulin (ICD-10 - E11.9) 01/20/2024 Essential hypertension (ICD-10 - I10) 02/04/2024 Type 2 diabetes mellitus without complication, without long-term current use of insulin (ICD-10 - E11.9) 02/04/2024 Essential hypertension (ICD-10 - I10) 04/06/2024 Rib [...] to fill the prescription in lesser amount. [place] PAT verified. 08/05/2024 Type 2 diabetes mellitus without complication, without long-term current use of insulin (ICD-10 - E11.9) 08/05/2024 Essential hypertension (ICD-10 - I10) 09/08/2024 Plaque psoriasis (ICD-10 - L40.0) 09/10/2024 Acute abdomen (ICD-10 - R10.0) Patient was advised to go to emergency room immediately to rule out appendicitis. 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 09/30/2024 Plaque psoriasis (ICD-10 - L40.0) 09/30/2024 Pruritus (ICD-10 - L29.9) 12/28/2024 Acquired hypothyroidism (ICD-10 - E03.9) 12/02/2024 GERD without esophagitis (ICD-10 - K21.9) Using OTC medication that has improved symptoms. 11/04/2024 Acute intractable tension-type headache (ICD-10 - G44.201) Multiple treatment options discussed with patient but she refused. 11/04/2024 GERD without esophagitis (ICD-10 - K21.9) 06/15/2024 Essential hypertension (ICD-10 - I10) 06/03/2024 Type 2 diabetes mellitus without complication, without long-term current use of insulin (ICD-10 - E11.9) 06/03/2024 Essential hypertension (ICD-10 - I10) 06/03/2024 Mixed hyperlipidemia (ICD-10 - E78.2) 06/15/2024 Type 2 diabetes mellitus without complication, without long-term current use of insulin (ICD-10 - E11.9) 01/20/2024 Mixed hyperlipidemia (ICD-10 - E78.2) 11/04/2024 Essential hypertension (ICD-10 - I10) 02/04/2024 Mixed hyperlipidemia (ICD-10 - E78.2) 08/05/2024 Mixed hyperlipidemia (ICD-10 - E78.2) 12/02/2024 Essential hypertension (ICD-10 - I10) 12/02/2024 Acute intractable tension-type headache (ICD-10 - G44.201) Multiple treatment options discussed with patient but she refused. 01/20/2024 Acquired hypothyroidism (ICD-10 - E03.9) 02/04/2024 Acquired hypothyroidism (ICD-10 - E03.9) 08/05/2024 Acquired hypothyroidism (ICD-10 - E03.9) 12/02/2024 Type 2 diabetes mellitus without complication, without long-term current use of insulin (ICD-10 - E11.9) 11/04/2024 Type 2 diabetes mellitus without complication, without long-term current use of insulin (ICD-10 - E11.9) 06/15/2024 Mixed hyperlipidemia (ICD-10 - E78.2) 06/03/2024 Acquired hypothyroidism (ICD-10 - E03.9) 12/02/2024 Mixed hyperlipidemia (ICD-10 - E78.2) 08/05/2024 Non-seasonal allergic rhinitis, unspecified trigger (ICD-10 - J30.89) 11/04/2024 Mixed hyperlipidemia (ICD-10 - E78.2) 02/04/2024 Non-seasonal allergic rhinitis, unspecified trigger (ICD-10 - J30.89) 06/15/2024 Acquired hypothyroidism (ICD-10 - E03.9) 01/20/2024 Non-seasonal allergic rhinitis, unspecified trigger (ICD-10 - J30.89) 06/03/2024 Non-seasonal allergic rhinitis, unspecified trigger (ICD-10 - J30.89) 12/02/2024 Acquired hypothyroidism (ICD-10 - E03.9) 08/05/2024 Benign paroxysmal positional vertigo, unspecified laterality (ICD-10 - H81.10) 11/04/2024 Acquired hypothyroidism (ICD-10 - E03.9) 06/15/2024 Non-seasonal allergic rhinitis, unspecified trigger (ICD-10 - J30.89) 06/03/2024 Benign paroxysmal positional vertigo, unspecified laterality (ICD-10 - H81.10) 12/02/2024 Non-seasonal allergic rhinitis, unspecified trigger (ICD-10 - J30.89) 11/04/2024 Non-seasonal allergic rhinitis, unspecified trigger (ICD-10 - J30.89) 08/05/2024 Stage 3a chronic kidney disease (ICD-10 - N18.31) 06/15/2024 Benign paroxysmal positional vertigo, unspecified laterality (ICD-10 - H81.10) 08/05/2024 Facial skin lesion (ICD-10 - L98.9) 08/05/2024 Seborrheic keratosis (ICD-10 - L82.1) 11/04/2024 Other This chart has been transcribed by a computerized dictation system. There are likely to be multiple financial analyst inaccuracies despite chart review. 01/20/2024 Other This chart has been transcribed by a computerized dictation system. There are likely to be multiple financial analyst inaccuracies despite chart review. 02/04/2024 Other This chart has been transcribed by a computerized dictation system. There are likely to be multiple financial analyst inaccuracies despite chart review. 06/03/2024 Other This chart has been transcribed by a computerized dictation system. There are likely to be multiple financial analyst inaccuracies despite chart review. 06/15/2024 Other This chart has been transcribed by a computerized dictation system. There are likely to be multiple financial analyst inaccuracies despite chart review. 08/05/2024 Other This chart has been transcribed by a computerized dictation system. There are likely to be multiple financial analyst inaccuracies despite chart review. 09/10/2024 Other This chart has been transcribed by a computerized dictation system. There are likely to be multiple financial analyst inaccuracies despite chart review. 12/02/2024 Other This chart has been transcribed by a computerized dictation system. There are likely to be multiple financial analyst inaccuracies despite chart review. 04/06/2024 Other This chart has been transcribed by a computerized dictation system. There are likely to be multiple financial analyst inaccuracies despite chart review. 09/08/2024 Other This chart has been transcribed by a computerized dictation system. There are likely to be multiple financial analyst inaccuracies despite chart review. 09/30/2024 Other This chart has been transcribed by a computerized dictation system. There are likely to be multiple financial analyst inaccuracies despite chart review. 10/28/2024 Other This chart has been transcribed by a computerized dictation system. There are likely to be multiple financial analyst inaccuracies despite chart review. PLAN OF TREATMENT Pending Test Test Name Order Date Ultrasound : Right Upper Quadrant 2023 X ray : Rib series, right 04/06/2024 MAMMOGRAM, SCREENING 09/17/2023 Ultrasound : Kidneys 09/17/2023 *EKG 12/19/2023 Hemoglobin [id number] 10/17/2023 Hemoglobin M7a-[id number] 12/02/2024 LP+Non-HDL Cholesterol-545249 12/02/2024 TSH+Free [id number] 12/02/2024 Hepatic Function Panel ([id number] 2024 Hepatic Function Panel ([id number] 2023 Lipid Panel-[id number] 10/17/2023 Next Appt Details Provider Name:Joseph rose, 02/24/2025 01:45:00 PM, [address] [place] [address], [phone], Insurance Providers Payer Name Payer Address Payer Phone Subscriber Number Group Number Insured Name Patient Relationship to Insured Coverage Start Date Coverage End Date [employer] [address] [place] [address] [id number] Sylwia Correia Self - patient is the insured [facility] [address] [place] [address] [id number] Sylwia Correia Self - patient is the [...]
== END ==
LOC: HO.CARD 09:42
DX: R00.2 Palpitations (principal); R07.9 Chest pain, unspecified
CPT/HCPCS: 78452; 93017; 93242; A9500; J0280; J2785

== ENCOUNTER → 2025-01-07 09:45 | Outpatient (BNV) | payer MEDICARE, MEDICAID, SELFPAY | PROVIDERS: Visit Provider Nurse Practitioner Family | DX: I49.3 Ventricular premature depolarization (principal); R07.89 Other chest pain | CPT/HCPCS: 78452; 93016; 93018 ==

== ENCOUNTER 2025-01-28 14:07 | Outpatient (AMB) | payer MEDICARE, MEDICAID, SELFPAY ==
--- OUTSIDE RECORDS SUMMARY | 2024-09-30 04:30 | XMS_ITS ---
Author Organization [facility] Address [address] [place] [address] Care Team Providers Care Hogshead Hand Name Role Phone [facility] Josehp Primary Care Provider [phone] ALLERGIES Allergen (clinical drug ingredient) Drug/Non Drug Allergy documented on EMR Reaction Allergy Type Onset Date Status Biaxin Unknown Drug Allergy Active acetaminophen Tylenol Unknown Drug Allergy Act gerard codeine Codeine Unknown Drug Allergy Active duloxetine Duloxetine Unknown Drug Allergy Activ e gabapentin Gabapentin Unknown Drug Allergy Activ e naproxen Naproxen Unknown Drug Allergy Active REASON FOR VISIT (IN OFFICE), Sick Visit MEDICATIONS Medication SIG (Take, Route, Frequency, Duration) Notes Start Date End Date Status Lidoderm 5 % 1 patch remove after 12 hours Externally Once a day for 10 days 04/06/2024 Active traMADol HCl 50 MG 1 tablet as needed O rally every 6 hrs partial fill upon request for 5 days 04/06/2024 Active metFORMIN HCl 500 MG 1 tablet with a van l Orally Twice a day for 90 Days Active Atorvastatin Calcium 80 MG 1 tablet Oral ly Once a day for 90 Days Active Pantoprazole Sodium 40 MG Oral for 90 Active Fluticasone Propionate 50 MCG/ACT 1 spray in each nostril Nasally Once a day for 30 days Active Meclizine HCl 25 MG 1 tablet as needed O rally every 12 hrs for 14 days Active Losartan Potassium 100 MG TAKE 1 TABLET BY MOUTH DAILY Oral Active Loratadine 10 MG 1 tablet Orally Once a day for 90 Days Active Otezla 10 & 20 & 30 MG as directed Orall y Twice a day 09/30/2024 Active traMADol HCl 50 MG 1 tablet as needed O rally every 6 hrs partial fill upon request for 3 days 09/11/2024 Active Jardiance 25 MG TAKE 1 TABLET BY CYNTHIA TH DAILY for 90 Active Triamterene-HCTZ 75-50 MG TAKE 1 TABLET BY MOUTH DAILY IN THE MORNING for 90 Active Clobetasol Propionate 0.05 % 1 application Externally Twice a day for 30 days 09/08/2024 Active Glimepiride 1 MG TAKE 1 TABLET BY CYNTHIA TH TWICE DAILY IN THE MORNING AND IN THE AFTERNOON for 90 Active metFORMIN HCl 500 MG TAKE 1 TABLET BY MO UTH TWICE DAILY WITH A MEAL for 90 Active Carvedilol 3.125 MG TAKE 1 TABLET BY CYNTHIA TH TWICE DAILY WITH FOOD for 90 Active Triamcinolone Acetonide 0.1 % 1 application Externally Twice a day 01/03/2024 Active Atorvastatin Calcium 80 MG TAKE 1 TABLET BY MOUTH DAILY for 90 Active Levothyroxine Sodium 50 MCG TAKE 1 TABLE T BY MOUTH DAILY for 90 Active Ezetimibe 10 MG TAKE 1 TABLET BY CYNTHIA TH DAILY for 90 Active Nystatin 990635 UNIT/GM 1 application Ex ternally Twice a day for 30 days 01/03/2024 Active Amitriptyline HCl 25 MG TAKE 1 TABLET BY MOUTH AT BEDTIME Oral for 30 Active Loperamide HCl 2 MG TAKE 1 CAPSULE BY MO UTH EVERY 4 HOURS NEEDED FOR LOOSE STOOLS Oral for 60 Active VITAL SIGNS Blood pressure systolic 118 mm Hg 10/01/19 Blood pressure diastolic 80 mm Hg 025 Heart Rate 76 /min 09/30/2024 Height 64 in 09/30/2024 Weight 212.6 lbs 09/30/2024 BMI 36.49 kg/m2 09/30/2024 Encounters Encounter Location Date Provider Diagnosis [address] [phone] 09/30/2024 Joseph Taylor Plaque psoriasis L40.0 and Pruritus L29.9 ASSESSMENTS Encounter Date Diagnosis Assessment Notes Treatment Notes Treatment Clinical Notes Section Notes 09/30/2024 Plaque psoriasis (ICD-10 - L40.0) 09/30/2024 Pruritus (ICD-10 - L29.9) 09/30/2024 Other This chart has been transcribed by a computerized dictation system. There are likely to be multiple director medical safety inaccuracies despite chart review. PLAN OF TREATMENT Medication Medication Name Sig Start Date Stop Date Notes Otezla 10 & 20 & 30 MG as directed Orall y Twice a day 09/30/2024 Triamcinolone Acetonide 0.1 % 1 applicat ion Externally Twice a day 01/03/2024 Treatment Notes Assessment Notes Other This chart has been transcribed by a computerized dictation system. There are likely to be multiple director medical safety inaccuracies despite chart review. Next Appt Details Follow Up: as scheduled, Angie son: Provider Name:Ninoska Lewis, 02/24/2025 01:45:00 PM, [address] [place] [address], [phone], Progress Notes * Examination Category Sub-Category Detail Notes Category Not es General Examination GENERAL APPEARANCE: in no ac naknek distress, well developed, well nourished EYES: no pallor, sclera no n-icteric NECK/THYROID: neck supple, full ra nge of motion, no cervical lymphadenopathy HEART: RRR, no MRGs, no amrit ma LUNGS: clear to auscultatio n bilaterally, normal respiratory effort SKIN: Extensive plaque pso riasis bilateral feet LYMPH NODES: no palpable adenopat hy PSYCH: cognitive function i ntact, mood/affect full range ORAL CAVITY: mucosa moist History and Physical Notes * HPI (History of Present Illness) Category Sub-Category Detail Notes Category Not es Symptom(s) 69-year-old fem tatianna patient with history of type 2 diabetes, hypertension, hyperlipidemia, hypothyroidism, allergic rhinitis, is here complaining of worsening rash over bilateral feet. Patient has been using Topicort steroid without much improvement in her symptoms. I talked to the patient about systemic medications available for psoriasis. I started the patient on Otezla and give her samples of the medication. She was recently evaluated by nephrology and was told that her renal function is good. I reviewed the consultation note [place] visit.
--- OUTSIDE RECORDS SUMMARY | 2024-10-28 09:15 | XMS_ITS ---
Author Organization [facility], Address [address] [place] [address] Care Team Providers Care Indirect Sales Representative Name Role Phone [facility] Joseph Primary Care [...] LOOSE STOOLS Oral for 60 Active Nystatin [id number] UNIT/GM 1 application Ex ternally Twice a [...] Active Encounters Encounter Location Date Provider Diagnosis [facility], [address] [place] [address] 10/29/19 Joseph Taylor ASSESSMENTS Encounter Date Diagnosis Assessment Notes Treatment Notes Treatment Clinical Notes Section Notes 10/28/2024 Other This chart has been transcribed by a computerized dictation system. There are likely to be multiple freight car loader inaccuracies despite chart review. PLAN OF TREATMENT Treatment Notes Assessment Notes Other This chart has been transcribed by a computerized dictation system. There are likely to be multiple freight car loader inaccuracies despite chart review. Next Appt Details Provider Name:Ninoska Lewis, 02/24/2025 01:45:00 PM, [address] [place] [address], [id number],
--- OUTSIDE RECORDS SUMMARY | 2024-11-04 06:45 | XMS_ITS ---
Author Organization [facility] Address [address] [place] [address] Care Team Providers Care Plug Paster Name Role Phone AmyJoseph rose Primary Care Provider ALLERGIES Allergen (clinical drug ingredient) Drug/Non Drug Allergy documented on EMR Reaction Allergy Type Onset Date Status Biaxin Unknown Drug Allergy Active acetaminophen Tylenol Unknown Drug Allergy Act gerard apremilast Otezla couldn't function Drug Allergy Active codeine Codeine Unknown Drug Allergy Active duloxetine Duloxetine Unknown Drug Allergy Activ e gabapentin Gabapentin Unknown Drug Allergy Activ e naproxen Naproxen Unknown Drug Allergy Active pantoprazole Pantoprazole Unknown Drug Allergy A ctive REASON FOR VISIT (IN OFFICE), Follow Up, Sick visit- burning in stomach, Sick visit- headaches MEDICATIONS Medication SIG (Take, Route, Frequency, Duration) Notes Start Date End Date Status Voquezna 10 MG 1 tablet Orally Once a day for 30 day(s) 11/04/2024 Active Pantoprazole Sodium 40 MG Oral for 90 Not-Taking metFORMIN HCl 500 MG 1 tablet with a meal Orally Twice a day for 90 Days Not-Taking Glimepiride 1 MG 1 tablet in the morning and afternoon Orally Twice a day for 90 Days Active Amitriptyline HCl 25 MG TAKE 1 TABLET BY MOUTH AT BEDTIME Oral Active Nystatin 487518 UNIT/GM 1 application Externally Twice a day for 30 days 01/03/2024 Not-Taking Loperamide HCl 2 MG TAKE 1 CAPSULE BY MOUTH EVERY 4 HOURS NEEDED FOR LOOSE STOOLS Oral for 60 Not-Taking Otezla 10 & 20 & 30 MG as directed Orall y Twice a day 09/30/2024 Not-Taking Famotidine 40 MG 1 tablet Orally Once a day for 30 day(s) Not-Taking Jardiance 25 MG 1 tablet Orally Once a day for 90 Days Active Triamcinolone Acetonide 0.1 % 1 application Externally Twice a day 01/03/2024 Not-Taking Triamterene-HCTZ 75-50 MG TAKE 1 TABLET BY MOUTH DAILY IN THE MORNING for 90 Active Lidoderm 5 % 1 patch remove after 12 hours Externally Once a day for 10 days 04/06/2024 Not-Taking Meclizine HCl 25 MG 1 tablet as needed Orally every 12 hrs for 14 days Not-Taking traMADol HCl 50 MG 1 tablet as needed Orally every 6 hrs partial fill upon request for 5 days 04/06/2024 Not-Taking Carvedilol 3.125 MG TAKE 1 TABLET BY MOUTH TWICE DAILY WITH FOOD for 90 Active Glimepiride 1 MG TAKE 1 TABLET BY MOUTH TWICE DAILY IN THE MORNING AND IN THE AFTERNOON for 90 Active Jardiance 25 MG TAKE 1 TABLET BY MOUTH DAILY for 90 Active Levothyroxine Sodium 50 MCG TAKE 1 TABLET BY MOUTH DAILY for 90 Active Clobetasol Propionate 0.05 % 1 application Externally Twice a day for 30 days 09/08/2024 Active Atorvastatin Calcium 80 MG TAKE 1 TABLET BY MOUTH DAILY for 90 Active Atorvastatin Calcium 80 MG 1 tablet Orally Once a day for 90 Days Active Ezetimibe 10 MG 1 tablet Orally Once a day for 90 Days Active Triamterene-HCTZ 75-50 MG TAKE 1 TABLET BY MOUTH DAILY Oral I10,Unavailab le Active Ezetimibe 10 MG TAKE 1 TABLET BY MOUTH DAILY for 90 Active Fluticasone Propionate 50 MCG/ACT 1 spray in each nostril Nasally Once a day for 30 days Active Loratadine 10 MG 1 tablet Orally Once a day for 90 Days Active Levothyroxine Sodium 50 MCG TAKE 1 TABLET BY MOUTH DAILY Oral Active Carvedilol 3.125 MG TAKE 1 TABLET BY MOUTH TWICE DAILY Oral Active Losartan Potassium 50 MG TAKE 1 TABLET BY MOUTH DAILY Orally Active PROBLEMS Problem Type ICD Code Onset Dates Problem Status W/U Status Risk SNOMED Code Notes Problem GERD without esophagitis (K21.9) Active confirmed 805895588 Problem Acute intractable tension-type headache (G44.201) Active confirmed 685194725 VITAL SIGNS Blood pressure systolic 102 mm Hg 11/05/19 25 Blood pressure diastolic 70 mm Hg 07/30/2 025 Heart Rate 80 /min 11/04/2024 Height 64 in 11/04/2024 pt refused to be weighed Encounters Encounter Location Date Provider Diagnosis [facility], [address] [address] 11/04/2024 Joseph Taylor GERD without esophag itis K21.9 ; Acute intractable tension-type headache G44.201 ; Essential hypertension I10 ; Type 2 diabetes mellitus without complication, without long-term current use of insulin E11.9 ; Mixed hyperlipidemia E78.2 ; Acquired hypothyroidism E03.9 and Non-seasonal allergic rhinitis, unspecified trigger J30.89 ASSESSMENTS Encounter Date Diagnosis Assessment Notes Treatment Notes Treatment Clinical Notes Section Notes 11/04/2024 GERD without esophagitis (ICD-10 - K21.9) 11/04/2024 Acute intractable tension-type headache (ICD-10 - G44.201) Multiple treatment options discussed with patient but she refused. 11/04/2024 Essential hypertension (ICD-10 - I10) 11/04/2024 Type 2 diabetes mellitus without complication, without long-term current use of insulin (ICD-10 - E11.9) 11/04/2024 Mixed hyperlipidemia (ICD-10 - E78.2) 11/04/2024 Acquired hypothyroidism (ICD-10 - E03.9) 11/04/2024 Non-seasonal allergic rhinitis, unspecified trigger (ICD-10 - J30.89) 11/04/2024 Other This chart has been transcribed by a computerized dictation system. There are likely to be multiple turf farm worker inaccuracies despite chart review. PLAN OF TREATMENT Medication Medication Name Sig Start Date Stop Date Notes Voquezna 10 MG 1 tablet Orally Once a day for 30 day(s) 11/04/2024 Glimepiride 1 MG 1 tablet in the morning and afternoon Orally Twice a day for 90 Days Amitriptyline HCl 25 MG TAKE 1 TABLET BY MOUTH AT BEDTIME Oral Jardiance 25 MG 1 tablet Orally Once a day for 90 Days Atorvastatin Calcium 80 MG 1 tablet Oral ly Once a day for 90 Days Ezetimibe 10 MG 1 tablet Orally Once a day for 90 Days Triamterene-HCTZ 75-50 MG TAKE 1 TABLET BY MOUTH DAILY Oral I10,Unavailable Fluticasone Propionate 50 MCG/ACT 1 spray in each nostril Nasally Once a day for 30 days Loratadine 10 MG 1 tablet Orally Once a day for 90 Days Levothyroxine Sodium 50 MCG TAKE 1 TABLET BY MOUTH DAILY Oral Carvedilol 3.125 MG TAKE 1 TABLET BY CYNTHIA TH TWICE DAILY Oral Losartan Potassium 50 MG TAKE 1 TABLET B Y MOUTH DAILY Orally Treatment Notes Assessment Notes Acute intractable tension-type headache Multiple treatment options discussed with patient but she refused. Other This chart has been transcribed by a computerized dictation system. There are likely to be multiple turf farm worker inaccuracies despite chart review. Next Appt Details Follow Up: 4 Weeks, Reason: Follow-up [facility] Dr. Taylor Provider Name:Ninoska Lewis, 02/24/2025 01:45:00 PM, [address] [place] [address], [phone], Progress Notes * Examination Category Sub-Category Detail Notes Category Not es General Examination GENERAL APPEARANCE: in no ac [place] distress, well developed, well nourished HEAD: normocephalic, atrau matic EYES: pupils equal, round, reactive to light and accommodation THROAT: clear, no erythema, uvula midline, no exudate NECK/THYROID: neck supple, no thyr omegaly, trachea midline, no carotid bruit HEART: no murmurs, regular rate and rhythm, S1, S2 normal LUNGS: clear to auscultatio n bilaterally ABDOMEN: soft, nontender, non distended, no organomegaly, bowel sounds present NEUROLOGIC: alert and oriented x 3, nonfocal SKIN: no suspicious lesion s, warm and dry EXTREMITIES: no clubbing, cyanosi s, or edema PERIPHERAL PULSES: normal, 2+ throughou t MUSCULOSKELETAL: normal, full range o f motion LYMPH NODES: no cervical, axillar y, supraclavicular or inguinal adenopathy PSYCH: Mood fluctuating bet ween laughing, crying, and becoming angry ORAL CAVITY: mucosa moist, no les ions, palate normal, tongue in midline, well papillated History and Physical Notes * HPI (History of Present Illness) Category Sub-Category Detail Notes Category Not es Symptom(s) 69-year-old fem tatianna patient with history of type 2 diabetes, hypertension, hyperlipidemia, hypothyroidism, allergic rhinitis, is here for follow-up. My encounter with this patient today was very challenging because she would start laughing and telling me that she is medicating with cannabis, followed by crying, followed by blaming physicians for not treating her, and then laughing again. Since last visit patient was evaluated in the emergency department last month due to right lower quadrant pain and her imaging was notable for a 3 cm ovarian cyst. She was advised to follow up with her affiliate marketing coordinator but has not. Patient was also seen in the emergency department last week due to headaches and altered speech. She tells me that she has had difficulty getting her words out and was noted to be stuttering. Her workup included an EEG, CT, and MRI which were all negative for any pathology. Patient tells me that she continues to have headaches towards the top of her skull with ringing in her ears. Patient tells me that she had a telephone appointment with her neurologist yesterday who told her that there was evidence of 4 brain bleeds on her MRI. Our office obtained records after patient checked out and there is no mention of any pathology on her brain imaging. I reviewed the consultation note and it was recommended to follow up with cardiology due to vertigo. It was felt that the pressure she is feeling in her head is related to her blood pressure but her blood pressure is on the low side today. I advised her to decrease her dose of losartan to 50 mg daily. I talked to patient about different treatment options for her headaches but she tells me that nothing will work because it is related to the bleeding in her head. She has been taking amitriptyline 25 mg at bedtime which has helped her to sleep but has not helped her headaches. I talked to her about a referral to a headache clinic that is run by neurologist but she tells me that she does not have anybody to bring her there. Our office will try to get her in with her neurologist sooner. Patient is scheduled to have a physical therapist come to her home tomorrow and will also be seeing a visiting nurse. I discussed patient's labs with her which shows very poor control of her diabetes. She tells me that she is not taking metformin and refuses to take it because she heard bad things about the medication. I advised her to significantly cut down on carbohydrate intake. Patient complains of a persistent burning feeling in her stomach. I talked to her about GERD and she has not taken famotidine for about a week because she has been unable to get to the pharmacy. Patient tells me that she has been unable to take pantoprazole because she had an adverse reaction to it. I advised her to stop Voquezna 10 mg daily. I provided her with a month of samples.
--- OUTSIDE RECORDS SUMMARY | 2024-11-04 07:38 | XMS_ITS ---
Author Organization [facility] Address [address] [place] [address] Care Team Providers Care Plate Take Out Worker Name Role Phone Joseph Taylor Primary Care Provider Ninoska Lewis [phone] REASON FOR VISIT Neurology Encounters Encounter [facility] Date [facility] [address] [place] [address] 11/05/19 25 Ninoska Lewis PLAN OF TREATMENT Next Appt Details Provider Name:Ninoska Lewis, 02/24/2025 01:45:00 PM, [address] [place] [address], [phone],
--- OUTSIDE RECORDS SUMMARY | 2024-11-10 11:01 | XMS_ITS ---
Author Organization [facility] Address [address] [place] [address] Care Team Providers Care Merchandising Team Lead Name Role Phone Joseph Taylor Primary Care Provider REASON FOR VISIT Refills MEDICATIONS Medication SIG (Take, Route, Fr equency, Duration) Notes Start Date End Date Status Carvedilol 3.125 MG 1 tablet with food O rally Twice a day for 90 days Active Encounters Encounter Location Date Provider Diagnosis [facility] [address] [place] [address] 11/11/19 Joseph Taylor PLAN OF TREATMENT Medication Medication Name Sig Start Date Stop Date Notes Carvedilol 3.125 MG 1 tablet with food O rally Twice a day for 90 days Next Appt Details Provider Name:Ninoska Joshua, 02/24/2025 01:45:00 PM, [address] [place] [address], [phone],
--- OUTSIDE RECORDS SUMMARY | 2024-11-10 11:05 | XMS_ITS ---
Author Organization [facility], Address [address] [place] [address] Care Team Providers Care Emergency Operator Name Role Phone Joseph Taylor Primary Care Provider [phone] REASON FOR VISIT FYI Encounters Encounter Location Date Provider Diagnosis [facility] [address] [place] [address] 11/11/19 Joseph Taylor PLAN OF TREATMENT Next Appt Details Provider Name:Ninoska Lewis, 02/24/2025 01:45:00 PM, [address] [place] [address], [phone],
--- OUTSIDE RECORDS SUMMARY | 2024-11-24 07:36 | XMS_ITS ---
Author Organization Amym[facility] Wilfrid, Address [address] [place] [address] Care Team Providers Care Advertising Project Manager Name Role Phone Joseph Taylor Primary Care Provider [phone] REASON FOR VISIT Message Encounters Encounter Location Date Provider Diagnosis [facility] Wilfr[facility] [address] [place] [address] 11/25/19 Joseph Taylor PLAN OF TREATMENT Next Appt Details Provider Name:Ninoska Lewis, 02/24/2025 01:45:00 PM, [address] [place] [address], [phone],
--- OUTSIDE RECORDS SUMMARY | 2024-12-02 06:45 | XMS_ITS ---
Author Organization [facility], Address [address] [place] [address] Care Team Providers Care Formal Waiter/Waitress Name Role Phone AmyJoseph rose Primary Care [...] Encounter Location Date Provider Diagnosis mary kay [address] [address] 12/02/2024 Joseph Taylor GERD without esophag itis [...] system. There are likely to be multiple fishery division chief inaccuracies despite chart review. PLAN OF TREATMENT [...] system. There are likely to be multiple fishery division chief inaccuracies despite chart review. Pending Test Test Name Order Date Hemoglobin [id number] 12/02/2024 LP+Non-HDL [id number] 12/02/2024 TSH+Free [id number] 12/02/2024 Hepatic Function Panel [id number] 2024 Next Appt Details Follow Up: 3 Months, Reason: Follow up with N[facility] Provider Name:Ninoska Lewis, 02/24/2025 01:45:00 PM, [address] [place] [address], [phone], Progress Notes * Examination Category Sub-Category Detail Notes Category Not es General Examination GENERAL APPEARANCE: in no ac [place] distress, well developed, well nourished HEAD: normocephalic, [...] is planning on having spine injections with [facility] in [facility] but needs clearance. I asked her to bring in the paperwork for us to fill out if needed. It is okay for her to hold Aspirin 81mg for the four days prior to her injection and post injection if advised by MD performing the injection.
--- OUTSIDE RECORDS SUMMARY | 2024-12-03 09:04 | XMS_ITS ---
[facility] Address [address] [place] [address] Care Team Providers Care Director Market Research Name Role Phone Joseph Taylor Primary Care Provider [phone] REASON FOR VISIT Message MEDICATIONS Medication SIG (Take, Route, Fr equency, Duration) Notes Start Date End Date Status CeraVe Psoriasis 2 % 1 application as ne eded Externally Twice a day for 30 days 12/03/2024 Active Encounters Encounter Location Date [facility] [address] [place] [address] 12/04/19 Joseph Taylor PLAN OF TREATMENT Medication Medication Name Sig Start Date Stop Date Notes CeraVe Psoriasis 2 % 1 application as ne eded Externally Twice a day for 30 days 12/03/2024 Next Appt Details Provider Name:Ninoska Lewis, 02/24/2025 01:45:00 PM, [address] [place] [address], [phone],
--- OUTSIDE RECORDS SUMMARY | 2024-12-28 05:08 | XMS_ITS ---
Author Organization [facility], Address [address] [place] [address] Care Team Providers Care Hooker Operator Name Role Phone Joseph Taylor Primary Care Provider REASON FOR VISIT Refills MEDICATIONS Medication SIG (Take, Route, Frequency, Duration) Notes Start Date End Date Status Levothyroxine Sodium 50 MCG 1 tablet in the morning on an empty stomach Orally Once a day for 90 days Active Encounters Encounter Location Date Provider Diagnosis [facility], [address] [address] 12/28/2024 Joseph Taylor Acquired hypothyroid ism E03.9 ASSESSMENTS Encounter Date Diagnosis Assessment Notes Treatment Notes Treatment Clinical Notes Section Notes 12/28/2024 Acquired hypothyroidism (ICD-10 - E03.9) PLAN OF TREATMENT Medication Medication Name Sig Start Date Stop Date Notes Levothyroxine Sodium 50 MCG 1 tablet in the morning on an empty stomach Orally Once a day for 90 days Next Appt Details Provider Name:Ninoska Lewis, 02/24/2025 01:45:00 PM, [address] [place] [address], [phone],
[2025-01-28 14:08] VITALS: BP 124/78; PULSE 78; BMI 37.6
--- NOTE | 2025-01-28 14:08 | MHC.OFFVIS ---
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 Discharge Planner Required: No Accompanied by: Self / Same As Patient Allergies clarithromycin (From BIAXIN) Allergy (Severe, Verified 01/28/25 14:13) FELT ILL acetaminophen (From TYLENOL) Allergy (Unknown, Verified 01/28/25 14:13) UPSET STOMACH albuterol Allergy (Unknown, Verified 01/28/25 14:13) Unknown codeine Allergy (Unknown, Verified 01/28/25 14:13) Unknown duloxetine (DULOXETINE) Allergy (Unknown, Verified 01/28/25 14:13) FEELS ILL naproxen (From ALEVE) Allergy (Unknown, Verified 01/28/25 14:13) FEELS ILL gabapentin Adverse Reaction (Severe, Verified 01/28/25 14:13) very, very sick Medication List - Last Reconciled 01/28/25 by Kunal Alatorre NP atorvastatin 80 mg PO DAILY 30 days Bacillus coagulans (Digestive Advantage Probiotic Gummy) cells PO blood pressure monitor daily As directed, 999days/lifetime blood sugar diagnostic (FreeStyle Lite Strips) test blood sugar two times a day carvedilol 3.125 mg PO BID 30 days cetirizine 10 mg PO DAILY PRN empagliflozin (Jardiance) 25 mg PO DAILY ezetimibe 10 mg PO DAILY fluticasone propionate 50 mcg/actuation 1 spray intranasal Q12H 30 days glimepiride 1 mg PO BID inhalational spacing device (Aerochamber MV spacer) As directed levothyroxine 50 mcg PO DAILY 90 days loperamide mg PO meclizine 25 mg PO Q12H PRN gt-ps-rqxff-lutein-herbal 293 120 mcg-150 mcg -37.5 mg (Alive Women's 50 Plus Gummy) tabs PO nystatin 1 appl topical BID 1 month triamterene-hydrochlorothiazid 75-50 mg 1 tab PO DAILY 30 days walker (Ultra-Light Rollator misc) Rollator Walker with wheels, brakes and seat. Daily As directed. 999 days. HPI Comments Details: This is a 69-year-old female patient coming in for a follow-up visit. Patient with a history of hyperlipidemia, diabetes, hypertension, NSVT, and obesity. Patient also with significant family history of coronary artery disease. Patient was previously seen in the office for reports of chest heaviness and shortness of breath which patient states is still ongoing and can be occurring with exertion as well as at rest. Patient is also reporting palpitations but is denying any dizziness, orthopnea, PND, leg edema, presyncope or syncope. Patient previously was supposed to send in level from PCP's office which was not completed but patient notes that her blood sugars and cholesterol levels have improved significantly. Patient is otherwise reporting compliance with all her medications. [facility] Medical History Distal paresthesia Pulmonary nodule Bronchitis with airway obstruction Sciatica Neuropathy Arthritis High blood pressure Low TSH level Vertigo Surgical History History of shoulder surgery History of plastic surgery History of hip replacement History of delivery Family History Maternal Grandmother Stomach cancer Maternal Grandfather Colon cancer Mother Dementia Hypertension Diabetes Father Parkinsons Diabetes Sister Fatty liver Sister Parkinsons Diabetes Daughter Diabetes Hypertension Lupus Anxiety Depression Son Myocardial infarction Other Mental health disorder Social History Household Members Other:: Now living in an apartment Housing: Apartment Alcohol intake: former Patient Tobacco Use Status: Former Tobacco user e-Cigarette/Vaping Use: Never Used Second Hand Smoke Exposure: No service: No Current occupational status: disabled Current occupational exposures/hazards: No Cognitive needs: No Hearing needs: No Vision needs: No Review of Systems Const Denies daytime sleepiness, Denies difficulty sleeping, Denies snoring, Denies stops breathing during sleep and Denies weakness Card Denies chest pain, Denies rapid heart rate, Denies irregular heart rhythm, Denies claudication, Denies leg edema, Denies lightheadedness, Denies palpitations, Denies dyspnea, Denies dyspnea on exertion, Denies orthopnea, Denies paroxysmal nocturnal dyspnea and Denies slow heart rate Resp Denies cough, Denies dyspnea, Denies dyspnea on exertion and Denies snoring GI Reports no additional complaints, Denies hematochezia, Denies change in stool character and Denies dyspepsia Musc Denies abnormal gait, Denies muscle weakness and Denies numbness Neuro Denies abnormal gait, Denies numbness and Denies weakness Endo Denies palpitations Physical Exam Vital Signs: Last Vital Signs Pulse 78 01/28/25 14:08 BP 124/78 01/28/25 14:08 BMI result Body Mass Index 37.6 Const General: cooperative, healthy appearing, comfortable and no acute distress Orientation/consciousness: patient oriented x3 HEENT Head: Yes normal to inspection Neck Neck: Yes normal visual inspection, Yes trachea midline and Yes supple Chest Chest palpation & inspection: normal inspection of the chest Resp Effort & Inspection: normal respiratory effort Auscultation: clear to auscultation bilaterally, no crackles, no rales, no rhonchi and no wheezes Cardio Jugular venous distension: no JVD Palpation: normal PMI Rate: regular rate Rhythm: regular rhythm Heart sounds: S1 normal heart sound present, S2 normal heart sound present, no click, no gallops, no murmurs and no rubs Peripheral pulses: Peripheral pulses 2+ throughout GI Inspection: Yes normal to inspection Palpation (GI): Soft to palpation Auscultation: normal bowel sounds Skin General skin exam: no rashes or lesions noted Neuro General: patient oriented x3 Extrem General: Yes normal to inspection, No no pedal edema and No calf tenderness Psych Appearance: grossly normal Mental Status: mental status grossly normal Speech and movement: Normal speech and movement present Assessment & Plan Assessment & Plan (1) Chest pain: Code(s): R07.9 - Chest pain, unspecified Category: Medical Plan: 11/05/2024-patient underwent an echo study at [facility] during her hospital admission that showed normal LV systolic function with an ejection fraction between 65-70%, mildly increased LV wall thickness, with no focal wall motion abnormalities or significant valvular disease. 01/07/2025-Holter study showed a underlying normal sinus rhythm with rare supraventricular with showed runs and ventricular ectopies- rare couplets. Patient's symptoms correlated with ventricular ectopy. 01/07/2025-patient underwent a myocardial perfusion study with a vasodilating agent that showed no clear evidence of ischemia or infarction. Given her ongoing reports of chest discomfort and multiple risk factors, we will pursue a coronary CTA to look for coronary artery disease. Continue high-dose statin and Zetia therapy with an LDL goal less than 70. No recent lipid profile. Patient states her blood sugars and her cholesterol levels are improved and was supposed to have her labs faxed over from her PCP's. Since we still have no records, we will update lipid panel. Advised patient to seek ER care in case of exertional chest pain not resolved with rest. (2) NSVT (nonsustained ventricular tachycardia): Code(s): I47.29 - Other ventricular tachycardia Category: Medical Plan: As above. (3) Hyperlipidemia: Code(s): E78.5 - Hyperlipidemia, unspecified Category: Medical Plan: As above. (4) Diabetes type 2, controlled: Code(s): E11.9 - Type 2 diabetes mellitus without complications Category: Medical Plan: Continue aggressive diabetes management with an A1c goal less than 7%, followed by PCP. (5) Obesity (BMI 30-39.9): Code(s): E66.9 - Obesity, unspecified Category: Medical Plan: As above. Advised heart healthy diet, regular exercise, weight loss, med compliance, and aggressive management of vascular risk factors. Follow up after completion of the test. In the interim, patient will call the office with any concerns or change in symptoms. This note was generated using voice recognition software. While every effort has been made to ensure accuracy and proper protein scientist, there may be occasional errors that could affect the content or meaning of the described symptoms. Orders: Orders Lipid Panel Today R07.9 - Chest pain, unspecified CT Cardiac Coronary Angio Today E78.5 - Hyperlipidemia, unspecified, R07.9 - Chest pain, unspecified Basic Metabolic Panel Today R07.9 - Chest pain, unspecified Coding Level of Care Code Est Pt Level 4 (79982) Complex EM visit Add On G2211 Diagnoses Chest pain R07.9 NSVT (nonsustained ventricular tachycardia) I47.29 Hyperlipidemia E78.5 Diabetes type 2, controlled E11.9 Obesity (BMI 30-39.9) E66.9 Time Spent (min) 32 Comment Time spent in reviewing the chart, test results, assessment, counseling and documentation.
--- OUTSIDE RECORDS SUMMARY | 2025-01-28 17:56 | XMS_ITS | Patient Health Record ---
Author Organization Brandon Yuen Address [address] [place] [address] Care Team Providers Care Crown And Bridge Technician Name Role Phone Joseph Taylor Primary Care Provider [phone] Ninoska Lewis Unavailable [phone] ALLERGIES Allergen (clinical drug ingredient) Drug/Non Drug [...] RESULTS Component Value Reference Range Notes Hemoglobin [id number] Reviewed date:06/05/2024 07:06:08 AM Interpretation: Performing Lab:[facility] [place], [address], Phone - [phone], Director - Sohan Notes/Report: Hemoglobin A1c 7.2 4.8-5.6 % . Prediabetes: 5.7 - 6.4 Diabetes: >6.4 Glycemic control for adults with diabetes: <7.0 Lipid Panel-[id number] Reviewed date:06/05/2024 07:06:08 AM Interpretation: Performing Lab:[facility] [place], [address] [facility], [place], Phone - [phone], Director - Sohan Notes/Report: Cholesterol, Total 219 100-199 mg/dL Triglycerides 382 0-149 mg/dL HDL Cholesterol 33 >39 mg/dL VLDL Cholesterol Jeff 67 5-40 mg/dL LDL Chol Calc ([facility]) 119 0-99 mg/dL LDL Calc Comment: Comp. Metabolic Panel (13)-[id number] Reviewed date:06/05/2024 07:06:08 AM Interpretation: Performing Lab:[facility] [place], [address] [place] [address], Phone - [phone], Director - Sohan Notes/Report: Glucose 109 70-99 mg/dL BUN 21 [...] IU/L AST (SGOT) 34 0-40 IU/L Hemoglobin [id number] Reviewed date:11/03/2024 08:32:21 AM Interpretation: Performing Lab:[facility] [place], [address] [place] [address], Phone - [phone], Director - Sohan Notes/Report: Hemoglobin A1c 7.9 4.8-5.6 % . Prediabetes: 5.7 - 6.4 Diabetes: >6.4 Glycemic control for adults with diabetes: <7.0 TSH+Free [id number] Reviewed date:11/03/2024 08:32:21 AM Interpretation: Performing Lab:[facility] [place], [address] [place] [address], Phone - [phone], Director - Ralphdry Notes/Report: TSH 8.660 0.450-4.500 uIU/mL T4,Free(Direct) 1.01 0.82-1.77 ng/dL Lipid Panel-[id number] Reviewed date:11/03/2024 08:32:21 AM Interpretation: Performing Lab:[facility] [place], [address] [place] [address], Phone - [phone], Director - Sohan Notes/Report: Cholesterol, Total 173 100-199 mg/dL Triglycerides 215 0-149 mg/dL HDL Cholesterol 43 >39 mg/dL VLDL Cholesterol Jeff 37 5-40 mg/dL LDL Chol Calc ([facility]) 93 0-99 mg/dL LDL Calc Comment: Comp. Metabolic Panel (13)-3 02805 Reviewed date:11/03/2024 08:32:21 AM Interpretation: Performing Lab:[facility] [place], [address] [facility], [place], Phone - [phone], Director - MNMartha Notes/Report: Glucose 137 70-99 mg/dL BUN 19 [...] 44-121 IU/L AST (SGOT) 21 0-40 IU/L [id number] Reviewed date:11/03/2024 08:32:21 AM Interpretation: Performing Lab:[facility] [place], [address] [facility], [place], Phone - [phone], Director - MNMartha Notes/Report: NT-proBNP 69 0-301 pg/mL The following cut-points have been suggested for the use of proBNP for the diagnostic evaluation of heart failure (HF) in patients with acute dyspnea: . Modality Age Optimal Cut (years) Point Diagnosis (rule in HF) <50 450 pg/mL 50 - 75 900 pg/mL >75 1800 pg/mL Exclusion (rule out HF) Age independent 300 pg/mL Sedimentation Rate-Herrera n-[id number] Reviewed date:09/09/2024 02:01:30 PM Interpretation: Performing Lab:[facility], [address], Phone - [phone], Director - Sohan Notes/Report: Sedimentation Rate-Westergren 21 0-40 mm/hr Lyme Disease Serology w/Refl ex-[id number] Reviewed date:09/09/2024 02:01:30 PM Interpretation: Performing Lab:[facility] [place], [address] [place] [address], [place], Phone - [phone], Director - Sohan Notes/Report: Lyme Total Antibody [...] is recommended. CBC with Diff, Platelet, NLR -[id number] Reviewed date:09/09/2024 02:01:30 PM Interpretation: Performing Lab:[facility] [place], [address] [place] [address], [place], Phone - [phone], Director - Sohan Notes/Report: WBC 7.9 3.4-10.8 [...] Notes [facility] , , F: [phone] Referral Priority Routine Referral Appointment Date 09/29/2024 [...] for 90 Days Active Glimepiride 1 MG TAKE 1 TABLET BY MOUTH TWICE DAILY IN THE MORNING AND IN THE AFTERNOON for 90 Active Jardiance 25 MG 1 tablet Orally [...] Notes Problem Postmenopausal bleeding (N95.0) Active confirmed 70542455 Problem Mixed hyperlipidemia (E78.2) Active confirmed 753314112 Problem Essential hypertension (I10) Active confirmed 57566029 Problem Acquired hypothyroidism (E03.9) Active confirmed 084027099 Problem Plaque psoriasis (L40.0) Active confirmed 348099592 Problem Type 2 diabetes mellitus without complication, without long-term current use of insulin (E11.9) Active confirmed 682784778 Problem Non-seasonal allergic rhinitis, unspecified trigger (J30.89) Active confirmed 13645786 Problem GERD without esophagitis (K21.9) Active confirmed 227757854 Problem Stage 3a chronic kidney disease (N18.31) Active confirmed 894029195 Problem Acute intractable tension-type headache (G44.201) Active confirmed 529204675 VITAL SIGNS Heart Rate 72 /min 12/02/2024 Blood pressure diastolic 70 mm Hg 12/02/2024 Height 64 in 12/02/2024 Blood pressure systolic 110 mm Hg 12/02/2024 Weight 210.8 lbs 12/02/2024 BMI 36.18 kg/m2 12/02/2024 Encounters Encounter Location Date Provider Diagnosis Brandon Yuen [address] [address] 02/04/2024 [facility] [address] [address] 02/04/2024 Joseph Taylor Essential hypertensi on I10 ; Type 2 diabetes mellitus without complication, without long-term current use of insulin E11.9 ; Mixed hyperlipidemia E78.2 ; Acquired hypothyroidism E03.9 and Non-seasonal allergic rhinitis, unspecified trigger J30.89 [facility], [address] [address] 02/13/2024 [facility], [address] [address] 04/06/2024 Joseph Taylor Rib pain on right si de R07.81 [facility], [address] [place] [address] 05/06/2024 [facility], [address] [address] 05/20/2024 [facility], [address] [address] 05/21/2024 [facility], [address] [address] [facility]01[facility] [address] [place] [address] 06/03/2024 Joseph Taylor Essential hypertensi on I10 ; Type 2 diabetes mellitus without complication, without long-term current use of insulin E11.9 ; Mixed hyperlipidemia E78.2 ; Acquired hypothyroidism E03.9 ; Non-seasonal allergic rhinitis, unspecified trigger J30.89 and Benign paroxysmal positional vertigo, unspecified laterality H81.10 [facility], [address] [address] 06/15/2024 Joseph Taylor Essential hypertensi on I10 ; Type 2 diabetes mellitus without complication, without long-term current use of insulin E11.9 ; Mixed hyperlipidemia E78.2 ; Acquired hypothyroidism E03.9 ; Non-seasonal allergic rhinitis, unspecified trigger J30.89 and Benign paroxysmal positional vertigo, unspecified laterality H81.10 [facility], [address] [address] 08/05/2024 Joseph Taylor Essential hypertensi on I10 ; Type 2 diabetes mellitus without complication, without long-term current use of insulin E11.9 ; Mixed hyperlipidemia E78.2 ; Acquired hypothyroidism E03.9 ; Non-seasonal allergic rhinitis, unspecified trigger J30.89 ; Benign paroxysmal positional vertigo, unspecified laterality H81.10 ; Stage 3a chronic kidney disease N18.31 ; Facial skin lesion L98.9 and Seborrheic keratosis L82.1 [facility], [address] [address] 09/01/2024 Joseph [facility], [address] [address] 09/08/2024 Joseph Taylor Plaque psoriasis L40 .[address] [address] 09/10/2024 Joseph Taylor Acute abdomen R10.0 and Postmenopausal bleeding N95.[address] [address] 09/11/2024 Joseph [facility], [address] [address] 09/11/2024 [facility], [address] [address] 09/30/2024 Joseph Taylor Plaque psoriasis L40 .0 and Pruritus L29.[address] [address] 10/28/2024 Joseph [facility], [address] [address] 11/04/2024 Joseph Taylor GERD without esophag itis K21.9 ; Acute intractable tension-type headache G44.201 ; Essential hypertension I10 ; Type 2 diabetes mellitus without complication, without long-term current use of insulin E11.9 ; Mixed hyperlipidemia E78.2 ; Acquired hypothyroidism E03.9 and Non-seasonal allergic rhinitis, unspecified trigger J30.[address] [address] 11/04/2024 Ninoska Lewis [facility], [address] [address] 11/10/2024 Joseph [facility], [address] [address] 11/10/2024 Joseph [facility], [address] [address] 11/24/2024 Joseph Taylor [address] [address] 12/02/2024 Joseph Taylor GERD without esophag itis K21.9 ; Acute intractable tension-type headache G44.201 ; Essential hypertension I10 ; Type 2 diabetes mellitus without complication, without long-term current use of insulin E11.9 ; Mixed hyperlipidemia E78.2 ; Acquired hypothyroidism E03.9 and Non-seasonal allergic rhinitis, unspecified trigger J30.89 [facility], [address] [address] 12/03/2024 Joseph Taylor [address] [address] 12/28/2024 Joseph Taylor Acquired hypothyroid ism E03.9 ASSESSMENTS Encounter Date Diagnosis Assessment Notes Treatment Notes Treatment Clinical Notes Section Notes 11/04/2024 Acute intractable tension-type headache (ICD-10 - G44.201) Multiple treatment options discussed with patient but she refused. 11/04/2024 GERD without esophagitis (ICD-10 - K21.9) 12/28/2024 Acquired hypothyroidism (ICD-10 - E03.9) 02/04/2024 Type 2 diabetes mellitus without complication, without long-term current use of insulin (ICD-10 - E11.9) 02/04/2024 Essential hypertension (ICD-10 - I10) 06/03/2024 Type 2 diabetes mellitus without complication, without long-term current use of insulin (ICD-10 - E11.9) 06/03/2024 Essential hypertension (ICD-10 - I10) 06/15/2024 Essential hypertension (ICD-10 - I10) 08/05/2024 Type 2 diabetes mellitus without complication, without long-term current use of insulin (ICD-10 - E11.9) 08/05/2024 Essential hypertension (ICD-10 - I10) 09/10/2024 Acute abdomen (ICD-10 - R10.0) Patient was advised to go to emergency room immediately to rule out appendicitis. 09/10/2024 Postmenopausal bleeding (ICD-10 - N95.0) Patient explained that she needs to see her earth moving machine operator for endometrial biopsy to rule out uterine cancer. 12/02/2024 GERD without esophagitis (ICD-10 - K21.9) Using OTC medication that has improved symptoms. 09/30/2024 Plaque psoriasis (ICD-10 - L40.0) 09/30/2024 Pruritus (ICD-10 - L29.9) 09/08/2024 Plaque psoriasis (ICD-10 - L40.0) 04/06/2024 Rib pain on right side (ICD-10 [...] prescription in lesser amount. [place] PAT verified. 12/02/2024 Essential hypertension (ICD-10 - I10) 11/04/2024 Essential hypertension (ICD-10 - I10) 12/02/2024 Acute intractable tension-type headache (ICD-10 - G44.201) Multiple treatment options discussed with patient but she refused. 08/05/2024 Mixed hyperlipidemia (ICD-10 - E78.2) 06/15/2024 Type 2 diabetes mellitus without complication, without long-term current use of insulin (ICD-10 - E11.9) 06/03/2024 Mixed hyperlipidemia (ICD-10 - E78.2) 02/04/2024 Mixed hyperlipidemia (ICD-10 - E78.2) 11/04/2024 Type 2 diabetes mellitus without complication, without long-term current use of insulin (ICD-10 - E11.9) 12/02/2024 Type 2 diabetes mellitus without complication, without long-term current use of insulin (ICD-10 - E11.9) 08/05/2024 Acquired hypothyroidism (ICD-10 - E03.9) 06/15/2024 Mixed hyperlipidemia (ICD-10 - E78.2) 06/03/2024 Acquired hypothyroidism (ICD-10 - E03.9) 02/04/2024 Acquired hypothyroidism (ICD-10 - E03.9) 11/04/2024 Mixed hyperlipidemia (ICD-10 - E78.2) 02/04/2024 Non-seasonal allergic rhinitis, unspecified trigger (ICD-10 - J30.89) 06/03/2024 Non-seasonal allergic rhinitis, unspecified trigger (ICD-10 - J30.89) 06/15/2024 Acquired hypothyroidism (ICD-10 - E03.9) 08/05/2024 Non-seasonal allergic rhinitis, unspecified trigger (ICD-10 - J30.89) 12/02/2024 Mixed hyperlipidemia (ICD-10 - E78.2) 06/03/2024 Benign paroxysmal positional vertigo, unspecified laterality (ICD-10 - H81.10) 06/15/2024 Non-seasonal allergic rhinitis, unspecified trigger (ICD-10 - J30.89) 08/05/2024 Benign paroxysmal positional vertigo, unspecified laterality (ICD-10 - H81.10) 11/04/2024 Acquired hypothyroidism (ICD-10 - E03.9) 12/02/2024 Acquired hypothyroidism (ICD-10 - E03.9) 06/15/2024 Benign paroxysmal positional vertigo, unspecified laterality (ICD-10 - H81.10) 08/05/2024 Stage 3a chronic kidney disease (ICD-10 - N18.31) 12/02/2024 Non-seasonal allergic rhinitis, unspecified trigger (ICD-10 - J30.89) 11/04/2024 Non-seasonal allergic rhinitis, unspecified trigger (ICD-10 - J30.89) 08/05/2024 Facial skin lesion (ICD-10 - L98.9) 08/05/2024 Seborrheic keratosis (ICD-10 - L82.1) 11/04/2024 Other This chart has been transcribed by a computerized dictation system. There are likely to be multiple landscape laborer inaccuracies despite chart review. 02/04/2024 Other This chart has been transcribed by a computerized dictation system. There are likely to be multiple landscape laborer inaccuracies despite chart review. 06/03/2024 Other This chart has been transcribed by a computerized dictation system. There are likely to be multiple landscape laborer inaccuracies despite chart review. 06/15/2024 Other This chart has been transcribed by a computerized dictation system. There are likely to be multiple landscape laborer inaccuracies despite chart review. 08/05/2024 Other This chart has been transcribed by a computerized dictation system. There are likely to be multiple landscape laborer inaccuracies despite chart review. 09/10/2024 Other This chart has been transcribed by a computerized dictation system. There are likely to be multiple landscape laborer inaccuracies despite chart review. 12/02/2024 Other This chart has been transcribed by a computerized dictation system. There are likely to be multiple landscape laborer inaccuracies despite chart review. 04/06/2024 Other This chart has been transcribed by a computerized dictation system. There are likely to be multiple landscape laborer inaccuracies despite chart review. 09/08/2024 Other This chart has been transcribed by a computerized dictation system. There are likely to be multiple landscape laborer inaccuracies despite chart review. 09/30/2024 Other This chart has been transcribed by a computerized dictation system. There are likely to be multiple landscape laborer inaccuracies despite chart review. 10/28/2024 Other This chart has been transcribed by a computerized dictation system. There are likely to be multiple landscape laborer inaccuracies despite chart review. PLAN OF TREATMENT Pending Test Test Name Order Date Ultrasound : Right Upper Quadrant 2023 X ray : Rib series, right 04/06/2024 MAMMOGRAM, SCREENING 09/17/2023 Ultrasound : Kidneys 09/17/2023 *EKG 12/19/2023 Hemoglobin [id number] 10/17/2023 Hemoglobin [id number] 12/02/2024 LP+Non-HDL Cholesterol-707116 12/02/2024 TSH+Free [id number] 12/02/2024 Hepatic Function Panel [id number] 2024 Hepatic Function Panel ([id number] 2023 Lipid Panel-[id number] 10/17/2023 Next Appt Details Provider Name:Ninoska Lewis, 02/24/2025 01:45:00 PM, [address] [place], [address], Insurance Providers Payer Name Payer Address Payer Phone Subscriber Number Group Number Insured Name Patient Relationship to Insured Coverage Start Date Coverage End Date [employer] [address] [place] [address] [id number] Sylwia Correia Self - patient [facility] the [facility] [address] [place] [address] [id number] Sylwia Correia Self - patient is the [...]
--- OUTSIDE RECORDS SUMMARY | 2025-01-28 17:57 | XMS_ITS | Clinical Summary ---
Author Organization [facility] 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
== END 2025-01-28 14:57 | disposition home or self-care (01) ==
LOC: HO.HCS 14:07
PROVIDERS: PCP Internal Medicine
DX: R07.9 Chest pain, unspecified (principal); I47.29 Other ventricular tachycardia; E78.5 Hyperlipidemia, unspecified; E11.9 Type 2 diabetes mellitus without complications; E66.9 Obesity, unspecified
CPT/HCPCS: 99214; G2211

== ENCOUNTER → 2025-01-28 14:07 | Outpatient (BNVA) | payer MEDICARE, MEDICAID, SELFPAY | PROVIDERS: PCP Internal Medicine | DX: I10 Essential (primary) hypertension (principal); R07.9 Chest pain, unspecified; I47.29 Other ventricular tachycardia; E78.5 Hyperlipidemia, unspecified; E66.9 Obesity, unspecified | CPT/HCPCS: 99212 ==

== ENCOUNTER 2025-03-23 13:24 | Outpatient (REF) | payer MEDICARE, MEDICAID, SELFPAY ==
--- OUTSIDE RECORDS SUMMARY | 2024-09-11 05:30 | XMS_ITS ---
Author Organization [facility], Address [address] [place] [id number] Care Team Providers Care Card Scraper Name Role Phone Joseph Taylor Primary Care Provider REASON FOR VISIT (IN OFFICE) Lesion on Face Encounters Encounter Location Date Provider Diagnosis [facility], [address] [phone] 09/12/19 25 Joseph Taylor Plan Of Treatment Next Appt Details Provider Name:Ninoska Lewis, 05/24/2025 11:00:00 AM, [address] [place] [address], [phone], Progress Notes * Sylwia CORREIADOB:[birth year] (69 yo F)Acc No.[id number]:09/11/2024 Patient: Sylwia Farr Provider: Kwaku Taylor M.D. :1955 A ge:69 Y S ex:Female Date:09/11/2024 Address:[address] [place] [id number] Billing Information: * Procedure Codes: * The named appointment provid er may or may not be the originator of this progress note, and it is not deemed complete until electronically signed by the appointment provider. Sign off status: Pending * Provider: Kwaku Taylor M.D. Date: 0 09/11/2024 Generated for Margareti ng/Ethel/eTransmitting on: 1 05/24/2024 05:28 PM EST
--- OUTSIDE RECORDS SUMMARY | 2024-10-28 08:15 | XMS_ITS ---
Author Organization [facility], Address [address] [place] [address] Care Team Providers Care Project Leader Name Role Phone [facility] Joseph Primary Care Provider [phone] Allergies Allergen (clinical drug ingredient) Drug/Non Drug Allergy documented on EMR Reaction Allergy Type Onset Date Status Biaxin Unknown Drug Allergy Active acetaminophen Tylenol Unknown Drug Allergy Act gerard codeine Codeine Unknown Drug Allergy Active duloxetine Duloxetine Unknown Drug Allergy Activ e gabapentin Gabapentin Unknown Drug Allergy Activ e naproxen Naproxen Unknown Drug Allergy Active REASON FOR VISIT (IN OFFICE), Sick Visit Medications Medication SIG (Take, Route, Frequency, Duration) Notes Start Date End Date Status Carvedilol 3.125 MG Tablet TAKE 1 TABLET BY MOUTH TWICE DAILY WITH FOOD; Duration: 90 Active Jardiance 25 MG Tablet TAKE 1 TABLET BY MOUTH DAILY; Duration: 90 Active Loperamide HCl 2 MG Capsule TAKE 1 CAPSU LE BY MOUTH EVERY 4 HOURS NEEDED FOR LOOSE STOOLS Oral; Duration: 60 Active Nystatin 030355 UNIT/GM Cream 1 application Externally Twice a day; Duration: 30 days 01/03/2024 Active Ezetimibe 10 MG Tablet TAKE 1 TABLET BY MOUTH DAILY; Duration: 90 Active Atorvastatin Calcium 80 MG Tablet 1 tablet Orally Once a day; Duration: 90 Days Active Lidoderm 5 % Patch 1 patch remove after 12 hours Externally Once a day; Duration: 10 days 04/06/2024 Active traMADol HCl 50 MG Tablet 1 tablet as ne eded Orally every 6 hrs partial fill upon request; Duration: 5 days 04/06/2024 Active Pantoprazole Sodium 40 MG Tablet Delayed Release Oral; Duration: 90 Active Amitriptyline HCl 25 MG Tablet TAKE 1 TABLET BY MOUTH AT BEDTIME Oral; Duration: 30 Active Fluticasone Propionate 50 MCG/ACT Suspension 1 spray in each nostril Nasally Once a day; Duration: 30 days Active Meclizine HCl 25 MG Tablet 1 tablet as n eeded Orally every 12 hrs; Duration: 14 days Active metFORMIN HCl 500 MG Tablet 1 tablet wit h a meal Orally Twice a day; Duration: 90 Days Active Losartan Potassium 100 MG Tablet TAKE 1 TABLET BY MOUTH DAILY Oral Active Loratadine 10 MG Tablet 1 tablet Orally Once a day; Duration: 90 Days Active traMADol HCl 50 MG Tablet 1 tablet as ne eded Orally every 6 hrs partial fill upon request; Duration: 3 days 09/11/2024 Active Otezla 10 & 20 & 30 MG Tablet Therapy Pack as directed Orally Twice a day 09/30/2024 Active Triamcinolone Acetonide 0.1 % Cream 1 application Externally Twice a day 01/03/2024 Active Levothyroxine Sodium 50 MCG Tablet TAKE 1 TABLET BY MOUTH DAILY; Duration: 90 Active Triamterene-HCTZ 75-50 MG Tablet TAKE 1 TABLET BY MOUTH DAILY IN THE MORNING; Duration: 90 Active Glimepiride 1 MG Tablet TAKE 1 TABLET BY MOUTH TWICE DAILY IN THE MORNING AND IN THE AFTERNOON; Duration: 90 Active Clobetasol Propionate 0.05 % Cream 1 application Externally Twice a day; Duration: 30 days 09/08/2024 Active Encounters Encounter Location Date Provider Diagnosis [facility] [address] [place] [address] 10/29/19 Joseph Taylor Assessments Encounter Date Diagnosis (ICD Code) Assessment Notes Treatment Notes Treatment Clinical Notes Section Notes 10/28/2024 Other This chart has been transcribed by a computerized dictation system. There are likely to be multiple packer inspector inaccuracies despite chart review. Plan Of Treatment Treatment Notes Assessment Notes Other This chart has been transcribed by a computerized dictation system. There are likely to be multiple packer inspector inaccuracies despite chart review. Next Appt Details Provider Name:Ninoska Lewis, 05/24/2025 11:00:00 AM, [address] [place] [address], [phone], Progress Notes * Sylwia [birth year]VISDOB:[birth year] (69 yo F)Acc No.[id number]:10/28/2024 Progress Notes Patient: Sylwia Farr Provider: Milton Taylor M.D. :1955 A ge:69 Y S ex:Female Date:10/28/2024 Address:[address] [place] [address] HOME [phone] Subjective: * Chief Complaints: * ( IN OFFICE), Sick Visit * Medical History: No Medical History Documented Medical History Verified * Surgical History: C-sections 6 Tuboplasty Diagnostic laparoscopy 3 Hip replacement rightr twice left once Surgery for complications of Crohn's disease Arthroscopic surgery left shoulder Hernia repair 2 Surgical History verified. * Hospitalization/Major Diagno stic Procedure: Denies Past Hospitalization. Hospitalization Verified. * Family History: F ather: diagnosed with Diabetes mellitus without mention of complication, type II or unspecified type, not stated as uncontrolled, Hypertension. M other: diagnosed with Diabetes mellitus without mention of complication, type II or unspecified type, not stated as uncontrolled, Hypertension. 2 brother(s) , 2 sister(s) . 4 son(s) , 2 daughter(s) . . F amily History Verified.. * Social History: Social History Verified. No Social History documented. * Medications: T akingLosartan Potassium 100 MG Tablet TAKE 1 TABLET BY MOUTH DAILY Oral Loratadine 10 MG Tablet 1 tablet Orally Once a day Fluticasone Propionate 50 MCG/ACT Suspension 1 spray in each nostril Nasally Once a day Meclizine HCl 25 MG Tablet 1 tablet as needed Orally every 12 hrs metFORMIN HCl 500 MG Tablet 1 tablet with a meal Orally Twice a day Atorvastatin Calcium 80 MG Tablet 1 tablet Orally Once a day Lidoderm 5 % Patch 1 patch remove after 12 hours Externally Once a day traMADol HCl 50 MG Tablet 1 tablet as needed Orally every 6 hrs partial fill upon request Pantoprazole Sodium 40 MG Tablet Delayed Release Oral Amitriptyline HCl 25 MG Tablet TAKE 1 TABLET BY MOUTH AT BEDTIME Oral Loperamide HCl 2 MG Capsule TAKE 1 CAPSULE BY MOUTH EVERY 4 HOURS NEEDED FOR LOOSE STOOLS Oral Nystatin 333575 UNIT/GM Cream 1 application Externally Twice a day Ezetimibe 10 MG Tablet TAKE 1 TABLET BY MOUTH DAILY Carvedilol 3.125 MG Tablet TAKE 1 TABLET BY MOUTH TWICE DAILY WITH FOOD Jardiance 25 MG Tablet TAKE 1 TABLET BY MOUTH DAILY Glimepiride 1 MG Tablet TAKE 1 TABLET BY MOUTH TWICE DAILY IN THE MORNING AND IN THE AFTERNOON Clobetasol Propionate 0.05 % Cream 1 application Externally Twice a day traMADol HCl 50 MG Tablet 1 tablet as needed Orally every 6 hrs partial fill upon request Otezla 10 & 20 & 30 MG Tablet Therapy Pack as directed Orally Twice a day Triamcinolone Acetonide 0.1 % Cream 1 application Externally Twice a day Levothyroxine Sodium 50 MCG Tablet TAKE 1 TABLET BY MOUTH DAILY Triamterene-HCTZ 75-50 MG Tablet TAKE 1 TABLET BY MOUTH DAILY IN THE MORNING Medication List reviewed and reconciled with the patientTaking Losartan Potassium 100 MG Tablet TAKE 1 TABLET BY MOUTH DAILY Oral Taking Loratadine 10 MG Tablet 1 tablet Orally Once a day Taking Fluticasone Propionate 50 MCG/ACT Suspension 1 spray in each nostril Nasally Once a day Taking Meclizine HCl 25 MG Tablet 1 tablet as needed Orally every 12 hrs Taking metFORMIN HCl 500 MG Tablet 1 tablet with a meal Orally Twice a day Taking Atorvastatin Calcium 80 MG Tablet 1 tablet Orally Once a day Taking Lidoderm 5 % Patch 1 patch remove after 12 hours Externally Once a day Taking traMADol HCl 50 MG Tablet 1 tablet as needed Orally every 6 hrs partial fill upon request Taking Pantoprazole Sodium 40 MG Tablet Delayed Release Oral Taking Amitriptyline HCl 25 MG Tablet TAKE 1 TABLET BY MOUTH AT BEDTIME Oral Taking Loperamide HCl 2 MG Capsule TAKE 1 CAPSULE BY MOUTH EVERY 4 HOURS NEEDED FOR LOOSE STOOLS Oral Taking Nystatin 071544 UNIT/GM Cream 1 application Externally Twice a day Taking Ezetimibe 10 MG Tablet TAKE 1 TABLET BY MOUTH DAILY Taking Carvedilol 3.125 MG Tablet TAKE 1 TABLET BY MOUTH TWICE DAILY WITH FOOD Taking Jardiance 25 MG Tablet TAKE 1 TABLET BY MOUTH DAILY Taking Glimepiride 1 MG Tablet TAKE 1 TABLET BY MOUTH TWICE DAILY IN THE MORNING AND IN THE AFTERNOON Taking Clobetasol Propionate 0.05 % Cream 1 application Externally Twice a day Taking traMADol HCl 50 MG Tablet 1 tablet as needed Orally every 6 hrs partial fill upon request Taking Otezla 10 & 20 & 30 MG Tablet Therapy Pack as directed Orally Twice a day Taking Triamcinolone Acetonide 0.1 % Cream 1 application Externally Twice a day Taking Levothyroxine Sodium 50 MCG Tablet TAKE 1 TABLET BY MOUTH DAILY Taking Triamterene-HCTZ 75-50 MG Tablet TAKE 1 TABLET BY MOUTH DAILY IN THE MORNING Medication List reviewed and reconciled with the patient * Allergies: B iaxinGabapentinNaproxenDuloxetineTylenolCodeineyesAllergies Verified. Plan: * Treatment: * The named appointment provid er may or may not be the originator of this progress note, and it is not deemed complete until electronically signed by the appointment provider. Sign off status: Pending * Provider: Milton Taylor M.D. Date: 0 10/28/2024 Generated for Robin talley/Ethel/Viktoriaitting on: 1 05/24/2024 05:28 PM EST
--- OUTSIDE RECORDS SUMMARY | 2025-02-24 08:45 | XMS_ITS ---
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 Name Role Phone AmyJoseph rose Primary Care Provider Allergies Allergen (clinical drug ingredient) Drug/Non Drug [...] REASON FOR VISIT (IN OFFICE), Follow Up Medications Medication SIG (Take, Route, Frequency, Duration) Notes Start Date End Date Status Triamterene-HCTZ 75-50 MG Tablet TAKE 1 TABLET BY MOUTH DAILY Oral I10,Unavailabl e Active Levothyroxine Sodium 50 MCG Tablet TAKE 1 TABLET BY MOUTH DAILY; Duration: 90 Active Losartan Potassium 50 MG Tablet TAKE 1 TABLET BY MOUTH DAILY Orally Active Clobetasol Propionate 0.05 % Cream 1 application Externally Twice a day; Duration: 30 days 09/08/2024 Active Triamterene-HCTZ 75-50 MG Tablet TAKE 1 TABLET BY MOUTH DAILY IN THE MORNING; Duration: 90 Active Glimepiride 1 MG Tablet 1 tablet in the morning and afternoon Orally Twice a day; Duration: 90 Days Active Jardiance 25 MG Tablet 1 tablet Orally O nce a day; Duration: 90 Days Active Carvedilol 3.125 MG Tablet TAKE 1 TABLET BY MOUTH TWICE DAILY Oral Active Amitriptyline HCl 25 MG Tablet TAKE 1 TABLET BY MOUTH AT BEDTIME Oral Active Ezetimibe 10 MG Tablet 1 tablet Orally O nce a day; Duration: 90 Days Active Jardiance 25 MG Tablet TAKE 1 TABLET BY MOUTH DAILY; Duration: 90 Active Levothyroxine Sodium 50 MCG Tablet TAKE 1 TABLET BY MOUTH DAILY Oral Active Fluticasone Propionate 50 MCG/ACT Suspension 1 spray in each nostril Nasally Once a day; Duration: 30 days Active Loratadine 10 MG Tablet 1 tablet Orally Once a day; Duration: 90 Days Active Atorvastatin Calcium 80 MG Tablet 1 tablet Orally Once a day; Duration: 90 Days Active Budesonide-Formoterol Fumarate 80-4.5 MCG/ACT Aerosol 1 inhalation Inhalation Twice a day; Duration: 30 days 02/08/2025 Active Advair Diskus 100-50 MCG/ACT Aerosol Powder Breath Activated 1 puff Inhalation Twice a day; Duration: 30 days 02/05/2025 Active Levalbuterol HCl 0.63 MG/3ML Nebulization Solution 3 ml as needed Inhalation every 8 hrs; Duration: 30 02/05/2025 Active Nebulizer/Tubing/Mouthp iece - Kit as directed Externally Four times a day; Duration: 30 02/08/2025 Active Nebulizer - Miscellaneous as directed Externally Four times a day; Duration: 30 days 02/08/2025 Active CeraVe Psoriasis 2 % Cream 1 application as needed Externally Twice a day; Duration: 30 days 12/03/2024 Active Carvedilol 3.125 MG Tablet TAKE 1 TABLET BY MOUTH TWICE DAILY WITH FOOD; Duration: 90 Active Glimepiride 1 MG Tablet TAKE 1 TABLET BY MOUTH TWICE DAILY IN THE MORNING AND IN THE AFTERNOON; Duration: 90 Active Encounters Encounter Location Date Provider Diagnosis [address] [id number] 02/24/2025 Joseph Taylor GERD without esophag itis K21.9 ; Acute intractable tension-type headache G44.201 ; Essential hypertension I10 ; Type 2 diabetes mellitus without complication, without long-term current use of insulin E11.9 ; Mixed hyperlipidemia E78.2 ; Acquired hypothyroidism E03.9 and Non-seasonal allergic rhinitis, unspecified trigger J30.89 Assessments Encounter Date Diagnosis (ICD Code) Assessment Notes Treatment Notes Treatment Clinical Notes Section Notes 02/24/2025 GERD without esophagitis (ICD-10 - K21.9) Using OTC medication that has improved symptoms. 02/24/2025 Acute intractable tension-type headache (ICD-10 - G44.201) Multiple treatment options discussed with patient but she refused. 02/24/2025 Essential hypertension (ICD-10 - I10) 02/24/2025 Type 2 diabetes mellitus without complication, without long-term current use of insulin (ICD-10 - E11.9) 02/24/2025 Mixed hyperlipidemia (ICD-10 - E78.2) 02/24/2025 Acquired hypothyroidism (ICD-10 - E03.9) 02/24/2025 Non-seasonal allergic rhinitis, unspecified trigger (ICD-10 - J30.89) 02/24/2025 Other This chart has been transcribed by a computerized dictation system. There are likely to be multiple decal cutter inaccuracies despite chart review. Plan Of Treatment Medication Medication Name Sig Start Date Stop Date Notes Triamterene-HCTZ 75-50 MG Tablet TAKE 1 TABLET BY MOUTH DAILY Oral I10,Unavailable Losartan Potassium 50 MG Tablet TAKE 1 TABLET BY MOUTH DAILY Orally Glimepiride 1 MG Tablet 1 tablet in the morning and afternoon Orally Twice a day; Duration: 90 Days Jardiance 25 MG Tablet 1 tablet Orally O nce a day; Duration: 90 Days Carvedilol 3.125 MG Tablet TAKE 1 TABLET BY MOUTH TWICE DAILY Oral Amitriptyline HCl 25 MG Tablet TAKE 1 TABLET BY MOUTH AT BEDTIME Oral Ezetimibe 10 MG Tablet 1 tablet Orally O nce a day; Duration: 90 Days Levothyroxine Sodium 50 MCG Tablet TAKE 1 TABLET BY MOUTH DAILY Oral Fluticasone Propionate 50 MCG/ACT Suspension 1 spray in each nostril Nasally Once a day; Duration: 30 days Loratadine 10 MG Tablet 1 tablet Orally Once a day; Duration: 90 Days Atorvastatin Calcium 80 MG Tablet 1 tablet Orally Once a day; Duration: 90 Days Treatment Notes Assessment Notes GERD without esophagitis Using OTC medic ation that has improved symptoms. Acute intractable tension-type headache Multiple treatment options discussed with patient but she refused. Other This chart has been transcribed by a computerized dictation system. There are likely to be multiple decal cutter inaccuracies despite chart review. Next Appt Details Provider Name:Ninoska Lewis, 05/24/2025 11:00:00 AM, [address] [place] [address], [id number], History and Physical Notes * HPI (History [...] is planning on having spine injections with [facility] in [facility] but needs clearance. I asked her to bring in the paperwork for us to fill out if needed. It is okay for her to hold Aspirin 81mg for the four days prior to her injection and post injection if advised by MD performing the injection. Examination Category Sub-Category Detail Notes Category Not es General Examination GENERAL APPEARANCE: in no ac [place] distress, well developed, well nourished HEAD: normocephalic, [...] palate normal, tongue in midline, well papillated Progress Notes * Sylwia TRAVISDOB:[birth year] (69 yo F)Acc No.[id number]:02/24/2025 Patient: Sylwia Farr Provider: Milton Taylor M.D. :1955 A ge:69 Y S ex:Female Date:02/24/2025 Address:[address] [place] [address] , [id number] Subjective: * Chief Complaints: * ( IN OFFICE), Follow Up * HPI: S ymptom(s): 69-year-old female patient with history of type 2 diabetes, hypertension, hyperlipidemia, hypothyroidism and allergic rhinitis is here for follow up. Her emotions continue to be labile today during the visit. She tells me she is compliant with her medications and then tells me she is doing things the natural way . She has started taking B vitamins that have given her energy back". Her GERD symptoms are well controlled on [...] is planning on having spine injections with [facility] in [facility] but needs clearance. I asked her to bring in the paperwork for us to fill out if needed. It is okay for her to hold Aspirin 81mg for the four days prior to her injection and post injection if advised by MD performing the injection. * ROS: G eneral/Constitutional: Fever d enies. D izziness d enies. F atigue?denies. C hange in appetite d enies. E ndocrine: Weight loss d enies. W eight gain d enies. E xcessive thirst d enies. R espiratory: Cough d enies. C ongestion d enies. W heezing?denies. S putum production d enies. C ardiovascular: Chest pain d enies. D yspnea on exertion d enies.?Edema d enies. P alpitations d enies. G astrointestinal: Abdominal pain d enies. H eartburn d enies. N ausea d enies. V omiting d enies. C hange in bowel habits d enies. B RBPR?denies. D ysphagia d enies. H ematology: Easy bruising d enies. E nlarged glands d enies.? G enitourinary: Frequent urination d enies. P ainful urination d enies. I ncontience d enies. B lood in urine d enies. N octuria d enies. ? M usculoskeletal: C/D/L pain d enies. B morgan aches d enies. J oint pain d enies. S ciatica d enies. S kin: Rash d enies. I tching d enies. S kin lesion(s)?denies. H westley d enies. N eurologic: Weakness d enies. S eizures d enies. H eadache?denies. T ingling/Numbness d enies. M sai loss d enies. T remor d enies. P sychiatric: Depressed mood d enies. A nxiety d enies. P anic attacks d enies. D ifficulty sleeping d enies. * Medical History: Essential hypertension Mixed hyperlipidemia Acquired hypothyroidism Type 2 diabetes mellitus without complication, without long-term current use of insulin Stage 3a chronic kidney disease Plaque psoriasis GERD without esophagitis Postmenopausal bleeding Medical History Verified * Surgical History: C-sections 6 Tuboplasty Diagnostic laparoscopy 3 Hip replacement rightr twice left once Surgery for complications of Crohn's disease Arthroscopic surgery left shoulder Hernia repair 2 Surgical History verified. * Hospitalization/Major Diagno stic Procedure: No Hospitalization Documented. Hospitalization Verified. * Family History: F ather: [...] No Social History documented. * Medications: T akingLoratadine 10 MG Tablet 1 tablet Orally Once a day Fluticasone Propionate 50 MCG/ACT Suspension 1 spray in each nostril Nasally Once a day Atorvastatin Calcium 80 MG Tablet 1 tablet Orally Once a day Ezetimibe 10 MG Tablet 1 tablet Orally Once a day Amitriptyline HCl 25 MG Tablet TAKE 1 TABLET BY MOUTH AT BEDTIME Oral Losartan Potassium 50 MG Tablet TAKE 1 TABLET BY MOUTH DAILY Orally Triamterene-HCTZ 75- 50 MG Tablet TAKE 1 TABLET BY MOUTH DAILY Oral , Notes to Pharmacist: I10,UnavailableClobetasol Propionate 0.05 % Cream 1 application Externally Twice a day Levothyroxine Sodium 50 MCG Tablet TAKE 1 TABLET BY MOUTH DAILY Triamterene- HCTZ 75-50 MG Tablet TAKE 1 TABLET BY MOUTH DAILY IN THE MORNING CeraVe Psoriasis 2 % Cream 1 application as needed Externally Twice a day Levothyroxine Sodium 50 MCG Tablet 1 tablet in the morning on an empty stomach Orally Once a day Glimepiride 1 MG Tablet TAKE 1 TABLET BY MOUTH TWICE DAILY IN THE MORNING AND IN THE AFTERNOON Carvedilol 3.125 MG Tablet TAKE 1 TABLET BY MOUTH TWICE DAILY WITH FOOD Levalbuterol HCl 0.63 MG/3ML Nebulization Solution 3 ml as needed Inhalation every 8 hrs Advair Diskus 100-50 MCG/ACT Aerosol Powder Breath Activated 1 puff Inhalation Twice a day Nebulizer - Miscellaneous as directed Externally Four times a day Nebulizer/Tubing/Mouthpiece - Kit as directed Externally Four times a day Budesonide-Formoterol Fumarate 80-4.5 MCG/ACT Aerosol 1 inhalation Inhalation Twice a day Jardiance 25 MG Tablet TAKE 1 TABLET BY MOUTH DAILY Medication List reviewed and reconciled with the patientTaking Loratadine 10 MG Tablet 1 tablet Orally Once a day Taking Fluticasone Propionate 50 MCG/ACT Suspension 1 spray in each nostril Nasally Once a day Taking Atorvastatin Calcium 80 MG Tablet 1 tablet Orally Once a day Taking Ezetimibe 10 MG Tablet 1 tablet Orally Once a day Taking Amitriptyline HCl 25 MG Tablet TAKE 1 TABLET BY MOUTH AT BEDTIME Oral Taking Losartan Potassium 50 MG Tablet TAKE 1 TABLET BY MOUTH DAILY Orally Taking Triamterene-HCTZ 75-50 MG Tablet TAKE 1 TABLET BY MOUTH DAILY Oral , Notes to Pharmacist: I10,UnavailableTaking Clobetasol Propionate 0.05 % Cream 1 application Externally Twice a day Taking Levothyroxine Sodium 50 MCG Tablet TAKE 1 TABLET BY MOUTH DAILY Taking Triamterene-HCTZ 75-50 MG Tablet TAKE 1 TABLET BY MOUTH DAILY IN THE MORNING Taking CeraVe Psoriasis 2 % Cream 1 application as needed Externally Twice a day Taking Levothyroxine Sodium 50 MCG Tablet 1 tablet in the morning on an empty stomach Orally Once a day Taking Glimepiride 1 MG Tablet TAKE 1 TABLET BY MOUTH TWICE DAILY IN THE MORNING AND IN THE AFTERNOON Taking Carvedilol 3.125 MG Tablet TAKE 1 TABLET BY MOUTH TWICE DAILY WITH FOOD Taking Levalbuterol HCl 0.63 MG/3ML Nebulization Solution 3 ml as needed Inhalation every 8 hrs Taking Advair Diskus 100-50 MCG/ACT Aerosol Powder Breath Activated 1 puff Inhalation Twice a day Taking Nebulizer - Miscellaneous as directed Externally Four times a day Taking Nebulizer/Tubing/Mouthpiece - Kit as directed Externally Four times a day Taking Budesonide-Formoterol Fumarate 80-4.5 MCG/ACT Aerosol 1 inhalation Inhalation Twice a day Taking Jardiance 25 MG Tablet TAKE 1 TABLET BY MOUTH DAILY Medication List reviewed and reconciled with the patient * Allergies: B iaxinGabapentinNaproxenDuloxetineTylenolCodeineOtezla: couldn't function PantoprazoleyesAllergies Verified. Objective: * Examination: G eneral Examination: GENERAL APPEARANCE: i n no acute distress, well developed, well nourished. HEAD: n ormocephalic, atraumatic. EYES: p upils equal, round, reactive to light and accommodation. ORAL CAVITY: m [place] moist, no lesions, palate normal, tongue in midline, well papillated. THROAT: c lear, no erythema, uvula midline, no exudate.? NECK/THYROID: n kevin supple, no thyromegaly, trachea midline, no carotid bruit. LYMPH NODES: n o cervical, axillary, supraclavicular or inguinal adenopathy. SKIN: n o suspicious lesions, warm and dry. HEART: n o murmurs, regular rate and rhythm, S1, S2 normal.? LUNGS: c lear to auscultation bilaterally. ABDOMEN: s oft, nontender, nondistended, no organomegaly, bowel sounds present. MUSCULOSKELETAL: n ormal, full range of motion. EXTREMITIES: n o clubbing, cyanosis, or edema. PERIPHERAL PULSES: n ormal, 2+ throughout. NEUROLOGIC: a lert and oriented x3, nonfocal. PSYCH: M ood fluctuating between laughing, crying. ? Assessment: * Assessment: 1. A cute intractable tension-type headache - G44.201 (Primary) 2 . G ERD without esophagitis - K21.9 3 . E ssential hypertension - I10 4 .?Type 2 diabetes mellitus without complication, without long-term current use of insulin - E11.9 5 . M ixed hyperlipidemia - E78.2 6 . A cquired hypothyroidism - E03.9 7 . N on-seasonal allergic rhinitis, unspecified trigger - J30.89? Plan: * Treatment: 2. G ERD without esophagitis Notes: Using OTC medication that has improved symptoms. 3. E ssential hypertension Continue Carvedilol Tablet, 3.125 MG, TAKE 1 TABLET BY MOUTH TWICE DAILY, Oral; C ontinue Losartan Potassium Tablet, 50 MG, TAKE 1 TABLET BY MOUTH DAILY, Orally; C ontinue Triamterene-HCTZ Tablet, 75-50 MG, TAKE 1 TABLET BY MOUTH DAILY, Oral, Notes to Pharmacist: I10,Unavailable. 4. T ype 2 diabetes mellitus without complication, without long-term current use of insulin Continue Jardiance Tablet, 25 MG, 1 tablet, Orally, Once a day, 90 Days, 90 Tablet, Refills 0; C ontinue Glimepiride Tablet, 1 MG, 1 tablet in the morning and afternoon, Orally, Twice a day, 90 Days, 180 Tablet, Refills 0. 5. M ixed hyperlipidemia Continue Atorvastatin Calcium Tablet, 80 MG, 1 tablet, Orally, Once a day, 90 Days, 90 Tablet, Refills 0; C ontinue Ezetimibe Tablet, 10 MG, 1 tablet, Orally, Once a day, 90 Days, 90 Tablet, Refills 0. 6. A cquired hypothyroidism Continue Levothyroxine Sodium Tablet, 50 MCG, TAKE 1 TABLET BY MOUTH DAILY, Oral. 7. N on-seasonal allergic rhinitis, unspecified trigger Continue Loratadine Tablet, 10 MG, 1 tablet, Orally, Once a day, 90 Days, 90 Tablet, Refills 0;?Continue Fluticasone Propionate Suspension, 50 MCG/ACT, 1 spray in each nostril, Nasally, Once a day, 30 days, 1, Refills 2. 8. O thers Notes: This chart has been transcribed by a computerized dictation system. There are likely to be multiple decal cutter inaccuracies despite chart review. * The named appointment provid er may or may not be the originator of this progress note, and it is not deemed complete until electronically signed by the appointment provider. Sign off status: Pending * Provider: Milton Taylor M.D. Date: 04/26/2024 Generated for Robin talley/Ethel/Danis on: 05/24/2024 05:27 PM EST
--- OUTSIDE RECORDS SUMMARY | 2025-03-22 06:00 | XMS_ITS ---
Author Organization [facility], Address [address] [place] [address] Care Team Providers Care Junior Marketing Associate Name Role Phone StephanJoseph muñiz Primary Care Provider Allergies Allergen (clinical drug [...] REASON FOR VISIT (IN OFFICE), Follow Up 2 wks Medications Medication SIG (Take, Route, Frequency, Duration) Notes Start Date End Date Status Famotidine 40 MG Tablet 1 tablet Orally Once a day 03/21/2025 Active Levalbuterol HCl 0.63 MG/3ML Nebulization Solution 3 ml as needed Inhalation every 8 hrs; Duration: 30 days 03/21/2025 Active Advair Diskus 100-50 MCG/ACT Aerosol Powder Breath Activated 1 puff Inhalation Twice a day; Duration: 30 days 03/21/2025 Active PredniSONE Taper * 20 MG Tablet 3 tablets for 3 days, then 2 tablets for 3 days, then 1 tablet for 5 days Orally daily; Duration: 11 days Active Triamterene-HCTZ 75-50 MG Tablet TAKE 1 TABLET BY MOUTH DAILY Oral I10,Unavailabl e 03/21/2025 Active Jardiance 25 MG Tablet TAKE 1 TABLET BY MOUTH DAILY; Duration: 90 Active Glimepiride 1 MG Tablet 1 tablet in the morning and afternoon Orally Twice a day; Duration: 90 Days 03/21/2025 Active Amitriptyline HCl 25 MG Tablet TAKE 1 TABLET BY MOUTH AT BEDTIME Oral 03/21/2025 Active Carvedilol 3.125 MG Tablet TAKE 1 TABLET BY MOUTH TWICE DAILY Oral 03/21/2025 Active Losartan Potassium 50 MG Tablet TAKE 1 TABLET BY MOUTH DAILY Orally 03/21/2025 Active Atorvastatin Calcium 80 MG Tablet 1 tablet Orally Once a day; Duration: 90 Days 03/21/2025 Active Ezetimibe 10 MG Tablet 1 tablet Orally O nce a day; Duration: 90 Days 03/21/2025 Active Jardiance 25 MG Tablet 1 tablet Orally O nce a day; Duration: 90 Days 03/21/2025 Active Nebulizer/Tubing/Mouthp iece - Kit as directed Externally Four times a day; Duration: 30 days 02/08/2025 Active Budesonide-Formoterol Fumarate 80-4.5 MCG/ACT Aerosol 1 inhalation Inhalation Twice a day; Duration: 30 days 02/08/2025 Active Loratadine 10 MG Tablet 1 tablet Orally Once a day; Duration: 90 Days 03/21/2025 Active Fluticasone Propionate 50 MCG/ACT Suspension 1 spray in each nostril Nasally Once a day; Duration: 30 days 03/21/2025 Active Glimepiride 1 MG Tablet TAKE 1 TABLET BY MOUTH TWICE DAILY IN THE MORNING AND IN THE AFTERNOON; Duration: 90 Active Carvedilol 3.125 MG Tablet TAKE 1 TABLET BY MOUTH TWICE DAILY WITH FOOD; Duration: 90 Active Nebulizer - Miscellaneous as directed Externally Four times a day; Duration: 30 days 02/08/2025 Active Levothyroxine Sodium 50 MCG Tablet TAKE 1 TABLET BY MOUTH DAILY Oral 03/21/2025 Active Clobetasol Propionate 0.05 % Cream 1 application Externally Twice a day; Duration: 30 days 09/08/2024 Active Levothyroxine Sodium 50 MCG Tablet TAKE 1 TABLET BY MOUTH DAILY; Duration: 90 Active Triamterene-HCTZ 75-50 MG Tablet TAKE 1 TABLET BY MOUTH DAILY IN THE MORNING; Duration: 90 Active CeraVe Psoriasis 2 % Cream 1 application as needed Externally Twice a day; Duration: 30 days 12/03/2024 Active Encounters Encounter Location Date Provider Diagnosis [address] [address] 03/22/2025 Joseph Taylor GERD without esophag itis K21.9 ; Type 2 diabetes mellitus without complication, without long-term current use of insulin E11.9 ; Acute intractable tension-type headache G44.201 ; Essential hypertension I10 ; Mixed hyperlipidemia E78.2 ; Acquired hypothyroidism E03.9 ; Non-seasonal allergic rhinitis, unspecified trigger J30.89 and Simple chronic bronchitis J41.0 Assessments Encounter Date Diagnosis (ICD Code) Assessment Notes Treatment Notes Treatment Clinical Notes Section Notes 03/22/2025 GERD without esophagitis (ICD-10 - K21.9) 03/22/2025 Type 2 diabetes mellitus without complication, without long-term current use of insulin (ICD-10 - E11.9) 03/22/2025 Acute intractable tension-type headache (ICD-10 - G44.201) 03/22/2025 Essential hypertension (ICD-10 - I10) 03/22/2025 Mixed hyperlipidemia (ICD-10 - E78.2) 03/22/2025 Acquired hypothyroidism (ICD-10 - E03.9) 03/22/2025 Non-seasonal allergic rhinitis, unspecified trigger (ICD-10 - J30.89) 03/22/2025 Simple chronic bronchitis (ICD-10 - J41.0) 03/22/2025 Other This chart has been transcribed by a computerized dictation system. There are likely to be multiple trading floor operator inaccuracies despite chart review. Plan Of Treatment Medication Medication Name Sig Start Date Stop Date Notes Famotidine 40 MG Tablet 1 tablet Orally Once a day 03/21/2025 Levalbuterol HCl 0.63 MG/3ML Nebulization Solution 3 ml as needed Inhalation every 8 hrs; Duration: 30 days 03/21/2025 Advair Diskus 100-50 MCG/ACT Aerosol Powder Breath Activated 1 puff Inhalation Twice a day; Duration: 30 days 03/21/2025 Triamterene-HCTZ 75-50 MG Tablet TAKE 1 TABLET BY MOUTH DAILY Oral 03/21/2025 I10,Unavailable Glimepiride 1 MG Tablet 1 tablet in the morning and afternoon Orally Twice a day; Duration: 90 Days 03/21/2025 Amitriptyline HCl 25 MG Tablet TAKE 1 TABLET BY MOUTH AT BEDTIME Oral 03/21/2025 Carvedilol 3.125 MG Tablet TAKE 1 TABLET BY MOUTH TWICE DAILY Oral 03/21/2025 Losartan Potassium 50 MG Tablet TAKE 1 TABLET BY MOUTH DAILY Orally 03/21/2025 Atorvastatin Calcium 80 MG Tablet 1 tablet Orally Once a day; Duration: 90 Days 03/21/2025 Ezetimibe 10 MG Tablet 1 tablet Orally O nce a day; Duration: 90 Days 03/21/2025 Jardiance 25 MG Tablet 1 tablet Orally O nce a day; Duration: 90 Days 03/21/2025 Loratadine 10 MG Tablet 1 tablet Orally Once a day; Duration: 90 Days 03/21/2025 Fluticasone Propionate 50 MCG/ACT Suspension 1 spray in each nostril Nasally Once a day; Duration: 30 days 03/21/2025 Levothyroxine Sodium 50 MCG Tablet TAKE 1 TABLET BY MOUTH DAILY Oral 03/21/2025 Treatment Notes Assessment Notes Other This chart has been transcribed by a computerized dictation system. There are likely to be multiple trading floor operator inaccuracies despite chart review. Next Appt Details Provider Name:Ninoska Lewis, 05/24/2025 11:00:00 AM, [address] [place] [address], [phone], History and Physical Notes * HPI (History of Present Illness) Category Sub-Category Detail Notes Category Not es Symptom(s) 69-year-old fem tatianna patient with history of type 2 diabetes, hypertension, hyperlipidemia, hypothyroidism and allergic rhinitis is here for her annual Medicare wellness visit. Patient is a fall risk and uses a walker to ambulate. Patient reports memory loss. Patient again forgot to have her labs drawn. I advised her to have them done as soon as possible and return to review them. Patient's right side and angioedema has improved with prednisone taper. I advised her to complete the course. Examination Category Sub-Category Detail Notes Category Not es General Examination GENERAL APPEARANCE: in no ac grindstone distress, well developed, well nourished HEAD: Angioedema affecting her eyes and cheeks,?right greater than left EYES: pupils equal, round, reactive to light [...] axillar y, supraclavicular or inguinal adenopathy PSYCH: cognitive function i ntact, mood/affect full range ORAL CAVITY: mucosa moist, no les ions, palate normal, tongue in midline, well papillated Progress Notes * Sylwia TRAVISDOB:[birth year] (69 yo F)Acc No.[id number]:03/22/2025 Patient: Sylwia Farr Provider: Milton Taylor M.D. :1955 A ge:69 Y S ex:Female Date:03/22/2025 Address:[address] [place], [place] [id number] Subjective: * Chief Complaints: * ( IN OFFICE), Follow Up 2 wks * HPI: S ymptom(s): 69-year-old female patient with history of type 2 diabetes, hypertension, hyperlipidemia, hypothyroidism and allergic rhinitis is here for her annual Medicare wellness visit. Patient is a fall risk and uses a walker to ambulate. Patient reports memory loss. Patient again forgot to have her labs drawn. I advised her to have them done as soon as possible and return to review them. Patient's right side and angioedema has improved with prednisone taper. I advised her to complete the course. * ROS: G eneral/Constitutional: Fever d enies. D izziness d enies. F atigue?denies. C hange in appetite d enies. E ndocrine: Weight loss a dmits. W eight gain d enies. E xcessive [...] enies. S ciatica d enies. S kin: Patient complaining of A s per HPI . R baltazar d enies.?Itching d enies. S kin lesion(s) d enies. H westley d enies. N eurologic: Weakness d enies. S eizures d enies. H eadache?denies. T ingling/Numbness d enies. M sai loss a dmits. T remor d enies. P sychiatric: Depressed [...] No Social History documented. * Medications: T akingClobetasol Propionate 0.05 % Cream 1 application Externally Twice a day Levothyroxine Sodium 50 MCG Tablet TAKE 1 TABLET BY MOUTH DAILY Triamterene-HCTZ 75-50 MG Tablet TAKE 1 TABLET BY MOUTH DAILY IN THE MORNING CeraVe Psoriasis 2 % Cream 1 application as needed Externally Twice a day Glimepiride 1 MG Tablet TAKE 1 TABLET BY MOUTH TWICE DAILY IN THE MORNING AND IN THE AFTERNOON Carvedilol 3.125 MG Tablet TAKE 1 TABLET BY MOUTH TWICE DAILY WITH FOOD Nebulizer - Miscellaneous as directed Externally Four times a day Nebulizer/Tubing/Mouthpiece - Kit as directed Externally Four times a day Budesonide-Formoterol Fumarate 80-4.5 MCG/ACT Aerosol 1 inhalation Inhalation Twice a day Jardiance 25 MG Tablet TAKE 1 TABLET BY MOUTH DAILY Levothyroxine Sodium 50 MCG Tablet TAKE 1 TABLET BY MOUTH DAILY Oral Loratadine 10 MG Tablet 1 tablet Orally Once a day Fluticasone Propionate 50 MCG/ACT Suspension 1 spray in each nostril Nasally Once a day Atorvastatin Calcium 80 MG Tablet 1 tablet Orally Once a day Ezetimibe 10 MG Tablet 1 tablet Orally Once a day Jardiance 25 MG Tablet 1 tablet Orally Once a day Glimepiride 1 MG Tablet 1 tablet in the morning and afternoon Orally Twice a day Amitriptyline HCl 25 MG Tablet TAKE 1 TABLET BY MOUTH AT BEDTIME Oral Carvedilol 3.125 MG Tablet TAKE 1 TABLET BY MOUTH TWICE DAILY Oral Losartan Potassium 50 MG Tablet TAKE 1 TABLET BY MOUTH DAILY Orally Triamterene- HCTZ 75-50 MG Tablet TAKE 1 TABLET BY MOUTH DAILY Oral , Notes to Pharmacist: I10,UnavailableFamotidine 40 MG Tablet 1 tablet Orally Once a day Levalbuterol HCl 0.63 MG/3ML Nebulization Solution 3 ml as needed Inhalation every 8 hrs Advair Diskus 100-50 MCG/ACT Aerosol Powder Breath Activated 1 puff Inhalation Twice a day PredniSONE Taper * 20 MG Tablet 3 tablets for 3 days, then 2 tablets for 3 days, then 1 tablet for 5 days Orally daily Medication List reviewed and reconciled with the patientTaking Clobetasol Propionate 0.05 % Cream 1 application Externally Twice a day Taking Levothyroxine Sodium 50 MCG Tablet TAKE 1 TABLET BY MOUTH DAILY Taking Triamterene-HCTZ 75-50 MG Tablet TAKE 1 TABLET BY MOUTH DAILY IN THE MORNING Taking CeraVe Psoriasis 2 % Cream 1 application as needed Externally Twice a day Taking Glimepiride 1 MG Tablet TAKE 1 TABLET BY MOUTH TWICE DAILY IN THE MORNING AND IN THE AFTERNOON Taking Carvedilol 3.125 MG Tablet TAKE 1 TABLET BY MOUTH TWICE DAILY WITH FOOD Taking Nebulizer - Miscellaneous as directed Externally Four times a day Taking Nebulizer/Tubing/Mouthpiece - Kit as directed Externally Four times a day Taking Budesonide-Formoterol Fumarate 80-4.5 MCG/ACT Aerosol 1 inhalation Inhalation Twice a day Taking Jardiance 25 MG Tablet TAKE 1 TABLET BY MOUTH DAILY Taking Levothyroxine Sodium 50 MCG Tablet TAKE 1 TABLET BY MOUTH DAILY Oral Taking Loratadine 10 MG Tablet 1 tablet Orally Once a day Taking Fluticasone Propionate 50 MCG/ACT Suspension 1 spray in each nostril Nasally Once a day Taking Atorvastatin Calcium 80 MG Tablet 1 tablet Orally Once a day Taking Ezetimibe 10 MG Tablet 1 tablet Orally Once a day Taking Jardiance 25 MG Tablet 1 tablet Orally Once a day Taking Glimepiride 1 MG Tablet 1 tablet in the morning and afternoon Orally Twice a day Taking Amitriptyline HCl 25 MG Tablet TAKE 1 TABLET BY MOUTH AT BEDTIME Oral Taking Carvedilol 3.125 MG Tablet TAKE 1 TABLET BY MOUTH TWICE DAILY Oral Taking Losartan Potassium 50 MG Tablet TAKE 1 TABLET BY MOUTH DAILY Orally Taking Triamterene-HCTZ 75-50 MG Tablet TAKE 1 TABLET BY MOUTH DAILY Oral , Notes to Pharmacist: I10,UnavailableTaking Famotidine 40 MG Tablet 1 tablet Orally Once a day Taking Levalbuterol HCl 0.63 MG/3ML Nebulization Solution 3 ml as needed Inhalation every 8 hrs Taking Advair Diskus 100-50 MCG/ACT Aerosol Powder Breath Activated 1 puff Inhalation Twice a day Taking PredniSONE Taper * 20 MG Tablet 3 tablets for 3 days, then 2 tablets for 3 days, then 1 tablet for 5 days Orally daily Medication List reviewed and reconciled with the patient * Allergies: B iaxinGabapentinNaproxenDuloxetineTylenolCodeineOtezla: couldn't function PantoprazoleyesAllergies Verified. Objective: * P ast Orders: L ab:Hemoglobin [id number] (Order Date - 12/02/2024) (Collection Date & Time - 03/09/2025 09:17 AM) Value Reference Range Hemoglobin A1c 8.8 H 4.8-5.6 - % Lab:TSH+Free [id number] * Collection Date 03/09/2025 11/02/2024 01/21/2024 Collection Time 09:17 AM 09:30 AM 08:50 AM Order Date 12/02/2024 08/05/2024 01/20/2024 TSH 3.400 (Ref Range: 0.450-4.500 uIU/mL) 8.660 H (Ref Range: 0.450-4.500 uIU/mL) 3.690 (Ref Range: 0.450-4.500 uIU/mL) T4,Free(Direct) 1.11 (Ref Range: 0.82-1.77 ng/dL) 1.01 (Ref Range: 0.82-1.77 ng/dL) 1.19 (Ref Range: 0.82-1.77 ng/dL) ???Lab:LP+Non-HDL Cholesterol-[id number] (Order Date - 12/02/2024) (Collection Date & Time - 03/09/2025 09:17 AM)?ValueReference Range?Cholesterol, [id number] - mg/dL?Euhimthpmqomq317A7-499 - mg/dL?HDL Rbmjbwlcxpn52>39 - mg/dL?VLDL Cholesterol Fdm67Q3-96 - mg/dL?LDL Chol Calc ([facility])378G2-59 - mg/dL?Non-HDL Wkldeqiouyv818N3-699 - mg/dL ???Lab:Hepatic Function Panel [id number] (Order Date - 12/02/2024) (Collection Date & Time - 03/09/2025 09:17 AM)?ValueReference Range?Albumin4.0 3.8-4.8 - g/dL?Bilirubin, Total0.50.0-1.2 - mg/dL?Bilirubin, Direct0.180.00-0.40 - mg/dL?Alkaline Hoajggnserf89235-659 - IU/L ?AST (SGOT)250-40 - IU/L?ALT (SGPT)290-32 - IU/L * Examination: G eneral Examination: GENERAL APPEARANCE: i n no acute distress, well developed, well nourished. HEAD: A ngioedema affecting her eyes and cheeks, r ight greater than left . EYES: p upils equal, round, reactive to [...] a lert and oriented x3, nonfocal. PSYCH: c ognitive function intact, mood/affect full range.? Assessment: * Assessment: 1. T ype 2 diabetes mellitus without complication, without long-term current use of insulin - E11.9 (Primary) 2 . G ERD without esophagitis - K21.9 3 . A cute intractable tension-type headache - G44.201 4 . E ssential hypertension - I10 5 . M ixed hyperlipidemia - E78.2 6 . A cquired hypothyroidism - E03.9 7 . N on-seasonal allergic rhinitis, unspecified trigger - J30.89? 8. S imple chronic bronchitis - J41.0 Plan: * Treatment: 2. G ERD without esophagitis Continue Famotidine Tablet, 40 MG, 1 tablet, Orally, Once a day. 3. A cute intractable tension-type headache Continue Amitriptyline HCl Tablet, 25 MG, TAKE 1 TABLET BY MOUTH AT BEDTIME, Oral. 4. E ssential hypertension Continue Carvedilol Tablet, 3.125 MG, TAKE 1 TABLET BY MOUTH TWICE DAILY, Oral; C ontinue Losartan Potassium Tablet, 50 MG, TAKE 1 TABLET BY MOUTH DAILY, Orally; C ontinue Triamterene-HCTZ Tablet, 75-50 MG, TAKE 1 TABLET BY MOUTH DAILY, Oral, Notes to Pharmacist: I10,Unavailable. 5. M ixed hyperlipidemia Continue Atorvastatin Calcium [...] day, 30 days, 1, Refills 2. 8. S imple chronic bronchitis Continue Levalbuterol HCl Nebulization Solution, 0.63 MG/3ML, 3 ml as needed, Inhalation, every 8 hrs, 30 days, 270 ml, Refills 2; C ontinue Advair Diskus Aerosol Powder Breath Activated, 100-50 MCG/ACT, 1 puff, Inhalation, Twice a day, 30 days, 2, Refills 2. 9. O indra Notes: This chart has been transcribed by a computerized dictation system. There are likely to be multiple trading floor operator inaccuracies despite chart review. * The named appointment provid er may or may not be the originator of this progress note, and it is not deemed complete until electronically signed by the appointment provider. Sign off status: Pending * Provider: Milton Taylor M.D. Date: 05/23/2024 Generated for Robin talley/Ethel/Danis on: 05/24/2024 05:28 PM EST
[2025-03-23 14:56] LABS: Anion Gap 13 (12-20); Blood Urea Nitrogen 21 mg/dL (9-16); Calcium 9.8 mg/dL (8.4-10.2); Carbon Dioxide 30 mmol/L (22-29); Chloride 100 mmol/L (96-108); Cholesterol 214 mg/dL (<200); Estimated Glomerular Filt Rate 59; HDL Cholesterol 37 mg/dL (>40); Potassium 3.7 mmol/L (3.3-5.1); Sodium 139 mmol/L (135-145); Triglycerides 379 mg/dL (<150)
--- OUTSIDE RECORDS SUMMARY | 2025-03-23 17:28 | XMS_ITS | Patient Health Record ---
Author Organization [facility]en Address [address] [place] [address] Care Team Providers Care Rice Farmer Name Role Phone Joseph Taylor Primary Care Provider Ninoska Lewis Unavailable [phone] Allergies Allergen (clinical drug ingredient) Drug/Non Drug [...] pantoprazole Pantoprazole Unknown Drug Allergy A ctive Results Component Value Reference Range Flag Notes Hemoglobin [id number] Reviewed date:11/03/2024 08:32:21 AM Interpretation: Performing Lab:[facility], [address] [facility], Phone - [phone], Director - MDJodry Notes/Report: Hemoglobin A1c 7.9 4.8-5.6 % H . Prediabetes: 5.7 - 6.4 Diabetes: >6.4 Glycemic control for adults with diabetes: <7.0 TSH+Free [id number] Reviewed date:11/03/2024 08:32:21 AM Interpretation: Performing Lab:[facility], [address] [facility], Phone - [phone], Director - MDJodry Notes/Report: TSH 8.660 0.450-4.500 uIU/mL H T4,Free(Direct) 1.01 0.82-1.77 ng/dL Lipid Panel-[id number] Reviewed date:11/03/2024 08:32:21 AM Interpretation: Performing Lab:[facility] [place], [address] [facility], Phone - [phone], Director - Sohan Notes/Report: Cholesterol, Total 173 100-199 mg/dL Triglycerides 215 0-149 mg/dL H HDL Cholesterol 43 >39 mg/dL VLDL Cholesterol Jeff 37 5-40 mg/dL LDL Chol Calc (NIH) 93 0-99 mg/dL Comp. Metabolic Panel (13)-3 [id number] Reviewed date:11/03/2024 08:32:21 AM Interpretation: Performing Lab:[facility] [place], [address] [facility], Phone - [phone], Director - Sohan Notes/Report: Glucose 137 70-99 mg/dL H BUN 19 8-27 mg/dL Creatinine 1.09 0.57-1.00 mg/dL H eGFR 54 >59 mL/min/1.73 L BUN/Creatinine Ratio 17 12-28 Sodium 142 134-144 mmol/L Potassium 3.6 3.5-5.2 mmol/L Chloride 100 96-106 mmol/L Carbon Dioxide, Total 21 20-29 mmol/L Calcium 9.7 8.7-10.3 mg/dL Protein, Total 7.1 6.0-8.5 g/dL Albumin 4.0 3.8-4.8 g/dL Globulin, Total 3.1 1.5-4.5 g/dL Bilirubin, Total 0.4 0.0-1.2 mg/dL Alkaline Phosphatase 157 44-121 IU/L H AST (SGOT) 21 0-40 IU/L FC-[id number] Reviewed date:11/03/2024 08:32:21 AM Interpretation: Performing Lab:[facility] [place], [address] [facility], [place], Phone - [phone], Director - Sohan Notes/Report: NT-proBNP 69 0-301 pg/mL The following cut-points have been suggested for the use of proBNP for the diagnostic evaluation of heart failure (HF) in patients with acute dyspnea: . Modality Age Optimal Cut (years) Point -------- Diagnosis (rule in HF) <50 450 pg/mL 50 - 75 900 pg/mL >75 1800 pg/mL Exclusion (rule out HF) Age independent 300 pg/mL Sedimentation Rate-Davionre n-[id number] Reviewed date:09/09/2024 02:01:30 PM Interpretation: Performing Lab:[facility] [place], [address] [place] [address], [place], Phone - [phone], Director - Sohan Notes/Report: Sedimentation Rate-Alergren 21 0-40 mm/hr Lyme Disease Serology w/Refl ex-[id number] Reviewed date:09/09/2024 02:01:30 PM Interpretation: Performing Lab:[facility] [place], [address] [place] [address], [place], Phone - [phone], Director - Sohan Notes/Report: Lyme Total Antibody [...] is recommended. CBC with Diff, Platelet, NLR -[id number] Reviewed date:09/09/2024 02:01:30 PM Interpretation: Performing Lab:[facility] [place], [address] [place] [address], [place], Phone - [phone], Director - Sohan Notes/Report: WBC 7.9 3.4-10.8 x10E3/uL RBC 4.84 3.77-5.28 x10E6/uL Hemoglobin 13.6 11.1-15.9 g/dL Hematocrit 42.4 34.0-46.6 % MCV 88 79-97 fL MCH 28.1 26.6-33.0 pg MCHC 32.1 31.5-35.7 g/dL RDW 15.7 11.7-15.4 % H Platelets 184 150-450 x10E3/uL Neutrophils 59 Not Estab. % Lymphs 33 Not Estab. % Monocytes 6 Not Estab. % Eos 1 Not Estab. % Basos 1 Not Estab. % Neutrophils (Absolute) 4.6 1.4-7.0 x10E3/uL Lymphs (Absolute) 2.7 0.7-3.1 x10E3/uL Neut/Lymph Ratio 1.7 0.0-2.9 ratio Published COVID-19 studies suggest: Low likelihood of severe COVID-19 disease progression 0.0-2.9 High likelihood of severe COVID-19 disease progression >4.9 Monocytes(Absolute) 0.5 0.1-0.9 x10E3/uL Eos (Absolute) 0.1 0.0-0.4 x10E3/uL Baso (Absolute) 0.1 0.0-0.2 x10E3/uL Immature Granulocytes 0 Not Estab. % Immature Grans (Abs) 0.0 0.0-0.1 x10E3/uL LP+Non-HDL Cholesterol-[id number] Reviewed date:03/10/2025 08:13:07 AM Interpretation: Performing Lab:[facility], [address], [address], [place], Phone - [phone], Director - [facility] Notes/Report: Cholesterol, Total 239 100-199 mg/dL H Triglycerides 419 0-149 mg/dL H HDL Cholesterol 43 >39 mg/dL VLDL Cholesterol Jeff 74 5-40 mg/dL H LDL Chol Calc (NIH) 122 0-99 mg/dL H Non-HDL Cholesterol 196 0-129 mg/dL H Hepatic Function Panel (6)-3 [id number] Reviewed date:03/10/2025 08:13:07 AM Interpretation: Performing Lab:[facility] Merritt, [address], [address], [place], Phone - [phone], Director - [facility] Notes/Report: Albumin 4.0 3.8-4.8 g/dL Bilirubin, Total 0.5 0.0-1.2 mg/dL Bilirubin, Direct 0.18 0.00-0.40 mg/dL Alkaline Phosphatase 124 49-135 IU/L AST (SGOT) 25 0-40 IU/L ALT (SGPT) 29 0-32 IU/L Urinalysis, Complete-[id number] Reviewed date:02/06/2025 06:58:22 PM Interpretation: Performing Lab:[facility], [address] [facility], Phone - [phone], Director - Sohan Notes/Report: Clinical Information:SRC:UC Clinical Information:SRC:UC Specific [place] 1.026 1.005-1.030 pH 8.0 5.0-7.5 H Urine-Color Yellow Yellow Appearance Turbid Clear A WBC Esterase Negative Negative Protein Negative Negative/Trace Glucose 3+ Negative A Ketones Negative Negative Occult Blood Negative Negative Bilirubin Negative Negative Urobilinogen,Semi-Qn 0.2 0.2-1.0 mg/dL Nitrite, Urine Negative Negative Microscopic Examination M icroscopic follows if indicated. Microscopic Examination See below: M icroscopic was indicated and was performed. WBC 0-5 0 - 5 /hpf RBC None seen 0 - 2 /hpf Epithelial Cells (non renal) 0-10 0 - 10 /hpf Casts None seen None seen /lpf Bacteria Many None seen/Few A Urine Culture, Routine-[id number] 7 Reviewed date:02/06/2025 06:59:17 PM Interpretation: Performing Lab:[facility], [address] [place] [address], Phone - [phone], Director - Sohan Notes/Report: Clinical Information:SRC: Clinical Information:SRC: Urine Culture, Routine Final report Result 1 Mixed urogenital murphy 25,000-50,000 colony forming units per mL TSH+Free [id number] Reviewed date:03/10/2025 08:13:07 AM Interpretation: Performing Lab:[facility], [address], [address], [place], Phone - [phone], Director - [facility] Notes/Report: TSH 3.400 0.450-4.500 uIU/mL T4,Free(Direct) 1.11 0.82-1.77 ng/dL Hemoglobin [id number] Reviewed date:03/10/2025 08:13:07 AM Interpretation: Performing Lab:[facility], [address], [address], [place], Phone - [phone], [facility] Notes/Report: Hemoglobin A1c 8.8 4.8-5.6 % H . Prediabetes: 5.7 - 6.4 Diabetes: >6.4 Glycemic control for adults with diabetes: <7.0 Reason For Referral Reason Consultation Diagnosis 1 Stage 3a chronic kid brian disease (N18.31) Referral Organization [facility] Referring Provider First Name Joseph Referring Provider Last Name Brandon Referring Provider Speciality Internal M edicine Referred Provider Specialty Nephrology General Notes Adair Patiño 05/2024 12:55:02 PM EDT > Faxed to renal and transplant , Adair Patiño 08/11/2024 09:35:08 AM EDT > PT Scheduled for September 29 at 1:45 Clinical Notes [facility] , , F: [phone] Referral Priority Routine Referral Appointment Date 09/29/2024 Reason 30 minute procedure: Excision biopsy of skin lesion left side of the face Diagnosis 1 Facial skin lesion ( L98.9) Referral Organization Joseph [facility] Referring Provider First Name Joseph Referring Provider Last Name Brandon Referring Provider Speciality Internal M edicine Referred Provider Specialty Other Medica l Care General Notes Alex Purvi MEDINA 04/2024 10:55:13 AM EDT > patient aware of the procedure Referral Priority Routine Medications Medication SIG (Take, Route, Frequency, Duration) Notes Start Date End Date Status Carvedilol 3.125 MG Tablet TAKE 1 TABLET BY MOUTH TWICE DAILY Oral 03/21/2025 Active Losartan Potassium 50 MG Tablet TAKE 1 TABLET BY MOUTH DAILY Orally 03/21/2025 Active Triamterene-HCTZ 75-50 MG Tablet TAKE 1 TABLET BY MOUTH DAILY Oral I10,Unavailabl e 03/21/2025 Active Famotidine 40 MG Tablet 1 tablet Orally Once a day 03/21/2025 Active Levalbuterol HCl 0.63 MG/3ML Nebulization Solution 3 ml as needed Inhalation every 8 hrs; Duration: 30 days 03/21/2025 Active Advair Diskus 100-50 MCG/ACT Aerosol Powder Breath Activated 1 puff Inhalation Twice a day; Duration: 30 days 03/21/2025 Active Clobetasol Propionate 0.05 % Cream 1 application Externally Twice a day; Duration: 30 days 09/08/2024 Active Levothyroxine Sodium 50 MCG Tablet TAKE 1 TABLET BY MOUTH DAILY; Duration: 90 Active Triamterene-HCTZ 75-50 MG Tablet TAKE 1 TABLET BY MOUTH DAILY IN THE MORNING; Duration: 90 Active PredniSONE Taper * 20 MG Tablet 3 tablets for 3 days, then 2 tablets for 3 days, then 1 tablet for 5 days Orally daily; Duration: 11 days Active CeraVe Psoriasis 2 % Cream 1 application as needed Externally Twice a day; Duration: 30 days 12/03/2024 Active Glimepiride 1 MG Tablet TAKE 1 TABLET BY MOUTH TWICE DAILY IN THE MORNING AND IN THE AFTERNOON; Duration: 90 Active Carvedilol 3.125 MG Tablet TAKE 1 TABLET BY MOUTH TWICE DAILY WITH FOOD; Duration: 90 Active Nebulizer - Miscellaneous as directed Externally Four times a day; Duration: 30 days 02/08/2025 Active Nebulizer/Tubing/Mouthp iece - Kit as directed Externally Four times a day; Duration: 30 days 02/08/2025 Active Budesonide-Formoterol Fumarate 80-4.5 MCG/ACT Aerosol 1 inhalation Inhalation Twice a day; Duration: 30 days 02/08/2025 Active Levothyroxine Sodium 50 MCG Tablet TAKE 1 TABLET BY MOUTH DAILY Oral 03/21/2025 Active Loratadine 10 MG Tablet 1 tablet Orally Once a day; Duration: 90 Days 03/21/2025 Active Fluticasone Propionate 50 MCG/ACT Suspension 1 spray in each nostril Nasally Once a day; Duration: 30 days 03/21/2025 Active Jardiance 25 MG Tablet TAKE 1 TABLET BY MOUTH DAILY; Duration: 90 Active Atorvastatin Calcium 80 MG Tablet 1 tablet Orally Once a day; Duration: 90 Days 03/21/2025 Active Ezetimibe 10 MG Tablet 1 tablet Orally O nce a day; Duration: 90 Days 03/21/2025 Active Jardiance 25 MG Tablet 1 tablet Orally O nce a day; Duration: 90 Days 03/21/2025 Active Glimepiride 1 MG Tablet 1 tablet in the morning and afternoon Orally Twice a day; Duration: 90 Days 03/21/2025 Active Amitriptyline HCl 25 MG Tablet TAKE 1 TABLET BY MOUTH AT BEDTIME Oral 03/21/2025 Active Immunizations Vaccine Route Administration Date Status Comme nts *Influenza (Fluarix Quad) IM Intramuscular 01/02/2024 Admi nistered Problems Problem Type SNOMED Code ICD Code Onset Dates Problem Status W/U Status Risk Notes Problem Postmenopausal bleeding (05632600) Postmenopausal bleeding (N95.0) Active confirmed Problem Mixed hyperlipidemia (403572783) Mixed hyperlipidemia (E78.2) Active confirmed Problem Simple chronic bronchitis (72509309) Simple chronic bronchitis (J41.0) Active confirmed Problem Essential hypertension (09600886) Essential hypertension (I10) Active confirmed Problem Acquired hypothyroidism (177082225) Acquired hypothyroidism (E03.9) Active confirmed Problem Plaque psoriasis (932029587) Plaque psoriasis (L40.0) Active confirmed Problem Type II diabetes mellitus without complication (943695982) Type 2 diabetes mellitus without complication, without long-term current use of insulin (E11.9) Active confirmed Problem Allergic rhinitis (40489070) Non-seasonal allergic rhinitis, unspecified trigger (J30.89) Active confirmed Problem Gastroesophageal reflux disease (571453044) GERD without esophagitis (K21.9) Active confirmed Problem Chronic kidney disease stage 3A (420853277) Stage 3a chronic kidney disease (N18.31) Active confirmed Problem Tension-type headache (049903598) Acute intractable tension-type headache (G44.201) Active confirmed Vital Signs Heart Rate 76 /min 03/08/2025 Blood pressure diastolic 72 mm Hg 03/08/2025 Height 64 in 03/08/2025 Blood pressure systolic 122 mm Hg 03/08/2025 Weight 219.6 lbs 03/08/2025 BMI 37.69 kg/m2 03/08/2025 Encounters Encounter Location Date Provider Diagnosis [address] [address] 02/24/2025 Joseph Taylor GERD without esophag itis K21.9 ; Acute intractable tension-type headache G44.201 ; Essential hypertension I10 ; Type 2 diabetes mellitus without complication, without long-term current use of insulin E11.9 ; Mixed hyperlipidemia E78.2 ; Acquired hypothyroidism E03.9 and Non-seasonal allergic rhinitis, unspecified trigger J30.[address] [address] 03/22/2025 Joseph Taylor GERD without esophag itis K21.9 ; Type 2 diabetes mellitus without complication, without long-term current use of insulin E11.9 ; Acute intractable tension-type headache G44.201 ; Essential hypertension I10 ; Mixed hyperlipidemia E78.2 ; Acquired hypothyroidism E03.9 ; Non-seasonal allergic rhinitis, unspecified trigger J30.89 and Simple chronic bronchitis J41.[address] [address] 04/06/2024 Joseph Taylor Rib pain on right si de R07.[address] [address] 06/03/2024 Joseph Taylor Essential hypertensi on I10 ; Type 2 diabetes mellitus without complication, without long-term current use of insulin E11.9 ; Mixed hyperlipidemia E78.2 ; Acquired hypothyroidism E03.9 ; Non-seasonal allergic rhinitis, unspecified trigger J30.89 and Benign paroxysmal positional vertigo, unspecified laterality H81.[address] [address] 08/05/2024 Joseph Taylor Essential hypertensi on I10 ; Type 2 diabetes mellitus without complication, without long-term current use of insulin E11.9 ; Mixed hyperlipidemia E78.2 ; Acquired hypothyroidism E03.9 ; Non-seasonal allergic rhinitis, unspecified trigger J30.89 ; Benign paroxysmal positional vertigo, unspecified laterality H81.10 ; Stage 3a chronic kidney disease N18.31 ; Facial skin lesion L98.9 and Seborrheic keratosis L82.[address] [address] 09/08/2024 Joseph Taylor Plaque psoriasis L40 .[address] [address] 09/10/2024 Joseph Taylor Acute abdomen R10.0 and Postmenopausal bleeding N95.[address] [address] 09/30/2024 Joseph Taylor Plaque psoriasis L40 .0 and Pruritus L29.[address] [address] 11/04/2024 Joseph Taylor GERD without esophag itis K21.9 ; Acute intractable tension-type headache G44.201 ; Essential hypertension I10 ; Type 2 diabetes mellitus without complication, without long-term current use of insulin E11.9 ; Mixed hyperlipidemia E78.2 ; Acquired hypothyroidism E03.9 and Non-seasonal allergic rhinitis, unspecified trigger J30.[address] [address] 12/02/2024 Joseph Taylor GERD without esophag itis K21.9 ; Acute intractable tension-type headache G44.201 ; Essential hypertension I10 ; Type 2 diabetes mellitus without complication, without long-term current use of insulin E11.9 ; Mixed hyperlipidemia E78.2 ; Acquired hypothyroidism E03.9 and Non-seasonal allergic rhinitis, unspecified trigger J30.89 [facility], [address] [address] 02/05/2025 Joseph Taylor Urinary frequency R3 5.0 and Simple [facility] J41.0 [facility] [address] [address] 03/01/2025 Joseph Taylor Angioedema, initial encounter T78.3XXA ; GERD without esophagitis K21.9 ; Acute intractable tension-type headache G44.201 ; Essential hypertension I10 ; Type 2 diabetes mellitus without complication, without long-term current use of insulin E11.9 ; Mixed hyperlipidemia E78.2 ; Acquired hypothyroidism E03.9 ; Non-seasonal allergic rhinitis, unspecified trigger J30.89 and Simple chronic bronchitis J41.0 [facility] [address] [address] 03/08/2025 Joseph Taylor Annual wellness visi t Z00.00 ; Angioedema, initial encounter T78.3XXA ; GERD without esophagitis K21.9 ; Acute intractable tension-type headache G44.201 ; Essential hypertension I10 ; Type 2 diabetes mellitus without complication, without long-term current use of insulin E11.9 ; Mixed hyperlipidemia E78.2 ; Acquired hypothyroidism E03.9 ; Non-seasonal allergic rhinitis, unspecified trigger J30.89 and Simple chronic bronchitis J41.0 [facility] [address] [address] 05/06/2024 [facility] [address] [address] 05/20/2024 Joseph Taylor [facility], [address] [address] 05/21/2024 [facility] [address] [address] 06/01/2024 Joseph Taylor [facility], [address] [address] 09/01/2024 [facility] [address] [address] 09/11/2024 [facility] [address] [address] 11/04/2024 [facility] [address] [address] 11/10/2024 [facility] [address] [address] 11/10/2024 Joseph Stephanmary kay [facility], [address] [place] [address] 11/24/2024 Joseph Stephanmary kay [facility], [address] [place] [address] 12/03/2024 Joseph [facility], [address] [address] 12/28/2024 Joseph Stephanmary kay Acquired hypothyroid ism E03.9 [facility], [address] [place] [address] 02/05/2025 Ninoska Lewis [facility], [address] [address] 02/08/2025 Joseph mary kay [facility], [address] [address] 02/11/2025 Joseph Taylor Assessments Encounter Date Diagnosis (ICD Code) Assessment Notes Treatment Notes Treatment Clinical Notes Section Notes 09/10/2024 Postmenopausal bleeding (ICD-10 - N95.0) Patient explained that she needs to see her sas analyst for endometrial biopsy to rule out uterine cancer. 09/10/2024 Acute abdomen (ICD-10 - R10.0) Patient was advised to go to emergency room immediately to rule out appendicitis. 09/30/2024 Pruritus (ICD-10 - L29.9) 09/30/2024 Plaque psoriasis (ICD-10 - L40.0) 12/28/2024 Acquired hypothyroidism (ICD-10 - E03.9) 02/05/2025 Urinary frequency (ICD-10 - R35.0) 02/05/2025 Simple chronic bronchitis (ICD-10 - J41.0) 12/02/2024 GERD without esophagitis (ICD-10 - K21.9) Using OTC medication that has improved symptoms. 03/22/2025 Type 2 diabetes mellitus without complication, without long-term current use of insulin (ICD-10 - E11.9) 03/22/2025 GERD without esophagitis (ICD-10 - K21.9) 11/04/2024 GERD without esophagitis (ICD-10 - K21.9) 11/04/2024 Acute intractable tension-type headache (ICD-10 - G44.201) Multiple treatment options discussed with patient but she refused. 09/08/2024 Plaque psoriasis (ICD-10 - L40.0) 08/05/2024 Essential hypertension (ICD-10 - I10) 08/05/2024 Type 2 diabetes mellitus without complication, without long-term current use of insulin (ICD-10 - E11.9) 06/03/2024 Essential hypertension (ICD-10 - I10) 06/03/2024 Type 2 diabetes mellitus without complication, without long-term current use of insulin (ICD-10 - E11.9) 04/06/2024 Rib pain on right side (ICD-10 [...] prescription in lesser amount. [place] PAT verified. 03/08/2025 Angioedema, initial encounter (ICD-10 - T78.3XXA) 03/08/2025 Annual wellness visit (ICD-10 - Z00.00) 03/01/2025 Angioedema, initial encounter (ICD-10 - T78.3XXA) 03/01/2025 GERD without esophagitis (ICD-10 - K21.9) 02/24/2025 GERD without esophagitis (ICD-10 - K21.9) Using OTC medication that has improved symptoms. 02/24/2025 Acute intractable tension-type headache (ICD-10 - G44.201) Multiple treatment options discussed with patient but she refused. 03/01/2025 Acute intractable tension-type headache (ICD-10 - G44.201) 03/08/2025 GERD without esophagitis (ICD-10 - K21.9) 06/03/2024 Mixed hyperlipidemia (ICD-10 - E78.2) 08/05/2024 Mixed hyperlipidemia (ICD-10 - E78.2) 03/22/2025 Acute intractable tension-type headache (ICD-10 - G44.201) 11/04/2024 Essential hypertension (ICD-10 - I10) 12/02/2024 Acute intractable tension-type headache (ICD-10 - G44.201) Multiple treatment options discussed with patient but she refused. 12/02/2024 Essential hypertension (ICD-10 - I10) 12/02/2024 Type 2 diabetes mellitus without complication, without long-term current use of insulin (ICD-10 - E11.9) 03/22/2025 Essential hypertension (ICD-10 - I10) 11/04/2024 Type 2 diabetes mellitus without complication, without long-term current use of insulin (ICD-10 - E11.9) 08/05/2024 Acquired hypothyroidism (ICD-10 - E03.9) 06/03/2024 Acquired hypothyroidism (ICD-10 - E03.9) 03/08/2025 Acute intractable tension-type headache (ICD-10 - G44.201) 03/01/2025 Essential hypertension (ICD-10 - I10) 02/24/2025 Essential hypertension (ICD-10 - I10) 02/24/2025 Type 2 diabetes mellitus without complication, without long-term current use of insulin (ICD-10 - E11.9) 03/01/2025 Type 2 diabetes mellitus without complication, without long-term current use of insulin (ICD-10 - E11.9) 03/08/2025 Essential hypertension (ICD-10 - I10) 06/03/2024 Non-seasonal allergic rhinitis, unspecified trigger (ICD-10 - J30.89) 08/05/2024 Non-seasonal allergic rhinitis, unspecified trigger (ICD-10 - J30.89) 11/04/2024 Mixed hyperlipidemia (ICD-10 - E78.2) 03/22/2025 Mixed hyperlipidemia (ICD-10 - E78.2) 12/02/2024 Mixed hyperlipidemia (ICD-10 - E78.2) 12/02/2024 Acquired hypothyroidism (ICD-10 - E03.9) 03/22/2025 Acquired hypothyroidism (ICD-10 - E03.9) 11/04/2024 Acquired hypothyroidism (ICD-10 - E03.9) 08/05/2024 Benign paroxysmal positional vertigo, unspecified laterality (ICD-10 - H81.10) 06/03/2024 Benign paroxysmal positional vertigo, unspecified laterality (ICD-10 - H81.10) 03/01/2025 Mixed hyperlipidemia (ICD-10 - E78.2) 03/08/2025 Type 2 diabetes mellitus without complication, without long-term current use of insulin (ICD-10 - E11.9) 02/24/2025 Mixed hyperlipidemia (ICD-10 - E78.2) 02/24/2025 Acquired hypothyroidism (ICD-10 - E03.9) 03/01/2025 Acquired hypothyroidism (ICD-10 - E03.9) 03/08/2025 Mixed hyperlipidemia (ICD-10 - E78.2) 08/05/2024 Stage 3a chronic kidney disease (ICD-10 - N18.31) 11/04/2024 Non-seasonal allergic rhinitis, unspecified trigger (ICD-10 - J30.89) 03/22/2025 Non-seasonal allergic rhinitis, unspecified trigger (ICD-10 - J30.89) 12/02/2024 Non-seasonal allergic rhinitis, unspecified trigger (ICD-10 - J30.89) 03/22/2025 Simple chronic bronchitis (ICD-10 - J41.0) 08/05/2024 Facial skin lesion (ICD-10 - L98.9) 03/08/2025 Acquired hypothyroidism (ICD-10 - E03.9) 02/24/2025 Non-seasonal allergic rhinitis, unspecified trigger (ICD-10 - J30.89) 03/01/2025 Non-seasonal allergic rhinitis, unspecified trigger (ICD-10 - J30.89) 03/01/2025 Simple chronic bronchitis (ICD-10 - J41.0) 03/08/2025 Non-seasonal allergic rhinitis, unspecified trigger (ICD-10 - J30.89) 08/05/2024 Seborrheic keratosis (ICD-10 - L82.1) 03/08/2025 Simple chronic bronchitis (ICD-10 - J41.0) 02/24/2025 Other This chart has been transcribed by a computerized dictation system. There are likely to be multiple speech therapy director inaccuracies despite chart review. 03/22/2025 Other This chart has been transcribed by a computerized dictation system. There are likely to be multiple speech therapy director inaccuracies despite chart review. 04/06/2024 Other This chart has been transcribed by a computerized dictation system. There are likely to be multiple speech therapy director inaccuracies despite chart review. 06/03/2024 Other This chart has been transcribed by a computerized dictation system. There are likely to be multiple speech therapy director inaccuracies despite chart review. 08/05/2024 Other This chart has been transcribed by a computerized dictation system. There are likely to be multiple speech therapy director inaccuracies despite chart review. 09/08/2024 Other This chart has been transcribed by a computerized dictation system. There are likely to be multiple speech therapy director inaccuracies despite chart review. 09/10/2024 Other This chart has been transcribed by a computerized dictation system. There are likely to be multiple speech therapy director inaccuracies despite chart review. 09/30/2024 Other This chart has been transcribed by a computerized dictation system. There are likely to be multiple speech therapy director inaccuracies despite chart review. 11/04/2024 Other This chart has been transcribed by a computerized dictation system. There are likely to be multiple speech therapy director inaccuracies despite chart review. 12/02/2024 Other This chart has been transcribed by a computerized dictation system. There are likely to be multiple speech therapy director inaccuracies despite chart review. 02/05/2025 Other This chart has been transcribed by a computerized dictation system. There are likely to be multiple speech therapy director inaccuracies despite chart review. 03/01/2025 Other This chart has been transcribed by a computerized dictation system. There are likely to be multiple speech therapy director inaccuracies despite chart review. 03/08/2025 Other This chart has been transcribed by a computerized dictation system. There are likely to be multiple speech therapy director inaccuracies despite chart review. Plan Of Treatment Pending Test Test Name Order Date Ultrasound : Right Upper Quadrant 2023 X ray : Rib series, right 04/06/2024 MAMMOGRAM, SCREENING 09/17/2023 Ultrasound : Kidneys 09/17/2023 *EKG 12/19/2023 Hemoglobin [id number] 10/17/2023 Hepatic Function Panel [id number] 2023 Lipid Panel-[id number] 10/17/2023 Next Appt Details Provider Name:Ninoska Lewis, 05/24/2025 11:00:00 AM, [address] [place] [address], [phone], Insurance Providers Payer Name Payer Address Payer Phone Subscriber Number Group Number Insured Name Patient Relationship to Insured Coverage Start Date Coverage End Date [employer] [address] [place] [address] [id number] Sylwia Correia Self - patient is the insured [facility] [address] [place] [address] [id number] Sylwia Correia Self - patient is the insured Medical (General) History Medical History History ICD Code Essential hypertension [...]
== END 2025-03-23 13:25 | disposition home or self-care (01) ==
LOC: HO.LAB 13:24
PROVIDERS: PCP Internal Medicine
DX: R07.9 Chest pain, unspecified (principal)
CPT/HCPCS: 36415; 80048; 80061